=== PATIENT | male | born 1930 | race Caucasian/White ===

== ENCOUNTER 2016-08-05 10:51 | Inpatient (IN) | payer MEDICARE ==
[2016-08-05] MEDS ORDERED: NITROGLYCERIN SL TABS 0.4 MG TAB SUBLINGUAL STA (16:01)
[2016-08-05] MEDS ORDERED: MORPHINE SULFATE 2 MG/ML SYRINGE IVP PRN (16:04)
[2016-08-05] MEDS ORDERED: SODIUM CHLORIDE 0.9% 1,000 ML in EMPTY BAG 1 BAG IV ONE (16:11)
[2016-08-05] MEDS ORDERED: ATORVASTATIN 80 MG TAB PO STA (16:11)
[2016-08-05] MEDS ORDERED: ALPRAZolam 0.25 MG TAB PO PRN (16:11)
[2016-08-05] MEDS ORDERED: ALPRAZolam 0.5 MG TAB PO PRN (16:11)
[2016-08-05] MEDS ORDERED: NITROGLYCERIN SL TABS 0.4 MG TAB SUBLINGUAL PRN (16:11)
[2016-08-05] MEDS ORDERED: ASPIRIN 325 MG TAB PO STA (16:11)
[2016-08-05] MEDS ORDERED: ASPIRIN 81 MG CHEW PO STA (16:14)
[2016-08-05] MEDS ORDERED: HEPARIN SODIUM,PORCINE/D5W PMX 25,000 UNIT in DEXTROSE/WATER 1 500ML.BAG IV STA (16:16)
[2016-08-05] MEDS: CALCITONIN 200 USP/1 NASAL SPRAY 3.7ML BTL NASAL SCH (16:44)
[2016-08-05 18:17] LABS: Basophils % (A) 0 %; CH 35.2; Eosinophils # (A) 0.3 k/uL (0-0.7); Eosinophils % (A) 3 %; HCT 50.3 % (39.0-53.0); HDW 3.61; Luc % (Auto) 1; Lymphocytes % (A) 11 %; MCH 34.3 pg (25.0-35.0); MCHC 33.8 g/dL (31.0-37.0); MCV 101.5 fL (80.0-100.0); Macrocytosis Slight; Mean Platelet Volume 7.6; Monocytes # (A) 0.4 k/uL (0-1.0); Monocytes % (A) 4 %; Neutrophils # (A) 7.8 k/uL (1.3-7.7); Neutrophils % (A) 81 %; Poikilocytosis Slight; RBC 4.96 m/uL (4.30-5.90); WBC 9.7 k/uL (3.8-10.6); WBC (Perox) 10.04
[2016-08-05 18:33] LABS: INR 3.5 (<1.1); Partial Thromboplastin Time 32.8 sec (22.0-30.0); Prothrombin Time 34.1 sec (9.0-12.0)
[2016-08-05 18:35] LABS: ALT 40 U/L (21-72); AST 82 U/L (17-59); Alkaline Phosphatase 61 U/L (38-126); Anion Gap 10 mmol/L; Blood Urea Nitrogen 21 mg/dL (9-20); Calcium 8.8 mg/dL (8.4-10.2); Carbon Dioxide 25 mmol/L (22-30); Chloride 103 mmol/L (98-107); Glucose 130 mg/dL (74-99); Magnesium 1.8 mg/dL (1.6-2.3); Non-African American GFR(MDRD) >60 (>60 ml/min/1.73 sqM); Potassium 4.6 mmol/L (3.5-5.1); Sodium 138 mmol/L (137-145); Total Bilirubin 1.7 mg/dL (0.2-1.3); Total Protein 6.8 g/dL (6.3-8.2)
[2016-08-05 18:56] LABS: Creatine Kinase MB 14.2 ng/mL (0.0-2.4); Troponin I 5.66 ng/mL (0.000-0.034)
[2016-08-05 19:13] LABS: Manual Review Performed
--- NOTE | 2016-08-05 19:38 | XR ---
EXAMINATION TYPE: XR Hip RT and AP Pelvis DATE OF EXAM: 08/05/2016 7:34 PM COMPARISON: NONE HISTORY: Hip fracture TECHNIQUE: A single AP view of the pelvis is obtained. Two views of the right hip are obtained. FINDINGS: There is a fracture of the right femoral neck with slight impaction and coxa vera deformit y. There is no dislocation. Pelvic ring is intact. CONCLUSION: Impacted right femoral neck fracture.
--- NOTE | 2016-08-05 19:39 | XR ---
EXAMINATION TYPE: XR femur RT DATE OF EXAM: 08/05/2016 7:34 PM COMPARISON: NONE HISTORY: Hip pain TECHNIQUE: 4 views FINDINGS: There is an impacted fracture of the femoral neck with coxa vera deformity. Knee joint appe ars intact. There is vascular calcification. IMPRESSION: Femoral neck fracture.
[2016-08-05] MEDS ORDERED: PHYTONADIONE 5 MG in SODIUM CHLORIDE 0.9% 50 ML IVPB STA (19:58)
[2016-08-05] MEDS: MORPHINE SULFATE 2 MG/ML SYRINGE IVP PRN (20:48)
[2016-08-05] MEDS: SOTALOL 80 MG TAB PO SCH (21:02)
[2016-08-06 01:01] LABS: INR 2.2 (<1.1); Partial Thromboplastin Time 49.3 sec (22.0-30.0); Prothrombin Time 21.4 sec (9.0-12.0)
[2016-08-06] MEDS: MORPHINE SULFATE 2 MG/ML SYRINGE IVP PRN ×2 (05:36→18:56)
[2016-08-06 06:57] LABS: Basophils % (A) 0 %; CH 35.2; CHCM 34.9; Eosinophils # (A) 0.3 k/uL (0-0.7); Eosinophils % (A) 4 %; HCT 45.2 % (39.0-53.0); HDW 3.62; Luc # (Auto) 0.07; Luc % (Auto) 1; Lymphocytes % (A) 12 %; MCH 33.8 pg (25.0-35.0); MCHC 33.2 g/dL (31.0-37.0); MCV 101.7 fL (80.0-100.0); Macrocytosis Slight; Mean Platelet Volume 7.8; Monocytes # (A) 0.4 k/uL (0-1.0); Monocytes % (A) 5 %; Neutrophils # (A) 6.3 k/uL (1.3-7.7); Neutrophils % (A) 78 %; Poikilocytosis Slight; RBC 4.44 m/uL (4.30-5.90); RDW 15.3 % (11.5-15.5); WBC 8.1 k/uL (3.8-10.6); WBC (Perox) 8.13
[2016-08-06 07:06] LABS: INR 1.3 (<1.1); Partial Thromboplastin Time 39.8 sec (22.0-30.0)
[2016-08-06 07:11] LABS: Anion Gap 8 mmol/L; Blood Urea Nitrogen 19 mg/dL (9-20); Calcium 8.5 mg/dL (8.4-10.2); Carbon Dioxide 28 mmol/L (22-30); Chloride 104 mmol/L (98-107); Glucose 123 mg/dL (74-99); Non-African American GFR(MDRD) >60 (>60 ml/min/1.73 sqM); Potassium 4.5 mmol/L (3.5-5.1); Sodium 140 mmol/L (137-145)
[2016-08-06] MEDS ORDERED: ASPIRIN 325 MG TAB PO STA (08:01)
[2016-08-06] MEDS: CALCITONIN 200 USP/1 NASAL SPRAY 3.7ML BTL NASAL SCH (08:23)
[2016-08-06] MEDS: SOTALOL 80 MG TAB PO SCH ×2 (08:23→20:43)
--- NOTE | 2016-08-06 09:17 | P.CNOR ---
History of Present Illness - [facility] Consult date: 08/06/16 Consult reason: fracture (Right hip fracture) History of present illness: The patient is an 85-year-old male who was transferred from [facility] yesterday for interventional cardiac cath. The patient originally presented to [facility] with right hip pain after sustaining a fall at home. Upon evaluation the patient was found to have elevated cardiac enzymes and and a right femoral neck fracture. The patient was seen and evaluated by Dr. Thomas, orthopedic surgeon, at [facility] and a right hip hemiarthroplasty was scheduled until further cardiac workup revealed for a need interventional cardiac catheterization by Dr. Napier. Subsequently the patient was transferred to [facility]. We were consulted for further evaluation and care of his right hip fracture. The patient states that he does not recall how he fell but he denies hitting his head and states that he did hit his right shoulder on the wall before falling on the floor. He denies shoulder pain at this time. It is believed that he had a cardiac event prior to the fall. He denies using any assistive devices at home such as a walker or cane. The patient was seen and evaluated this morning at the bedside. He states he has hip pain at this time. Review of Systems All systems: negative Constitutional: Denies chills, Denies fever Eyes: right discharge Cardiovascular: Denies chest pain, Denies shortness of breath Gastrointestinal: Denies abdominal pain, Denies nausea, Denies vomiting Musculoskeletal: right: hip pain Neurological: Denies head injury, Denies headaches Past Medical History Past Medical History: Atrial Fibrillation, Asthma, Coronary Artery Disease (CAD) , Myocardial Infarction (GA), Osteoarthritis (OA), Prostate Disorder Additional Past Medical History / Comment(s): 08-05-16pt came from [facility]-fall/rt fenoral head fx, c/p. other past medical hx include: diverticulosis, colon cancer 1977(had sx-no chemo or radiation), gallstones(had sx),occ constipation, rt eye cataract, asthma as a child, hayfever, oa- rt hip Last Myocardial Infarction Date:: 1988 History of Any Multi-Drug Resistant Organisms: None Reported Past Surgical History: Bowel Resection, Cholecystectomy, Coronary Bypass/CABG, Heart Catheterization, Hernia Repair, Tonsillectomy Additional Past Surgical History / Comment(s): colonoscopies,polypectomy, aaa repair 2000, triple vessel cabg 1988, lt carotid endarterectomy,rt inguinal hernia, "has teresa in colon since sx" Past Anesthesia/Blood Transfusion Reactions: No Reported Reaction Additional Past Anesthesia/Blood Transfusion Reaction / Comm: 2000-received blood -no reaction Past Psychological History: No Psychological Hx Reported Additional Psychological History / Comment(s): pt lives alone in own home, no pets,(a modular 1 level w/ 4 steps up to door).uses a walker when up.no other medical equipment at home. no outside services. still drives-goes out to breakfast every am.pt served in the [employer] and worked at [employer] till retired. Smoking Status: Former smoker Past Alcohol Use History: None Reported Additional Past Alcohol Use History / Comment(s): quit smoking 1985 stated smoked between 5-10 years 1ppd. Past Drug Use History: None Reported - Past Family History Mother Family Medical History: No Reported History Additional Family Medical History / Comment(s): from "natural causes" Father Additional Family Medical History / Comment(s): kidney failure Medications and Allergies Home Medications Medication Instructions Recorded Confirmed Type Sotalol [Betapace] 80 mg PO DAILY 08/05/16 08/05/16 History Warfarin [Coumadin] 2.5 mg PO SUTH 08/05/16 08/05/16 History Warfarin [Coumadin] 5 mg PO MOTUWEFRSA 08/05/16 08/05/16 History Allergies Allergy/AdvReac Type Severity Reaction Status Date / Time No Known Allergies Allergy Verified 08/05/16 16:19 Physical Examination The patient is in no acute distress. He is alert and oriented 2. The patient' s head is normocephalic atraumatic. Cervical spine exam reveals no pain upon palpation and no step-offs noted. Exam of the bilateral upper extremities reveal no pain upon palpation or passive range of motion. No right shoulder pain on palpation. No open wounds are present. Exam of the bilateral lower extremities reveal chronic skin changes to the lower legs due to peripheral vascular insufficiency. No open wounds are present. The right lower extremity reveals a externally rotated and shortened leg. There is pain to any motion to the right leg. There is pain upon palpation of the lateral hip. There is no pain to the distal femur or knee. Bilateral calves are soft and nontender. Neurological and circulatory status is intact. He appears to have blood in his urine that is visible in the wilson catheter. Results - Labs Labs: Abnormal Lab Results - Last 24 Hours (Table) 08/05/16 08/05/16 08/05/16 Range/Units 17:44 17:44 17:44 MCV 101.5 H (80.0-100.0) fL Plt Count 83 L (150-450) k/uL Neutrophils # 7.8 H (1.3-7.7) k/uL PT 34.1 H (9.0-12.0) sec APTT 32.8 H (22.0-30.0) sec BUN (9-20) mg/dL Glucose (74-99) mg/dL Total Bilirubin (0.2-1.3) mg/dL AST (17-59) U/L Total Creatine Kinase 277 H (55-170) U/L CK-MB (CK-2) 14.2 H* (0.0-2.4) ng/mL Troponin I 5.660 H* (0.000-0.034) ng/mL 08/05/16 08/06/16 08/06/16 Range/Units 17:44 00:32 06:26 MCV (80.0-100.0) fL Plt Count (150-450) k/uL Neutrophils # (1.3-7.7) k/uL PT 21.4 H 13.0 H (9.0-12.0) sec APTT 49.3 H 39.8 H (22.0-30.0) sec BUN 21 H (9-20) mg/dL Glucose 130 H (74-99) mg/dL Total Bilirubin 1.7 H (0.2-1.3) mg/dL AST 82 H (17-59) U/L Total Creatine Kinase (55-170) U/L CK-MB (CK-2) (0.0-2.4) ng/mL Troponin I (0.000-0.034) ng/mL 08/06/16 08/06/16 Range/Units 06:26 06:26 MCV 101.7 H (80.0-100.0) fL Plt Count 72 L (150-450) k/uL Neutrophils # (1.3-7.7) k/uL PT (9.0-12.0) sec APTT (22.0-30.0) sec BUN (9-20) mg/dL Glucose 123 H (74-99) mg/dL Total Bilirubin (0.2-1.3) mg/dL AST (17-59) U/L Total Creatine Kinase (55-170) U/L CK-MB (CK-2) (0.0-2.4) ng/mL Troponin I (0.000-0.034) ng/mL H & H 08/05/16 08/06/16 Range/Units 17:44 06:26 Hgb 17.0 15.0 (13.0-17.5) gm/dL Hct 50.3 45.2 (39.0-53.0) % Coagulation 08/05/16 08/06/16 08/06/16 Range/Units 17:44 00:32 06:26 INR 3.5 2.2 1.3 (<1.1) Result Diagrams: 08/06/16 06:26 08/06/16 06:26 - Diagnostic results Hip x-ray: image reviewed (Impacted right femoral neck fracture) Assessment and Plan (1) Fall Status: Acute (2) Hip pain, right Status: Acute (3) Closed right hip fracture Status: Acute Plan: The clinical and x-ray findings were discussed with the patient. No family is at the bedside today. The case was also discussed at length with Dr. Orellana. The patient is scheduled to undergo a cardiac cath with possible stents today. We will await medical and cardiology clearance for surgery. The patient is most likely a high risk for surgery due to current cardiac condition. The patient will be scheduled for a right hip hemiarthroplasty as soon as he is cleared for surgery, ideally in the next 24-48 hours to improve patient outcome. Continue pain control. Continue bedrest and non-weightbearing to the right lower extremity. We will continue to follow the patient closely and make further recommendations depending on patient's course.
[2016-08-06] MEDS ORDERED: LIDOCAINE 2% INJ 20 MG/ML (20 ML MDV) ONE (12:48)
[2016-08-06] MEDS ORDERED: MIDAZOLAM 2 MG/2 ML VIAL ONE (13:10)
[2016-08-06] MEDS ORDERED: fentaNYL (PF) 50 MCG/ML 2 ML AMP IV ONE (13:13)
[2016-08-06] MEDS ORDERED: fentaNYL (PF) 50 MCG/ML 2 ML AMP ONE (13:13)
[2016-08-06] MEDS ORDERED: LIDOCAINE 2% INJ 20 MG/ML SQ ONE (13:14)
[2016-08-06] MEDS ORDERED: HYDROcodone/APAP 5-325MG 1 EACH TAB PO PRN (13:18)
[2016-08-06] MEDS ORDERED: FUROSEMIDE 10 MG/ML 4 ML VIAL ONE (13:21)
[2016-08-06] MEDS ORDERED: IOHEXOL 350 MG/ML 100 ML BOTTLE INJ ONE (13:22)
[2016-08-06] MEDS ORDERED: FUROSEMIDE 10 MG/ML 4 ML VIAL IV ONE (13:23)
[2016-08-06] MEDS ORDERED: SODIUM CHLORIDE 0.9% 1,000 ML IV ONE (13:25)
[2016-08-06] MEDS ORDERED: RX INFO: IV CONTRAST WAS GIVEN 1 EACH MISC MISCELLANE PRN (13:27)
--- NOTE | 2016-08-06 14:09 | P.HPIM ---
History of Present Illness H&P Date: 08/06/16 85-year-old gentleman those initially seen at [facility] after sustaining a fall and having a right femoral neck fracture. Patient stated he is had multiple falls in the recent times. Patient has been on anticoagulant for her atrial fibrillation and maintained on sotalol. Patient does have a history of CAD status post CABG. In the initial evaluation patient was noted to have an elevated troponin with EKG consistent with the Q waves in the lateral inferior leads. Patient was hence transferred to [facility] for Jorge catheterization. Today on evaluation patient appears to be slightly confused states to have pain in his hip. Patient has had any chest pain, difficult in breathing, nausea, vomiting. Patient apparently had an episode of agitation where he pulled his [place] catheter and thereafter noting blood in his urine. Patient's heparin was held. Currently with his mental status there is some concern or if patient should undergo cardiac catheterization or not Review of Systems ROS unobtainable: due to mental status Past Medical History Past Medical History: Atrial Fibrillation, Asthma, Coronary Artery Disease (CAD) , Myocardial Infarction (GA), Osteoarthritis (OA), Prostate Disorder Additional Past Medical History / Comment(s): 08-05-16pt came [facility]-fall/rt fenoral head fx, c/p. other past medical hx include: diverticulosis, colon cancer 1977(had sx-no chemo or radiation), gallstones(had sx),occ constipation, rt eye cataract, asthma as a child, hayfever, oa- rt hip Last Myocardial Infarction Date:: 1988 History of Any Multi-Drug Resistant Organisms: None Reported Past Surgical History: Bowel Resection, Cholecystectomy, Coronary Bypass/CABG, Heart Catheterization, Hernia Repair, Tonsillectomy Additional Past Surgical History / Comment(s): colonoscopies,polypectomy, aaa repair 2000, triple vessel cabg 1988, lt carotid endarterectomy,rt inguinal hernia, "has teresa in colon since sx" Past Anesthesia/Blood Transfusion Reactions: No Reported Reaction Additional Past Anesthesia/Blood Transfusion Reaction / Comment(s): 2000- received blood -no reaction Past Psychological History: No Psychological Hx Reported Additional Psychological History / Comment(s): pt lives alone in own home, no pets,(a modular 1 level w/ 4 steps up to door).uses a walker when up.no other medical equipment at home. no outside services. still drives-goes out to breakfast every am.pt served in the [employer] and worked at [employer] till retired. Smoking Status: Former smoker Past Alcohol Use History: None Reported Additional Past Alcohol Use History / Comment(s): quit smoking 1985 stated smoked between 5-10 years 1ppd. Past Drug Use History: None Reported - Past Family History Mother Family Medical History: No Reported History Additional Family Medical History / Comment(s): from "natural causes" Father Additional Family Medical History / Comment(s): kidney failure Medications and Allergies Home Medications Medication Instructions Recorded Confirmed Type Sotalol [Betapace] 80 mg PO DAILY 08/05/16 08/05/16 History Warfarin [Coumadin] 2.5 mg PO SUTH 08/05/16 08/05/16 History Warfarin [Coumadin] 5 mg PO MOTUWEFRSA 08/05/16 08/05/16 History Allergies Allergy/AdvReac Type Severity Reaction Status Date / Time No Known Allergies Allergy Verified 08/05/16 16:19 Physical Exam Vitals: Vital Signs Temp Pulse Pulse Resp BP Pulse Ox 08/06/16 12:08 98.4 F 78 16 138/73 89 L 08/06/16 08:00 97.4 F L 85 117/75 90 L 08/06/16 07:54 97.4 F L 83 16 117/75 90 L 08/06/16 04:00 98.0 F 81 18 121/67 91 L 08/06/16 00:00 98.1 F 74 18 124/62 91 L 08/05/16 21:02 96.2 F L 92 18 140/75 90 L 08/05/16 20:30 98.3 F 102 H 18 160/95 93 L 08/05/16 15:30 96.3 F L 75 18 143/82 93 L Intake and Output 08/05/16 08/06/16 08/06/16 22:59 06:59 14:59 Intake Total 1285.2 150 Output Total 600 550 Balance -600 735.2 150 Intake: IV 1285.2 150 Heparin Sodium,Porcine/ 235.2 D5w Pmx 25,000 unit In Dextrose/Water 1 500ml. bag @ 11.1 UNITS/KG/HR 19 .86 mls/hr IV .Q24H STA Rx#:[id number] Phytonadione 5 mg In 50 Sodium Chloride 0.9% 50 ml @ 100 mls/hr IVPB ONCE STA Rx#:[id number] Sodium Chloride 0.9% 1, 1000 000 ml In Empty Bag 1 bag @ 1 ML/KG/HR 89.5 mls/hr IV .[id number] ONE Rx#: [id number] Output: Urine 600 550 Other: Voiding Method Indwelling Catheter Indwelling Catheter Indwelling Catheter Weight 89.5 kg 88.5 kg - Exam Physical exam Gen. appearance oriented 3 in no distress Neck is supple no JVD Lungs good air movement no rhonchi wheezing or crackles appreciate it. Heart S1-S2 heard regular rate and rhythm no murmurs appreciated Abdomen is soft nontender no organomegaly bowel sounds are intact Neurologically cranial nerves II-12 grossly intact no focal motor or sensory deficits noted Skin lower extremities and wound is noted on the left lower extremity minimal erythema. Significantly improved. Results CBC & Chem 7: 08/06/16 06:26 08/06/16 06:26 Labs: Abnormal Lab Results - Last 24 Hours (Table) 08/05/16 08/05/16 08/05/16 Range/Units 17:44 17:44 17:44 MCV 101.5 H (80.0-100.0) fL Plt Count 83 L (150-450) k/uL Neutrophils # 7.8 H (1.3-7.7) k/uL PT 34.1 H (9.0-12.0) sec APTT 32.8 H (22.0-30.0) sec BUN (9-20) mg/dL Glucose (74-99) mg/dL Total Bilirubin (0.2-1.3) mg/dL AST (17-59) U/L Total Creatine Kinase 277 H (55-170) U/L CK-MB (CK-2) 14.2 H* (0.0-2.4) ng/mL Troponin I 5.660 H* (0.000-0.034) ng/mL 08/05/16 08/06/16 08/06/16 Range/Units 17:44 00:32 06:26 MCV (80.0-100.0) fL Plt Count (150-450) k/uL Neutrophils # (1.3-7.7) k/uL PT 21.4 H 13.0 H (9.0-12.0) sec APTT 49.3 H 39.8 H (22.0-30.0) sec BUN 21 H (9-20) mg/dL Glucose 130 H (74-99) mg/dL Total Bilirubin 1.7 H (0.2-1.3) mg/dL AST 82 H (17-59) U/L Total Creatine Kinase (55-170) U/L CK-MB (CK-2) (0.0-2.4) ng/mL Troponin I (0.000-0.034) ng/mL 08/06/16 08/06/16 Range/Units 06:26 06:26 MCV 101.7 H (80.0-100.0) fL Plt Count 72 L (150-450) k/uL Neutrophils # (1.3-7.7) k/uL PT (9.0-12.0) sec APTT (22.0-30.0) sec BUN (9-20) mg/dL Glucose 123 H (74-99) mg/dL Total Bilirubin (0.2-1.3) mg/dL AST (17-59) U/L Total Creatine Kinase (55-170) U/L CK-MB (CK-2) (0.0-2.4) ng/mL Troponin I (0.000-0.034) ng/mL Thrombosis Risk Factor Assmnt - Choose All That Apply Each Factor Represents 1 point: Medical pt on bed rest, Obesity (BMI >25) Other Risk Factors: Yes Each Risk Factor Represents 2 Points: Malignancy Each Risk Factor Represents 3 Points: Age 75 years or older Other congenital or acquired thrombophilia - If yes, enter type in comment: No Thrombosis Risk Factor Assessment Total Risk Factor Score: 7 Thrombosis Risk Factor Assessment Level: High Risk Assessment and Plan Plan: #1 NSTEMI #2 right femoral neck fracture #3 osteoporosis and the diagnosis from the recent fracture #4 history of CAD status post CABG #5 aortic aneurysm repair #6 history of atrial fibrillation on anticoagulation #7 acute toxic encephalopathy #8 hematuria due to trauma Plan Judicious use of narcotics. Patient will likely undergo cardiac catheterization after family is updated. Once patient undergoes cardiac cath, and discuss timing of the hip surgery. On weightbearing of the right hip.
[2016-08-06] MEDS: SODIUM CHLORIDE 0.9% 1,000 ML IV SCH ×2 (15:34→23:10)
--- NOTE | 2016-08-06 16:19 | ECHOF ---
Referral Reason:chest pain MEASUREMENTS -------- HEIGHT: 180.3 cm WEIGHT: 88.5 kg BP: IVSd: 1.0 cm (0.6 - 1.1) LVIDd: 4.8 cm (3.9 - 5.3) LVPWd: 1.0 cm (0.6 - 1.1) IVSs: 1.3 cm LVIDs: 3.8 cm LVPWs: 0.9 cm Ao Diam: 2.7 cm (2.0 - 3.7) AV Cusp: 1.6 cm (1.5 - 2.6) LA Diam: 4.1 cm (2.7 - 3.8) MV EXCURSION: 12.495 mm (> 18.000) MV EF SLOPE: 45 mm/s (70 - 150) EPSS: 1.8 cm MV E Primo: 0.70 m/s MV DecT: 274 ms MV A Primo: 0.68 m/s MV E/A Ratio: 1.02 AR PHT: 372 ms RAP: 5.00 mmHg RVSP: 9.20 mmHg FINDINGS -------- Sinus rhythm. This was a technically good study. Overall left ventricular systolic function is moderately impaired with, an EF between 35 - 40 %. Mid to basal inferiorlateral is hypokinetic The right ventricle is normal in size and function. The left atrium is mildly dilated. The right atrium is normal in size. Aortic valve is trileaflet and is mildly thickened. There is mild aortic regurgitation. The mitral valve leaflets are mildly thickened. Mild mitral regurgitation is present. Mild tricuspid regurgitation present. The right ventricular systolic pressure, as measured by Doppler, is 9.20mmHg. Pulmonic valve appears structurally normal. The aortic root size is normal. The pericardium is normal. CONCLUSIONS -------- 1. Sinus rhythm. 2. The mitral valve leaflets are mildly thickened. 3. Mild mitral regurgitation is present. 4. Mild tricuspid regurgitation present. 5. The right ventricular systolic pressure, as measured by Doppler, is 9.20mmHg. 6. Pulmonic valve appears structurally normal. 7. The aortic root size is normal. 8. The pericardium is normal. 9. This was a technically good study. 10. Overall left ventricular systolic function is moderately impaired with, an EF between 35 - 40 %. 11. Mid to basal inferiorlateral is hypokinetic 12. The right ventricle is normal in size and function. 13. The left atrium is mildly dilated. 14. The right atrium is normal in size. 15. Aortic valve is trileaflet and is mildly thickened. 16. There is mild aortic regurgitation. DAY CARE PROVIDER: Faina Ibarra RDCS
[2016-08-06] MEDS: METOPROLOL TARTRATE 25 MG TAB PO SCH (18:50)
--- NOTE | 2016-08-06 19:03 | PN ---
This patient was transferred from [facility]. Patient sustained fractures hip and also had inferolateral myocardial infarction. Attempt was made to do a cardiac catheterization, but wire could not be advanced because of severe right iliac stenosis. The patient also has evidence of gross hematuria. In view of that, patient cardiac catheterization was cancelled at present. We will continue medical treatment. Once the patient's hematuria clears up, we will discuss with Dr. Napier repeat attempt for the cardiac catheterization.
--- NOTE | 2016-08-06 21:45 | CC ---
DATE OF SERVICE: Performing physician: Charlie Napier, distiller. PROCEDURE PERFORMED: Attempted heart catheterization. INDICATION: This is a pleasant 85-year-old gentleman who presented to [facility] with syncope. He was ruled in for acute non-ST elevation myocardial infarction. He has significant EKG changes consistent with ischemia. I discussed with the patient the option between medical treatment versus conservative invasive treatment and he would like to proceed with heart catheterization. Approach: Right common femoral artery. COMPLICATIONS: None. Level of sedation: Moderate with sedation, length of 15 minutes. PROCEDURE DESCRIPTION: After obtaining informed consent, the patient was brought to the cardiac lab director. The right common femoral artery was cannulated using micropuncture technique. The micropuncture wire passed easily. Then I placed 6 Mauritian sheath in the right common femoral artery. Subsequently, I tried to advance a JL4 catheter but the catheter will not cross distal aorta, common iliac junction. At that point, I decided to stop and to abort the procedure. Postprocedure management will be: 1. Medical treatment. 2. Follow up with the patient.
[2016-08-07 03:38] LABS: Appearance,Urine Turbid (Clear); Bacteria,Urine Rare /hpf; Bilirubin,Urine Negative (Negative); Glucose,Urine (UA) Negative (Negative); Ketones,Urine Negative (Negative); Leukocyte Esterase,Urine Small (Negative); Mucus,Urine Moderate /hpf; Nitrite,Urine Negative (Negative); PH, Urine 5.5 (5.0-8.0); Particle Count 24080; Protein,Urine 1+ (Negative); RBC,Urine >182 /hpf (0-5); Specific Gravity,Urine 1.019 (1.001-1.035); Squamous Epithelial Cell,Urine 3 /hpf (0-4); UA Billing (MACRO vs. MICRO) MICRO; Urobilinogen,Urine <2.0 mg/dL (<2.0); WBC,Urine 70 /hpf (0-5)
[2016-08-07 07:09] LABS: Basophils % (A) 0 %; CHCM 35.4; Eosinophils # (A) 0.4 k/uL (0-0.7); Eosinophils % (A) 5 %; HCT 46.8 % (39.0-53.0); HDW 3.71; HGB 15.8 gm/dL (13.0-17.5); Luc # (Auto) 0.14; Luc % (Auto) 2; Lymphocytes # (A) 1.1 k/uL (1.0-4.8); Lymphocytes % (A) 12 %; MCH 33.8 pg (25.0-35.0); MCHC 33.8 g/dL (31.0-37.0); MCV 99.9 fL (80.0-100.0); Macrocytosis Slight; Mean Platelet Volume 8.4; Monocytes # (A) 0.4 k/uL (0-1.0); Monocytes % (A) 5 %; Neutrophils # (A) 7.1 k/uL (1.3-7.7); Neutrophils % (A) 77 %; Poikilocytosis Slight; RBC 4.69 m/uL (4.30-5.90); RDW 15.1 % (11.5-15.5); WBC 9.2 k/uL (3.8-10.6); WBC (Perox) 9.05
[2016-08-07 07:29] LABS: ALT 35 U/L (21-72); AST 51 U/L (17-59); Alkaline Phosphatase 56 U/L (38-126); Anion Gap 6 mmol/L; Blood Urea Nitrogen 23 mg/dL (9-20); Calcium 8.7 mg/dL (8.4-10.2); Carbon Dioxide 30 mmol/L (22-30); Chloride 106 mmol/L (98-107); Glucose 104 mg/dL (74-99); Magnesium 1.8 mg/dL (1.6-2.3); Non-African American GFR(MDRD) >60 (>60 ml/min/1.73 sqM); Potassium 4.3 mmol/L (3.5-5.1); Sodium 142 mmol/L (137-145); Total Bilirubin 1.6 mg/dL (0.2-1.3)
[2016-08-07] MEDS: METOPROLOL TARTRATE 25 MG TAB PO SCH ×2 (08:47→19:45)
[2016-08-07] MEDS: ASPIRIN 81 MG CHEW PO SCH (08:47)
[2016-08-07] MEDS: ATORVASTATIN 40 MG TAB PO SCH (08:47)
[2016-08-07] MEDS: CALCITONIN 200 USP/1 NASAL SPRAY 3.7ML BTL NASAL SCH (08:47)
[2016-08-07] MEDS: SOTALOL 80 MG TAB PO SCH ×2 (08:48→19:45)
--- NOTE | 2016-08-07 09:18 | XR ---
EXAMINATION TYPE: XR chest 1V portable DATE OF EXAM: 08/07/2016 9:06 AM COMPARISON: 08/04/2016 HISTORY: Shortness of breath TECHNIQUE: Single frontal view of the chest is obtained. FINDINGS: There is an asymmetric area of interstitial prominence and basilar consolidation on the le ft. Heart is enlarged and there is postoperative change. Surgical clips in the soft tissues left neck noted. IMPRESSION: 1. Stable x-ray with left basilar consolidation. There is an asymmetric interstitial process which co uld been the basis of interstitial pneumonitis, pneumonia or venous congestion.
--- NOTE | 2016-08-07 10:44 | P.PN ---
Subjective Principal diagnosis: Right femoral neck fracture Patient is an 85-year-old male seen at bedside today. He is pending clearance to undergo right hip hemiarthroplasty for his right femoral neck fracture. He has not been cleared yet by cardiology which it appears he is pending a cardiac cath. He continues to have right hip pain at the fracture site as expected. He denies numbness or tingling. He denies calf pain. He denies any new complaints. Review of systems is negative for fever, chills, chest pain, shortness breath, nausea, vomiting, dizziness, slurred speech or other. Objective - Vital Signs Vital signs: Vital Signs Temp 98.7 F 08/07/16 08:00 Pulse 115 H 08/07/16 08:00 Resp 18 08/07/16 04:00 BP 129/78 08/07/16 08:00 Pulse Ox 95 08/07/16 08:00 Intake & Output 08/06/16 08/07/16 08/07/16 18:59 06:59 18:59 Intake Total 150 825 Output Total 1000 1100 Balance -850 -275 Weight 89 kg Intake: IV 150 825 Sodium Chloride 0.9% 1, 825 000 ml @ 75 mls/hr IV . [id number] Rx#:[id number] Output: Urine 1000 1100 Other: Voiding Method Indwelling Catheter Indwelling Catheter Indwelling Catheter # Bowel Movements 0 - Exam Inspection of the right lower extremity shows a shortened externally rotated leg. There are no open wounds or lacerations. Sensation to light touch is intact throughout the right lower extremity. He has active motor with dorsiflexion and plantarflexion of the ankle, foot and toes. 1+ dorsalis pedis pulses present and less than 2 second cap refill is present. Calf is soft and nontender. - Constitutional General appearance: Present: no acute distress - Psychiatric Psychiatric: Present: A&O x's 3, appropriate affect, intact judgment & insight - Labs CBC & Chem 7: 08/07/16 06:53 08/07/16 06:53 Labs: Abnormal Lab Results - Last 24 Hours (Table) 08/07/16 08/07/16 08/07/16 Range/Units 03:00 06:53 06:53 Plt Count 74 L (150-450) k/uL BUN 23 H (9-20) mg/dL Glucose 104 H (74-99) mg/dL Total Bilirubin 1.6 H (0.2-1.3) mg/dL Total Protein 6.0 L (6.3-8.2) g/dL Albumin 3.0 L (3.5-5.0) g/dL Urine Protein 1+ H (Negative) Urine Blood Large H (Negative) Ur Leukocyte Esterase Small H (Negative) Urine RBC >182 H (0-5) /hpf Urine WBC 70 H (0-5) /hpf Urine Bacteria Rare H (None) /hpf Hyaline Casts 9 H (0-2) /lpf Urine Mucus Moderate H (None) /hpf Assessment and Plan (1) Closed right hip fracture Narrative/Plan: He'll continue with routine orthopedic protocol including pain management, nonweightbearing, neurovascular checks, DVT prophylaxis per cardiology and internal medicine, and medical management. Once he is cleared by cardiology and internal medicine plan will be to proceed with surgical intervention including a right hip hemiarthroplasty per Dr. Orellana. Status: Acute Time with Patient: Less than 30
[2016-08-07] MEDS: MORPHINE SULFATE 2 MG/ML SYRINGE IVP PRN (12:27)
--- NOTE | 2016-08-07 13:28 | P.PN ---
Subjective No interval changes. Complain of mild discomfort in the hip and groin. Objective - Vital Signs Vital signs: Vital Signs Temp 98.7 F 08/07/16 08:00 Pulse 58 L 08/07/16 12:00 Resp 18 08/07/16 04:00 BP 100/54 08/07/16 12:00 Pulse Ox 96 08/07/16 12:00 Intake & Output 08/06/16 08/07/16 08/07/16 18:59 06:59 18:59 Intake Total 150 825 Output Total 1000 1100 Balance -850 -275 Weight 89 kg Intake: IV 150 825 Sodium Chloride 0.9% 1, 825 000 ml @ 75 mls/hr IV . [id number] [facility] Rx#:[id number] Output: Urine 1000 1100 Other: Voiding Method Indwelling Catheter Indwelling Catheter Indwelling Catheter # Bowel Movements 0 - Exam Focused exam shows the right leg is shortened and externally rotated. Motor and sensory function is intact in the right leg. - Labs CBC & Chem 7: 08/07/16 06:53 08/07/16 06:53 Labs: Abnormal Lab Results - Last 24 Hours (Table) 08/07/16 08/07/16 08/07/16 Range/Units 03:00 06:53 06:53 Plt Count 74 L (150-450) k/uL BUN 23 H (9-20) mg/dL Glucose 104 H (74-99) mg/dL Total Bilirubin 1.6 H (0.2-1.3) mg/dL Total Protein 6.0 L (6.3-8.2) g/dL Albumin 3.0 L (3.5-5.0) g/dL Urine Protein 1+ H (Negative) Urine Blood Large H (Negative) Ur Leukocyte Esterase Small H (Negative) Urine RBC >182 H (0-5) /hpf Urine WBC 70 H (0-5) /hpf Urine Bacteria Rare H (None) /hpf Hyaline Casts 9 H (0-2) /lpf Urine Mucus Moderate H (None) /hpf Assessment and Plan (1) Closed right hip fracture Status: Acute Plan: The patient is not yet cleared for surgery by cardiology and internal medicine. Once the patient is cleared for surgery he will need a hemiarthroplasty. It doesn't sound like he is going to be cleared for surgery tomorrow. We'll plan on performing surgery once he is cleared this coming Tuesday or Tuesday. If things change and he is cleared by tomorrow we can take him to surgery tomorrow. In the interim he is to remain on bedrest with strict non- weightbearing of his right leg.
[2016-08-07] MEDS ORDERED: FUROSEMIDE 10 MG/ML 2 ML VIAL IV ONE (16:02)
--- NOTE | 2016-08-07 16:14 | P.PN ---
Subjective This is an 85-year-old gentleman who was transferred from [facility]. Patient sustained a hip fracture as well as an inferolateral myocardial infarction. Attempt was made to do a cardiac catheterization yesterday but the wire could not be advanced because of severe right iliac stenosis. The patient also had evidence of gross hematuria, likely secondary to trauma. In view of that patient's cardiac catheterization was canceled. Chest x-ray done this morning showed possible venous congestion. Upon examination, patient is resting in bed denying any complaints of shortness of breath or chest discomfort. Objective - Vital Signs Vital signs: Vital Signs Temp 98.7 F 08/07/16 08:00 Pulse 58 L 08/07/16 12:00 Resp 18 08/07/16 04:00 BP 100/54 08/07/16 12:00 Pulse Ox 96 08/07/16 12:00 Intake & Output 08/06/16 08/07/16 08/07/16 18:59 06:59 18:59 Intake Total 150 825 100 Output Total 1000 1100 300 Balance -850 -275 -200 Weight 89 kg Intake: IV 150 825 Sodium Chloride 0.9% 1, 825 000 ml @ 75 mls/hr IV . [id number] [facility] Rx#:[id number] Oral 100 Output: Urine 1000 1100 300 Other: Voiding Method Indwelling Catheter Indwelling Catheter Indwelling Catheter # Bowel Movements 0 - Exam PHYSICAL EXAMINATION: HEENT: Head is atraumatic, normocephalic. Pupils equal, round. Neck is supple. There is no elevated jugular venous pressure. HEART EXAMINATION: Heart sounds regular, S1 and S2 normal. No murmur or gallop heard. CHEST EXAMINATION: Lungs reveal crackles to bilateral bases. No chest wall tenderness is noted on palpation or with deep breathing. ABDOMEN: Soft, nontender. Bowel sounds are heard. No organomegaly noted. EXTREMITIES: 1+ peripheral pulses with no evidence of peripheral edema and no calf tenderness noted. NEUROLOGIC patient is awake, drowsy and oriented to person and place. . - Labs CBC & Chem 7: 08/07/16 06:53 08/07/16 06:53 Labs: Abnormal Lab Results - Last 24 Hours (Table) 08/07/16 08/07/16 08/07/16 Range/Units 03:00 06:53 06:53 Plt Count 74 L (150-450) k/uL BUN 23 H (9-20) mg/dL Glucose 104 H (74-99) mg/dL Total Bilirubin 1.6 H (0.2-1.3) mg/dL Total Protein 6.0 L (6.3-8.2) g/dL Albumin 3.0 L (3.5-5.0) g/dL Urine Protein 1+ H (Negative) Urine Blood Large H (Negative) Ur Leukocyte Esterase Small H (Negative) Urine RBC >182 H (0-5) /hpf Urine WBC 70 H (0-5) /hpf Urine Bacteria Rare H (None) /hpf Hyaline Casts 9 H (0-2) /lpf Urine Mucus Moderate H (None) /hpf Assessment and Plan Plan: Assessment and plan #1 inferior lateral myocardial infarction, unsuccessful attempt at cardiac catheterization #2 hip fracture #3 venous congestion on chest x-ray with crackles to bilateral From cardiac standpoint, we will decrease IV fluids to KVO. Give one dose of Lasix 20 mg IV push 1 now. We'll continue medical management at this time. Likely reattempt cardiac catheterization soon. Further recommendations to follow. MOVIE PROJECTIONIST note has been reviewed, I agree with a documented findings and plan of care. Patient was seen and examined.
--- NOTE | 2016-08-07 17:10 | P.PN ---
Subjective 85-year-old gentleman those initially seen at [facility] after sustaining a fall and having a right femoral neck fracture. Patient stated he is had multiple falls in the recent times. Patient has been on anticoagulant for her atrial fibrillation and maintained on sotalol. Patient does have a history of CAD status post CABG. In the initial evaluation patient was noted to have an elevated troponin with EKG consistent with the Q waves in the lateral inferior leads. Patient was hence transferred to [facility] for Jorge catheterization. Today on evaluation patient appears to be slightly confused states to have pain in his hip. Patient has had any chest pain, difficult in breathing, nausea, vomiting. Patient apparently had an episode of agitation where he pulled his Wilson catheter and thereafter noting blood in his urine. Patient's heparin was held. 08/07/16 Pt is awake answering questions appropriately. Continues to have pain in his right hip Cath via femoral route was unsuccessful Denies CONCHA, NATALIE. Objective - Vital Signs Vital signs: Vital Signs Temp 98.7 F 08/07/16 08:00 Pulse 58 L 08/07/16 12:00 Resp 18 08/07/16 04:00 BP 100/54 08/07/16 12:00 Pulse Ox 96 08/07/16 12:00 Intake & Output 08/06/16 08/07/16 08/07/16 18:59 06:59 18:59 Intake Total 150 825 100 Output Total 1000 1100 300 Balance -850 -275 -200 Weight 89 kg Intake: IV 150 825 Sodium Chloride 0.9% 1, 825 000 ml @ 75 mls/hr IV . [id number] [facility] Rx#:[id number] Oral 100 Output: Urine 1000 1100 300 Other: Voiding Method Indwelling Catheter Indwelling Catheter Indwelling Catheter # Bowel Movements 0 - Constitutional General appearance: Present: average body habitus, mild distress - EENT Eyes: Present: PERRLA - Neck Neck: Present: normal ROM - Respiratory Respiratory: bilateral: rales (bases) - Cardiovascular Rhythm: irregularly irregular - Gastrointestinal General gastrointestinal: Present: normal bowel sounds, soft. Absent: organomegaly, tenderness - Genitourinary Genitourinary Comment(s): wilson in place.No blood noted. - Neurologic Neurologic: Present: CNII-XII intact. Absent: focal deficits - Psychiatric Psychiatric: Present: A&O x's 3, appropriate affect - Labs CBC & Chem 7: 08/07/16 06:53 08/07/16 06:53 Labs: Abnormal Lab Results - Last 24 Hours (Table) 08/07/16 08/07/16 08/07/16 Range/Units 03:00 06:53 06:53 Plt Count 74 L (150-450) k/uL BUN 23 H (9-20) mg/dL Glucose 104 H (74-99) mg/dL Total Bilirubin 1.6 H (0.2-1.3) mg/dL Total Protein 6.0 L (6.3-8.2) g/dL Albumin 3.0 L (3.5-5.0) g/dL Urine Protein 1+ H (Negative) Urine Blood Large H (Negative) Ur Leukocyte Esterase Small H (Negative) Urine RBC >182 H (0-5) /hpf Urine WBC 70 H (0-5) /hpf Urine Bacteria Rare H (None) /hpf Hyaline Casts 9 H (0-2) /lpf Urine Mucus Moderate H (None) /hpf Assessment and Plan Plan: #1 NSTEMI #2 right femoral neck fracture #3 osteoporosis and the diagnosis from the recent fracture #4 history of CAD status post CABG #5 aortic aneurysm repair #6 history of atrial fibrillation on anticoagulation #7 acute toxic encephalopathy, improving #8 hematuria due to trauma Plan repeat cardiac cath on tuesday?potentially via radial approach, Iliac stenosis. start fentanyl patch. Hold off on hip surgery till cardiology clearance.
[2016-08-07] MEDS: SODIUM CHLORIDE 0.9% 1,000 ML IV SCH ×2 (17:53→19:49)
[2016-08-08 07:21] LABS: ALT 32 U/L (21-72); AST 56 U/L (17-59); Alkaline Phosphatase 59 U/L (38-126); Anion Gap 7 mmol/L; Blood Urea Nitrogen 28 mg/dL (9-20); Calcium 8.7 mg/dL (8.4-10.2); Carbon Dioxide 30 mmol/L (22-30); Chloride 104 mmol/L (98-107); Glucose 111 mg/dL (74-99); Magnesium 1.7 mg/dL (1.6-2.3); Non-African American GFR(MDRD) >60 (>60 ml/min/1.73 sqM); Potassium 4.1 mmol/L (3.5-5.1); Sodium 141 mmol/L (137-145); Total Bilirubin 1.7 mg/dL (0.2-1.3); Total Protein 5.7 g/dL (6.3-8.2)
--- NOTE | 2016-08-08 07:47 | XR ---
EXAMINATION TYPE: XR chest 1V portable DATE OF EXAM: 08/08/2016 7:14 AM COMPARISON: 08/07/2016 HISTORY: Difficulty breathing TECHNIQUE: Single frontal view of the chest is obtained. FINDINGS: Persistent predominantly interstitial process greater on the left with tiny effusion or pl eural thickening. Postsurgical change and cardiomegaly noted. Biapical pleural thickening. Could not exclude a tiny apical granuloma. IMPRESSION: 1. Persistent interstitial pattern correlate for interstitial pneumonitis or venous congestion. Under lying pulmonary fibrosis in the differential.
[2016-08-08] MEDS: ASPIRIN 81 MG CHEW PO SCH (08:33)
[2016-08-08] MEDS: SOTALOL 80 MG TAB PO SCH ×2 (08:34→20:53)
[2016-08-08] MEDS: METOPROLOL TARTRATE 25 MG TAB PO SCH ×2 (08:34→20:54)
[2016-08-08] MEDS: CALCITONIN 200 USP/1 NASAL SPRAY 3.7ML BTL NASAL SCH (08:34)
[2016-08-08] MEDS: ATORVASTATIN 40 MG TAB PO SCH (08:34)
[2016-08-08] MEDS: HYDROcodone/APAP 5-325MG 1 EACH TAB PO PRN (08:34)
[2016-08-08 08:37] LABS: CH 35.2; CHCM 35.3; HCT 43.4 % (39.0-53.0); HGB 15.1 gm/dL (13.0-17.5); MCH 35.1 pg (25.0-35.0); MCHC 34.8 g/dL (31.0-37.0); MCV 100.9 fL (80.0-100.0); RBC 4.31 m/uL (4.30-5.90); WBC 8.6 k/uL (3.8-10.6); WBC (Perox) 8.43
[2016-08-08 08:38] LABS: HDW 3.71; Macrocytosis Slight; Mean Platelet Volume 9.3; RDW 15.3 % (11.5-15.5)
[2016-08-08 08:39] LABS: Basophils % (A) 0 %; Eosinophils # (A) 0.6 k/uL (0-0.7); Eosinophils % (A) 8 %; Luc % (Auto) 2; Lymphocytes # (A) 1.1 k/uL (1.0-4.8); Lymphocytes % (A) 13 %; Monocytes # (A) 0.4 k/uL (0-1.0); Monocytes % (A) 5 %; Neutrophils # (A) 6.2 k/uL (1.3-7.7); Neutrophils % (A) 73 %; Poikilocytosis Slight
[2016-08-08 08:40] LABS: Luc # (Auto) 0.13
[2016-08-08] MEDS ORDERED: FUROSEMIDE 10 MG/ML 4 ML VIAL IV STA (09:16)
--- NOTE | 2016-08-08 10:02 | P.PN ---
Subjective Principal diagnosis: Right femoral neck fracture Patient is an 85-year-old male seen at bedside today. He is pending clearance to undergo right hip hemiarthroplasty for his right femoral neck fracture. He continues to have right hip pain at the fracture site as expected. He denies numbness or tingling. He denies calf pain. He denies any new complaints. Review of systems is negative for fever, chills, chest pain, shortness breath, nausea, vomiting, dizziness, slurred speech or other. Objective - Vital Signs Vital signs: Vital Signs Temp 96.9 F L 08/08/16 08:00 Pulse 82 08/08/16 08:00 Resp 18 08/08/16 04:00 BP 104/61 08/08/16 08:00 Pulse Ox 91 L 08/08/16 08:00 Intake & Output 08/07/16 08/08/16 08/08/16 17:59 06:59 18:59 Intake Total 120 Output Total Balance 120 Weight Intake: IV Sodium Chloride 0.9% 1, 000 ml @ 20 mls/hr IV . Q24H [facility] Rx#:[id number] Oral 120 Output: Urine Other: Voiding Method Indwelling Catheter # Bowel Movements - Exam Inspection of the right lower extremity shows a shortened externally rotated leg. There are no open wounds or lacerations. Sensation to light touch is intact throughout the right lower extremity. He has active motor with dorsiflexion and plantarflexion of the ankle, foot and toes. 1+ dorsalis pedis pulses present and less than 2 second cap refill is present. Calf is soft and nontender. - Constitutional General appearance: Present: no acute distress - Psychiatric Psychiatric: Present: A&O x's 3, appropriate affect, intact judgment & insight - Labs CBC & Chem 7: 08/08/16 06:15 08/08/16 06:15 Labs: Abnormal Lab Results - Last 24 Hours (Table) 08/08/16 08/08/16 Range/Units 06:15 06:15 MCV 100.9 H (80.0-100.0) fL MCH 35.1 H (25.0-35.0) pg Plt Count 73 L (150-450) k/uL BUN 28 H (9-20) mg/dL Glucose 111 H (74-99) mg/dL Total Bilirubin 1.7 H (0.2-1.3) mg/dL Total Protein 5.7 L (6.3-8.2) g/dL Albumin 2.8 L (3.5-5.0) g/dL Assessment and Plan (1) Closed right hip fracture Narrative/Plan: He'll continue with routine orthopedic protocol including pain management, nonweightbearing, neurovascular checks, DVT prophylaxis per cardiology and internal medicine, and medical management. Once he is cleared by cardiology and internal medicine plan will be to proceed with surgical intervention including a right hip hemiarthroplasty per Dr. Orellana. Status: Acute Time with Patient: Less than 30
[2016-08-08] MEDS: SODIUM CHLORIDE 0.9% 1,000 ML IV SCH (12:19)
--- NOTE | 2016-08-08 17:51 | P.PN ---
Subjective 85-year-old gentleman those initially seen at [facility] after sustaining a fall and having a right femoral neck fracture. Patient stated he is had multiple falls in the recent times. Patient has been on anticoagulant for her atrial fibrillation and maintained on sotalol. Patient does have a history of CAD status post CABG. In the initial evaluation patient was noted to have an elevated troponin with EKG consistent with the Q waves in the lateral inferior leads. Patient was hence transferred to [facility] for Jorge catheterization. Today on evaluation patient appears to be slightly confused states to have pain in his hip. Patient has had any chest pain, difficult in breathing, nausea, vomiting. Patient apparently had an episode of agitation where he pulled his [place] catheter and thereafter noting blood in his urine. Patient's heparin was held. 08/07/16 Pt is awake answering questions appropriately. Continues to have pain in his right hip Cath via femoral route was unsuccessful Denies CP, NATALIE. 08/08/16 Is more awake today Continues to have pain in his left hip No fevers, chills nausea, vomiting reported. Objective - Vital Signs Vital signs: Vital Signs Temp 97.0 F L 08/08/16 16:00 Pulse 64 08/08/16 16:00 Resp 18 08/08/16 04:00 BP 129/62 08/08/16 16:00 Pulse Ox 98 08/08/16 16:00 Intake & Output 08/07/16 08/08/16 08/08/16 17:59 06:59 18:59 Intake Total 380 Output Total 850 Balance -470 Weight Intake: IV 160 Sodium Chloride 0.9% 1, 160 000 ml @ 20 mls/hr IV . Q24H [facility] Rx#:[id number] Oral 220 Output: Urine 850 Other: Voiding Method Indwelling Catheter # Voids 0 # Bowel Movements 0 - Constitutional General appearance: Present: average body habitus, no acute distress - EENT Eyes: Present: PERRLA - Respiratory Respiratory: bilateral: rhonchi (transmitted from hypopharynx.) - Cardiovascular Rhythm: irregularly irregular Heart sounds: normal: S1, S2 - Gastrointestinal General gastrointestinal: Present: normal bowel sounds, soft. Absent: organomegaly, tenderness - Integumentary Integumentary: Present: normal - Neurologic Neurologic: Present: CNII-XII intact. Absent: focal deficits - Musculoskeletal Musculoskeletal Comment(s): right hip tenderness anteriorly. ROM worsens pain. - Psychiatric Psychiatric: Present: A&O x's 3, appropriate affect - Labs CBC & Chem 7: 08/08/16 06:15 08/08/16 06:15 Labs: Abnormal Lab Results - Last 24 Hours (Table) 08/08/16 08/08/16 Range/Units 06:15 06:15 MCV 100.9 H (80.0-100.0) fL MCH 35.1 H (25.0-35.0) pg Plt Count 73 L (150-450) k/uL BUN 28 H (9-20) mg/dL Glucose 111 H (74-99) mg/dL Total Bilirubin 1.7 H (0.2-1.3) mg/dL Total Protein 5.7 L (6.3-8.2) g/dL Albumin 2.8 L (3.5-5.0) g/dL Assessment and Plan Plan: #1 NSTEMI #2 right femoral neck fracture #3 osteoporosis and the diagnosis from the recent fracture #4 history of CAD status post CABG #5 aortic aneurysm repair #6 history of atrial fibrillation on anticoagulation #7 acute toxic encephalopathy, improving #8 hematuria due to trauma Plan repeat cardiac cath on tuesday?potentially via radial approach, Iliac stenosis. start fentanyl patch. Hold off on hip surgery till cardiology clearance. Judicious use of narcotics Restart lovenox for VTE, a fib.
--- NOTE | 2016-08-08 19:20 | P.PN ---
Subjective This patient is admitted with hip fracture and non-Q-wave myocardial infarction. And is feeling better but he is slightly short of breath. Since the chest x-ray done today is suggestive of mild congestive heart failure Objective - Vital Signs Vital signs: Vital Signs Temp 97.0 F L 08/08/16 16:00 Pulse 64 08/08/16 16:00 Resp 18 08/08/16 04:00 BP 129/62 08/08/16 16:00 Pulse Ox 98 08/08/16 16:00 Intake & Output 08/08/16 08/08/16 08/09/16 06:59 18:59 06:59 Intake Total 480 Output Total 850 Balance -370 Weight Intake: IV 160 Sodium Chloride 0.9% 1, 160 000 ml @ 20 mls/hr IV . Q24H [facility] Rx#:[id number] Oral 320 Output: Urine 850 Other: Voiding Method Indwelling Catheter # Voids 0 # Bowel Movements 0 - Exam Patient's vital signs are reviewed. Patient is in mild respiratory distress. First and second heart sounds are normal. Lungs reveal bilateral scattered wheezes. - Labs CBC & Chem 7: 08/08/16 06:15 08/08/16 06:15 Labs: Abnormal Lab Results - Last 24 Hours (Table) 08/08/16 08/08/16 Range/Units 06:15 06:15 MCV 100.9 H (80.0-100.0) fL MCH 35.1 H (25.0-35.0) pg Plt Count 73 L (150-450) k/uL BUN 28 H (9-20) mg/dL Glucose 111 H (74-99) mg/dL Total Bilirubin 1.7 H (0.2-1.3) mg/dL Total Protein 5.7 L (6.3-8.2) g/dL Albumin 2.8 L (3.5-5.0) g/dL Assessment and Plan Plan: I will give patient one dose of IV Lasix 40 mg daily. The patient is doing better we will consider cardiac catheterization tomorrow.
[2016-08-08] MEDS: HEPARIN SODIUM,PORCINE/D5W PMX 25,000 UNIT in DEXTROSE/WATER 1 500ML.BAG IV SCH (20:39)
[2016-08-09 03:05] LABS: Basophils % (A) 0 %; CH 35.3; CHCM 35.2; Eosinophils # (A) 0.6 k/uL (0-0.7); Eosinophils % (A) 7 %; HCT 45.4 % (39.0-53.0); HGB 15.1 gm/dL (13.0-17.5); Luc # (Auto) 0.12; Luc % (Auto) 1; Lymphocytes # (A) 1.2 k/uL (1.0-4.8); Lymphocytes % (A) 14 %; MCH 33.7 pg (25.0-35.0); MCHC 33.3 g/dL (31.0-37.0); MCV 101.3 fL (80.0-100.0); Macrocytosis Slight; Mean Platelet Volume 7.4; Monocytes # (A) 0.4 k/uL (0-1.0); Monocytes % (A) 5 %; Neutrophils # (A) 6.4 k/uL (1.3-7.7); Neutrophils % (A) 73 %; Poikilocytosis Slight; RBC 4.48 m/uL (4.30-5.90); RDW 15.1 % (11.5-15.5); WBC 8.7 k/uL (3.8-10.6); WBC (Perox) 9.34
[2016-08-09 03:11] LABS: ALT 42 U/L (21-72); AST 69 U/L (17-59); Alkaline Phosphatase 63 U/L (38-126); Anion Gap 11 mmol/L; Blood Urea Nitrogen 32 mg/dL (9-20); Carbon Dioxide 32 mmol/L (22-30); Chloride 101 mmol/L (98-107); Glucose 126 mg/dL (74-99); Non-African American GFR(MDRD) >60 (>60 ml/min/1.73 sqM); Sodium 144 mmol/L (137-145); Total Bilirubin 1.5 mg/dL (0.2-1.3); Total Protein 6.1 g/dL (6.3-8.2)
--- NOTE | 2016-08-09 07:47 | XR ---
EXAMINATION TYPE: XR chest 2V DATE OF EXAM: 08/09/2016 7:22 AM COMPARISON: Prior chest x-ray 08 August 2016 HISTORY: Pneumonia, congestive heart failure TECHNIQUE: Frontal and lateral views of the chest are obtained. FINDINGS: Patient is post median sternotomy. There is rotation. No evident pneumothorax or sizable e ffusion. Interstitium is mildly increased. Cardiomediastinal silhouette, pulmonary vascularity and hi la show no significant interval change. There may be some pleural calcification. Lung volumes are low . There are overlying cardiac leads. Surgical clips present in the left neck. IMPRESSION: No significant interval change is evident. Postop changes. Expiratory rotated exam. Inte rstitial changes are stable. There may be some pleural calcification, high-resolution chest CT may be of benefit.
[2016-08-09] MEDS ORDERED: ASPIRIN 325 MG TAB PO STA (08:13)
[2016-08-09] MEDS ORDERED: NITROGLYCERIN SL TABS 0.4 MG TAB SUBLINGUAL PRN (08:13)
[2016-08-09] MEDS ORDERED: ATORVASTATIN 80 MG TAB PO STA (08:13)
[2016-08-09] MEDS ORDERED: ALPRAZolam 0.25 MG TAB PO PRN (08:13)
[2016-08-09] MEDS ORDERED: ALPRAZolam 0.5 MG TAB PO PRN (08:13)
[2016-08-09] MEDS: SODIUM CHLORIDE 0.9% 1,000 ML in EMPTY BAG 1 BAG IV ONE ×2 (08:29→08:31)
[2016-08-09] MEDS: CALCITONIN 200 USP/1 NASAL SPRAY 3.7ML BTL NASAL SCH (08:30)
[2016-08-09] MEDS: SOTALOL 80 MG TAB PO SCH ×2 (08:30→22:07)
[2016-08-09] MEDS: METOPROLOL TARTRATE 25 MG TAB PO SCH ×2 (08:30→22:07)
[2016-08-09] MEDS: MAGNESIUM SULFATE-D5W PMX 1 GM in DEXTROSE/WATER 1 100ML.BAG IVPB SCH ×2 (09:35→11:49)
--- NOTE | 2016-08-09 09:57 | P.PN ---
Subjective Principal diagnosis: Right femoral neck fracture Patient is an 85-year-old male seen at bedside today. He is planned to have a heart catheterization today. He continues to have right hip pain at the fracture site as expected. He denies numbness or tingling. He denies calf pain. He denies any new complaints. Review of systems is negative for fever, chills, chest pain, shortness breath, nausea, vomiting, dizziness, slurred speech or other. Objective - Vital Signs Vital signs: Vital Signs Temp 97 F L 08/09/16 08:15 Pulse 79 08/09/16 08:15 Resp 17 08/09/16 08:15 BP 141/65 08/09/16 08:15 Pulse Ox 95 08/09/16 08:15 Intake & Output 08/08/16 08/09/16 08/09/16 18:59 06:59 18:59 Intake Total 480 720 Output Total 850 500 Balance -370 220 Weight 84.5 kg Intake: IV 160 160 Sodium Chloride 0.9% 1, 160 160 000 ml @ 20 mls/hr IV . Q24H [facility] Rx#:[id number] Intake, IV Titration 60 Amount Heparin Sodium,Porcine/ 60 D5w Pmx 25,000 unit In Dextrose/Water 1 500ml. bag @ 11.236 UNITS/KG/HR 20 mls/hr IV .Q24H [facility] Rx #:[id number] Oral 320 500 Output: Urine 850 500 Other: Voiding Method Indwelling Catheter Indwelling Catheter Indwelling Catheter # Voids 0 # Bowel Movements 0 - Exam Inspection of the right lower extremity shows a shortened externally rotated leg. There are no open wounds or lacerations. Sensation to light touch is intact throughout the right lower extremity. He has active motor with dorsiflexion and plantarflexion of the ankle, foot and toes. 1+ dorsalis pedis pulses present and less than 2 second cap refill is present. Calf is soft and nontender. - Constitutional General appearance: Present: no acute distress - Psychiatric Psychiatric: Present: A&O x's 3, appropriate affect, intact judgment & insight - Labs CBC & Chem 7: 08/09/16 02:43 08/09/16 02:43 Labs: Abnormal Lab Results - Last 24 Hours (Table) 08/09/16 08/09/16 08/09/16 Range/Units 02:43 02:43 02:43 MCV 101.3 H (80.0-100.0) fL Plt Count 87 L (150-450) k/uL APTT 30.9 H (22.0-30.0) sec Carbon Dioxide 32 H (22-30) mmol/L BUN 32 H (9-20) mg/dL Glucose 126 H (74-99) mg/dL Total Bilirubin 1.5 H (0.2-1.3) mg/dL AST 69 H (17-59) U/L Total Protein 6.1 L (6.3-8.2) g/dL Albumin 3.1 L (3.5-5.0) g/dL Assessment and Plan (1) Closed right hip fracture Narrative/Plan: He is schedule to ave heart catheter today. He'll continue with routine orthopedic protocol including pain management, nonweightbearing, neurovascular checks, DVT prophylaxis per cardiology and internal medicine, and medical management. Once he is cleared by cardiology and internal medicine plan will be to proceed with surgical intervention including a right hip hemiarthroplasty per Dr. Orellana. Status: Acute Time with Patient: Less than 30
[2016-08-09] MEDS ORDERED: HEPARIN SODIUM,PORCINE 5,000 UNIT/ML 1 ML VIAL IV STA (11:52)
--- NOTE | 2016-08-09 12:19 | CDI ---
In responding to this query, please exercise your independent professional judgment. The [facility] Coding Staff and Clinical Documentation Specialists appreciate your assistance in clarifying documentation, maintaining compliance with coding guidelines, accurately documenting patients condition and capturing severity of illness. The fact that a question is asked does not imply that any particular answer is desired or expected. Communication forms are a method of clarifying documentation and are not made part of the Legal Health Record. Thank you in advance for your clarification. Last Revision, July 2015 Nish Dhaliwal [address] [place] [address] Documentation Clarification Form Date: 08/09/2016 11:33:00 AM From: Almaz Oconnor Admit Date: 08/05/2016 3:16:00 PM Patient Name: Rambo Avalos Visit Number: [id number] Discharge Date: Dr. Desmond Srivastava/Tami Sprague DNP CHF is documented in your progress notes on 08/08/16. History/Risk Factors: Atrial fibrillation, Asthma, Coronary artery disease, HI, Prostate disorder Clinical Indicators: Admitted with hip fracture and non non-Q-wave myocardial infarction. He is slightly short of breath VS/Pulse OX: 129/62 64 18 97.0 98 % BNP: 1470 Echocardiogram Results: Left ventricular systolic function is moderately impaired with, an EF between 35-40 % Chest X- ray: 08/08/16: Persistent interstitial pattern correlate for interstitial pneumonitis or venous congestion Treatment: ASA PO Lasix IV (change to po) Monitor O2 Sat's Consults: Cardiology: chest x-ray done today is suggestive of mild congestive heart failure In your professional opinion, can you please clarify the acuity and type of CHF if known? 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 Include clinical findings that support your diagnosis. FYI: Press F11 to launch patient chart. Place X here if this finding has no clinical significance, is not applicable or if you are not able to provide any additional documentation. JONATHAN
[2016-08-09] MEDS: HYDROcodone/APAP 5-325MG 1 EACH TAB PO PRN ×2 (14:26→18:16)
--- NOTE | 2016-08-09 15:26 | P.PN ---
Subjective This is an 85-year-old gentleman admitted to the hospital with a fracture and non-Q-wave myocardial infarction. Patient underwent an attempted cardiac catheterization, guidewire was unable to be advanced. Patient was originally scheduled to yesterday to be taken back to the cardiac catheterization lab because of shortness of breath this was deferred. Patient was given IV Lasix and today overall is feeling much better. Blood pressure today 144/70 with a heart rate in the 70s. Potassium 4.0, BUN 32, creatinine 0.8. Patient will be scheduled to undergo cardiac catheterization tomorrow with Dr. Bahena. Objective - Vital Signs Vital signs: Vital Signs Temp 97 F L 08/09/16 08:15 Pulse 74 08/09/16 11:53 Resp 17 08/09/16 11:53 BP 144/70 08/09/16 11:53 Pulse Ox 92 L 08/09/16 11:53 Intake & Output 08/08/16 08/09/16 08/09/16 18:59 06:59 18:59 Intake Total 480 720 402.667 Output Total 850 500 Balance -370 220 402.667 Weight 84.5 kg Intake: IV 160 160 Sodium Chloride 0.9% 1, 160 160 000 ml @ 20 mls/hr IV . Q24H [facility] Rx#:[id number] Intake, IV Titration 60 302.667 Amount Heparin Sodium,Porcine/ 60 302.667 D5w Pmx 25,000 unit In Dextrose/Water 1 500ml. bag @ 11.236 UNITS/KG/HR 20 mls/hr IV .Q24H [facility] Rx #:[id number] Oral 320 500 100 Output: Urine 850 500 Other: Voiding Method Indwelling Catheter Indwelling Catheter Indwelling Catheter # Voids 0 # Bowel Movements 0 - Exam PHYSICAL EXAMINATION: HEENT: Head is atraumatic, normocephalic. Pupils equal, round. Neck is supple. There is no elevated jugular venous pressure. HEART EXAMINATION: S1 and S2 systolic murmur heard. CHEST EXAMINATION: Lungs are clear with fine crackles to bilateral bases. ABDOMEN: Soft, nontender. Bowel sounds are heard. No organomegaly noted. EXTREMITIES: 2+ peripheral pulses with no evidence of peripheral edema and no calf tenderness noted. NEUROLOGIC patient is awake, alert and oriented -2. . - Labs CBC & Chem 7: 08/09/16 02:43 08/09/16 02:43 Labs: Abnormal Lab Results - Last 24 Hours (Table) 08/09/16 08/09/16 08/09/16 Range/Units 02:43 02:43 02:43 MCV 101.3 H (80.0-100.0) fL Plt Count 87 L (150-450) k/uL APTT 30.9 H (22.0-30.0) sec Carbon Dioxide 32 H (22-30) mmol/L BUN 32 H (9-20) mg/dL Glucose 126 H (74-99) mg/dL Total Bilirubin 1.5 H (0.2-1.3) mg/dL AST 69 H (17-59) U/L Total Protein 6.1 L (6.3-8.2) g/dL Albumin 3.1 L (3.5-5.0) g/dL Assessment and Plan (1) NSTEMI (non-ST elevated myocardial infarction) Status: Acute (2) Hip fracture Status: Acute (3) Hx of CABG Status: Acute (4) AAA (abdominal aortic aneurysm) Status: Acute (5) Hematuria Status: Acute (6) Hematuria Status: Acute Plan: From cardiology's perspective, patient will proceed with cardiac catheterization tomorrow by Dr. Bahena. Risks and benefits of the procedure were explained to the patient as well as his family. DNP note has been reviewed, I agree with a documented findings and plan of care. Patient was seen and examined.
[2016-08-09] MEDS: SODIUM CHLORIDE 0.9% 1,000 ML IV SCH (15:42)
[2016-08-09] MEDS: HEPARIN SODIUM,PORCINE/D5W PMX 25,000 UNIT in DEXTROSE/WATER 1 500ML.BAG IV SCH (15:54)
--- NOTE | 2016-08-09 17:09 | P.PN ---
Subjective 85-year-old gentleman those initially seen at [facility] after sustaining a fall and having a right femoral neck fracture. Patient stated he is had multiple falls in the recent times. Patient has been on anticoagulant for her atrial fibrillation and maintained on sotalol. Patient does have a history of CAD status post CABG. In the initial evaluation patient was noted to have an elevated troponin with EKG consistent with the Q waves in the lateral inferior leads. Patient was hence transferred to [facility] for Jorge catheterization. Today on evaluation patient appears to be slightly confused states to have pain in his hip. Patient has had any chest pain, difficult in breathing, nausea, vomiting. Patient apparently had an episode of agitation where he pulled his [place] catheter and thereafter noting blood in his urine. Patient's heparin was held. 08/07/16 Pt is awake answering questions appropriately. Continues to have pain in his right hip Cath via femoral route was unsuccessful Denies CP, NATALIE. 08/08/16 Is more awake today Continues to have pain in his left hip No fevers, chills nausea, vomiting reported. 08/09/16 Continues to have pain in his right hip Objective - Vital Signs Vital signs: Vital Signs Temp 97.3 F L 08/09/16 15:46 Pulse 81 08/09/16 15:46 Resp 17 08/09/16 15:46 BP 120/64 08/09/16 15:46 Pulse Ox 92 L 08/09/16 15:46 Intake & Output 08/08/16 08/09/16 08/09/16 18:59 06:59 18:59 Intake Total 480 720 706.983 Output Total 850 500 Balance -370 220 706.983 Weight 84.5 kg Intake: IV 160 160 Sodium Chloride 0.9% 1, 160 160 000 ml @ 20 mls/hr IV . Q24H [facility] Rx#:[id number] Intake, IV Titration 60 606.983 Amount Heparin Sodium,Porcine/ 60 406.983 D5w Pmx 25,000 unit In Dextrose/Water 1 500ml. bag @ 11.236 UNITS/KG/HR 20 mls/hr IV .Q24H [facility] Rx #:[id number] Magnesium Sulfate-D5w Pmx 200 1 gm In Dextrose/Water 1 100ml.bag @ 100 mls/hr IVPB Q1H [facility] Rx#: [id number] Oral 320 500 100 Output: Urine 850 500 Other: Voiding Method Indwelling Catheter Indwelling Catheter Indwelling Catheter # Voids 0 # Bowel Movements 0 - Constitutional General appearance: Present: mild distress - EENT Eyes: Present: PERRLA - Respiratory Respiratory: bilateral: CTA, negative: rales, rhonchi, wheezing - Cardiovascular Rhythm: irregularly irregular Heart sounds: normal: S1 - Gastrointestinal General gastrointestinal: Present: normal bowel sounds, soft. Absent: organomegaly, tenderness - Integumentary Integumentary: Present: normal - Neurologic Neurologic: Present: CNII-XII intact. Absent: focal deficits - Musculoskeletal Musculoskeletal: Present: generalized weakness - Psychiatric Psychiatric: Present: A&O x's 3 - Additional findings Additional findings: Right hip is tender to palpation - Labs CBC & Chem 7: 08/09/16 02:43 08/09/16 02:43 Labs: Abnormal Lab Results - Last 24 Hours (Table) 08/09/16 08/09/16 08/09/16 Range/Units 02:43 02:43 02:43 MCV 101.3 H (80.0-100.0) fL Plt Count 87 L (150-450) k/uL APTT 30.9 H (22.0-30.0) sec Carbon Dioxide 32 H (22-30) mmol/L BUN 32 H (9-20) mg/dL Glucose 126 H (74-99) mg/dL Total Bilirubin 1.5 H (0.2-1.3) mg/dL AST 69 H (17-59) U/L Total Protein 6.1 L (6.3-8.2) g/dL Albumin 3.1 L (3.5-5.0) g/dL Assessment and Plan Plan: #1 NSTEMI #2 right femoral neck fracture #3 osteoporosis and the diagnosis from the recent fracture #4 history of CAD status post CABG #5 aortic aneurysm repair #6 history of atrial fibrillation on anticoagulation #7 acute toxic encephalopathy, improving #8 hematuria due to trauma, moniter urine. Plan repeat cxr jessy repeat cath jessy. start fentanyl patch. Hold off on hip surgery till cardiology clearance. Judicious use of narcotics Restart iv heaprin for VTE, a fib.
[2016-08-09] MEDS: FUROSEMIDE 20 MG TAB PO SCH (18:16)
[2016-08-10 03:42] LABS: Basophils % (A) 0 %; CH 35.4; CHCM 35.5; Eosinophils # (A) 0.2 k/uL (0-0.7); Eosinophils % (A) 2 %; HCT 42.2 % (39.0-53.0); HDW 3.71; HGB 14.7 gm/dL (13.0-17.5); Luc # (Auto) 0.16; Luc % (Auto) 2; Lymphocytes # (A) 1.3 k/uL (1.0-4.8); Lymphocytes % (A) 17 %; MCHC 34.8 g/dL (31.0-37.0); MCV 100.7 fL (80.0-100.0); Macrocytosis Slight; Mean Platelet Volume 8.6; Monocytes # (A) 0.4 k/uL (0-1.0); Monocytes % (A) 5 %; Neutrophils # (A) 5.8 k/uL (1.3-7.7); Neutrophils % (A) 74 %; Poikilocytosis Slight; RBC 4.19 m/uL (4.30-5.90); RDW 15.3 % (11.5-15.5); WBC 7.9 k/uL (3.8-10.6); WBC (Perox) 8.17
[2016-08-10 04:16] LABS: ALT 48 U/L (21-72); AST 58 U/L (17-59); Alkaline Phosphatase 61 U/L (38-126); Anion Gap 9 mmol/L; Blood Urea Nitrogen 29 mg/dL (9-20); Calcium 8.9 mg/dL (8.4-10.2); Carbon Dioxide 30 mmol/L (22-30); Chloride 101 mmol/L (98-107); Glucose 127 mg/dL (74-99); Non-African American GFR(MDRD) >60 (>60 ml/min/1.73 sqM); Sodium 140 mmol/L (137-145); Total Bilirubin 1.7 mg/dL (0.2-1.3); Total Protein 5.8 g/dL (6.3-8.2)
[2016-08-10] MEDS: HEPARIN SODIUM,PORCINE/D5W PMX 25,000 UNIT in DEXTROSE/WATER 1 500ML.BAG IV SCH (05:01)
[2016-08-10] MEDS: ASPIRIN 81 MG CHEW PO SCH (06:05)
[2016-08-10] MEDS: METOPROLOL TARTRATE 25 MG TAB PO SCH ×2 (06:05→21:14)
[2016-08-10] MEDS: SOTALOL 80 MG TAB PO SCH ×2 (06:05→21:14)
[2016-08-10] MEDS: ATORVASTATIN 40 MG TAB PO SCH (06:05)
[2016-08-10] MEDS: CALCITONIN 200 USP/1 NASAL SPRAY 3.7ML BTL NASAL SCH (06:05)
[2016-08-10] MEDS: FUROSEMIDE 20 MG TAB PO SCH (06:05)
[2016-08-10] MEDS ORDERED: LIDOCAINE 2% INJ 20 MG/ML SQ ONE (07:56)
[2016-08-10] MEDS ORDERED: fentaNYL (PF) 50 MCG/ML 2 ML AMP IV ONE (07:57)
[2016-08-10] MEDS ORDERED: IV FLUID CONTINUATION 1,000 ML IV ONE (07:57)
[2016-08-10] MEDS ORDERED: BIVALIRUDIN BOLUS 250 MG/50 ML IV ONE (08:29)
[2016-08-10] MEDS ORDERED: BIVALIRUDIN 250 MG in SODIUM CHLORIDE 0.9% 50 ML IV ONE (08:29)
[2016-08-10] MEDS: niCARdipine Syringe (1,000 mcg/10 mL) INTRACORON ONE ×2 (08:33→08:52)
[2016-08-10] MEDS ORDERED: CLOPIDOGREL 75 MG TAB PO ONE (08:49)
[2016-08-10] MEDS ORDERED: IOHEXOL 350 MG/ML 100 ML BOTTLE INTRATHECA ONE (08:53)
[2016-08-10] MEDS ORDERED: RX INFO: IV CONTRAST WAS GIVEN 1 EACH MISC MISCELLANE PRN (09:06)
[2016-08-10] MEDS ORDERED: MAG HYDROX/AL HYDROX/SIMETH 30 ML CUP PO PRN (09:06)
[2016-08-10] MEDS ORDERED: NITROGLYCERIN SL TABS 0.4 MG TAB SUBLINGUAL PRN (09:06)
[2016-08-10] MEDS ORDERED: ATROPINE SULFATE 0.1 MG/ML 10ML SYRINGE IV PRN (09:06)
[2016-08-10] MEDS ORDERED: ZOLPIDEM 5 MG TAB PO PRN (09:06)
[2016-08-10] MEDS ORDERED: SODIUM CHLORIDE 0.9% 1,000 ML IV SCH (09:15)
--- NOTE | 2016-08-10 11:40 | CC ---
DATE OF SERVICE: 08/10/2016 PERFORMING PHYSICIAN: Daisy Campos, Return To Factory Clerk. PROCEDURE PERFORMED: 1. Selective left and right coronary angiogram. 2. SVG angiogram x3. 3. Left internal mammary artery angiogram. 4. Successful stenting of the distal anastomosis of SVG to diagonal using 275 x 15 mm Vision bare-metal stent with a good angiographic results. 5. Successful stenting of the proximal anastomosis of SVG graft to diagonal using 35 x 15 mm Vision BMS with good angiographic results. 6. Intra-arterial injections of nicardipine. INDICATION: This is a pleasant 85-year-old gentleman with a past medical history significant for coronary artery disease and prior coronary artery bypass grafting who fell at home and fractured his right hip. He was ruled in for acute non-ST elevation myocardial infarction. Also, he had significant ST changes consistent with ischemia. I discussed with him the conservative versus invasive approach and the patient like to proceed with a heart catheterization. APPROACH: Right common femoral artery. COMPLICATIONS: None. LEVEL OF SEDATION: Moderate with sedation length of about an hour. PROCEDURE DESCRIPTION: After obtaining an informed consent, the patient was brought to the Cardiac Laundry Clerk. Right common femoral artery was cannulated using micropuncture technique. The micropuncture wire passed easily, then I placed a 6 Spanish sheath in the right common femoral artery. Subsequently, I did selective left and right coronary angiogram using JL4 and JR4 catheters. I did SVG angiogram x2 using JR4 catheter. Then I did left internal artery angiogram using JR4 catheter. After that, I did intervene on the SVG to diagonal, please see separate paragraph for that. SELECTIVE CORONARY ANGIOGRAM: 1. The left main is heavily calcified and seems to be diseased in the range of 50%. It bifurcates into the left circumflex and left anterior descending artery. 2. The left circumflex is heavily calcified and diffusely diseased up to about 80% to 90% in the proximal portion. 3. The left anterior descending artery is completely occluded by the ostium. 4. The right coronary artery is also completely occluded by the ostium and seems to be heavily calcified. 5. SVG to diagonal has 2 lesions. One by the proximal anastomosis and one by the distal anastomosis. The proximal anastomosis lesion is about 70% to 80% and the distal one is about 98%. 6. The SVG to left circumflex is occluded. 7. The SVG to right is occluded as well. 8. To BAEZ to LAD is patent. PCI OF THE SVG TO DIAGONAL: Anticoagulation was initiated using Angiomax. Subsequently, I took JR4 guide and that graft was engaged. A whisper wire was used to wire the graft. Subsequently, I did PTCA ballooning of the graft using 2.0 x 12 mm balloon, where the balloon was inflated under 12 atmospheres in the distal and proximal anastomosis. Subsequently for the distal anastomosis, I deployed 2.75 x 15 mm Vision bare-metal stent, where the stent was positioned under fluoroscopy guidance and it was deployed under 12 atmospheres for 30 seconds. For the proximal anastomosis lesion, I deployed 35 x 15 mm another Vision bare-metal stent, where the stent was positioned under fluoroscopy guidance and deployed under 12 atmospheres. Subsequently, I post dilated the proximal anastomosis lesion using 35 noncompliant balloon. The following angiogram after I gave the patient 200 mcg of nicardipine showed a good angiographic results. CONCLUSION: 1. Heavily calcified left and right coronary system. 2. Severe triple-vessel coronary artery disease. 3. Patent BAEZ to LAD. 4. Patent SVG to diagonal. 5. No other vein grafts were visualized. 6. Successful stenting of the SVG to diagonal as described above. POSTPROCEDURE MANAGEMENT: 1. Maximize medical treatment. 2. Follow up with the patient.
--- NOTE | 2016-08-10 14:14 | P.PN ---
Subjective 85-year-old gentleman those initially seen at [facility] after sustaining a fall and having a right femoral neck fracture. Patient stated he is had multiple falls in the recent times. Patient has been on anticoagulant for her atrial fibrillation and maintained on sotalol. Patient does have a history of CAD status post CABG. In the initial evaluation patient was noted to have an elevated troponin with EKG consistent with the Q waves in the lateral inferior leads. Patient was hence transferred to [facility] for Jorge catheterization. Today on evaluation patient appears to be slightly confused states to have pain in his hip. Patient has had any chest pain, difficult in breathing, nausea, vomiting. Patient apparently had an episode of agitation where he pulled his [place] catheter and thereafter noting blood in his urine. Patient's heparin was held. 08/07/16 Pt is awake answering questions appropriately. Continues to have pain in his right hip Cath via femoral route was unsuccessful Denies CP, NATALIE. 08/08/16 Is more awake today Continues to have pain in his left hip No fevers, chills nausea, vomiting reported. 08/09/16 Continues to have pain in his right hip 08/10/2016 Patient underwent bare metal stent placement in the proximal and distal SVG graft. Patient was noted to have some ecchymosis in the right groin. States the pain only with any movement of the hip. Denies having chest pain, difficulty breathing, nausea, vomiting. Objective - Vital Signs Vital signs: Vital Signs Temp 97.4 F L 08/10/16 05:09 Pulse 70 08/10/16 13:05 Resp 18 08/10/16 12:00 BP 152/70 08/10/16 13:05 Pulse Ox 96 08/10/16 13:05 Intake & Output 08/09/16 08/10/16 08/10/16 18:59 06:59 18:59 Intake Total 706.983 746.755 281.2 Output Total 800 Balance -93.017 746.755 281.2 Weight 86 kg Intake: IV 384 81.2 Heparin Sodium,Porcine/ 224 D5w Pmx 25,000 unit In Dextrose/Water 1 500ml. bag @ 11.1 UNITS/KG/HR 19 .86 mls/hr IV .Q24H [facility] Rx#:[id number] Sodium Chloride 0.9% 1, 160 000 ml @ 20 mls/hr IV . Q24H [facility] Rx#:[id number] Intake, IV Titration 606.983 362.755 200 Amount Heparin Sodium,Porcine/ 406.983 362.755 D5w Pmx 25,000 unit In Dextrose/Water 1 500ml. bag @ 11.236 UNITS/KG/HR 20 mls/hr IV .Q24H [facility] Rx #:[id number] Magnesium Sulfate-D5w Pmx 200 1 gm In Dextrose/Water 1 100ml.bag @ 100 mls/hr IVPB Q1H [facility] Rx#: [id number] Sodium Chloride 0.9% 1, 200 000 ml @ 100 mls/hr IV . Q10H [facility] Rx#:[id number] Oral 100 Output: Urine 800 Other: Voiding Method Indwelling Catheter Indwelling Catheter Indwelling Catheter - Exam Physical exam Gen. appearance oriented 3 in no distress Neck is supple no JVD Lungs good air entry clear to auscultation no rhonchi or wheezing Heart S1-S2 heard regular rate and rhythm no murmurs appreciated Abdomen is soft nontender no organomegaly bowel sounds are intact Lower extremities. Right hip there is ecchymosis noted around the anterior groin and stop is noted Hip is everted outwards. Neurologically cranial nerves II-12 grossly intact no focal motor or sensory deficits noted Skin no abnormalities appreciated - Labs CBC & Chem 7: 08/10/16 02:54 08/10/16 02:54 Labs: Abnormal Lab Results - Last 24 Hours (Table) 08/09/16 08/10/16 08/10/16 Range/Units 19:20 02:54 02:54 RBC 4.19 L (4.30-5.90) m/uL MCV 100.7 H (80.0-100.0) fL Plt Count 84 L (150-450) k/uL APTT 44.8 H (22.0-30.0) sec BUN 29 H (9-20) mg/dL Glucose 127 H (74-99) mg/dL Total Bilirubin 1.7 H (0.2-1.3) mg/dL Total Protein 5.8 L (6.3-8.2) g/dL Albumin 2.9 L (3.5-5.0) g/dL 08/10/16 Range/Units 02:54 RBC (4.30-5.90) m/uL MCV (80.0-100.0) fL Plt Count (150-450) k/uL APTT 48.8 H (22.0-30.0) sec BUN (9-20) mg/dL Glucose (74-99) mg/dL Total Bilirubin (0.2-1.3) mg/dL Total Protein (6.3-8.2) g/dL Albumin (3.5-5.0) g/dL Assessment and Plan Plan: #1 NSTEMI #2 right femoral neck fracture #3 osteoporosis and the diagnosis from the recent fracture #4 history of CAD status post CABG #5 aortic aneurysm repair #6 history of atrial fibrillation on anticoagulation #7 acute toxic encephalopathy, improving #8 hematuria due to trauma, moniter urine. Plan Continue fentanyl patch. Patient was started on Lovenox for DVT prophylaxis. Timing of right hip surgery per orthopedics. Patient is to at least continue dual antiplatelet therapy for 4 weeks. o2 for comfort. Aspirin and Plavix. Other medications to continue
--- NOTE | 2016-08-10 18:31 | XR ---
EXAMINATION TYPE: XR chest 1V portable DATE OF EXAM: 08/10/2016 6:22 PM HISTORY: Shortness of breath. COMPARISON: TECHNIQUE: Single view of the chest is submitted. FINDINGS: Demonstrated are scattered senescent parenchymal change. There is patchy density left lower lobe with small effusion. Pulmonary venous congestion with borderl ine interstitial edema. Mild cardiomegaly. Hilar and mediastinal structures are within normal limits. Degenerative changes are seen of the dorsal spine. IMPRESSION: 1. There is patchy density left lower lobe with small effusion. Pulmonary venous congestion with bor derline interstitial edema. Mild cardiomegaly.
--- NOTE | 2016-08-10 20:31 | PN ---
This patient was transferred here from [facility] with a hip fracture. Patient had a non-Q-wave myocardial infarction. Patient underwent cardiac catheterization today and patient had a stent to the saphenous vein graft to the diagonal branch. Patient is doing fairly well. He is hemodynamically stable. First and second heart sounds are normal. Lungs are clear to auscultation and percussion. I discussed the patient's condition with the orthopedic surgeon. Patient does carry a high risk for surgery, but we do not have any choice. This was also discussed with his son, and patient is scheduled to undergo surgery day after tomorrow. We will give him a dose of Plavix tomorrow and patient will undergo surgery and then he will get the dose of Plavix on afternoon. We will also type and cross-match platelets. If there is any evidence of significant bleeding, then patient can be given platelet infusion. The son fully understands the risk of surgery and they would like to proceed with it.
[2016-08-11 06:50] LABS: Basophils % (A) 0 %; CH 35.3; CHCM 34.5; Eosinophils # (A) 0.1 k/uL (0-0.7); Eosinophils % (A) 2 %; HDW 3.71; HGB 12.9 gm/dL (13.0-17.5); Luc # (Auto) 0.15; Luc % (Auto) 3; Lymphocytes # (A) 1.1 k/uL (1.0-4.8); Lymphocytes % (A) 19 %; MCH 33.2 pg (25.0-35.0); MCHC 32.2 g/dL (31.0-37.0); MCV 103.1 fL (80.0-100.0); Macrocytosis Slight; Mean Platelet Volume 8.3; Monocytes # (A) 0.4 k/uL (0-1.0); Monocytes % (A) 6 %; Neutrophils # (A) 4.1 k/uL (1.3-7.7); Neutrophils % (A) 69 %; Poikilocytosis Slight; RBC 3.88 m/uL (4.30-5.90); RDW 15.2 % (11.5-15.5); WBC 5.9 k/uL (3.8-10.6); WBC (Perox) 6.09
[2016-08-11 07:03] LABS: Anion Gap 9 mmol/L; Blood Urea Nitrogen 28 mg/dL (9-20); Calcium 8.8 mg/dL (8.4-10.2); Carbon Dioxide 27 mmol/L (22-30); Chloride 105 mmol/L (98-107); Glucose 100 mg/dL (74-99); Non-African American GFR(MDRD) >60 (>60 ml/min/1.73 sqM); Potassium 4.1 mmol/L (3.5-5.1); Sodium 141 mmol/L (137-145)
[2016-08-11] MEDS ORDERED: CLOPIDOGREL 75 MG TAB PO SCH (09:07)
[2016-08-11] MEDS: SOTALOL 80 MG TAB PO SCH ×2 (09:11→20:42)
[2016-08-11] MEDS: METOPROLOL TARTRATE 25 MG TAB PO SCH ×2 (09:11→20:42)
[2016-08-11] MEDS: FUROSEMIDE 20 MG TAB PO SCH (09:11)
[2016-08-11] MEDS: ATORVASTATIN 40 MG TAB PO SCH (09:12)
[2016-08-11] MEDS: ENOXAPARIN 40 MG/0.4 ML SYRINGE SQ SCH (09:12)
[2016-08-11] MEDS: CALCITONIN 200 USP/1 NASAL SPRAY 3.7ML BTL NASAL SCH (09:12)
[2016-08-11] MEDS: ASPIRIN 81 MG CHEW PO SCH (09:12)
[2016-08-11] MEDS: HYDROcodone/APAP 5-325MG 1 EACH TAB PO PRN (09:14)
--- NOTE | 2016-08-11 15:09 | P.PN ---
Subjective This is an 85-year-old gentleman admitted to the hospital with a fracture and non-Q-wave myocardial infarction. Patient underwent an attempted cardiac catheterization, guidewire was unable to be advanced. Patient was originally scheduled to yesterday to be taken back to the cardiac catheterization lab because of shortness of breath this was deferred. Patient was taken back to the cardiac catheterization lab yesterday where he underwent successful stenting of the distal SVG to the diuretic and proximal SVG to the diuretic with a bare-metal stent. Patient will be scheduled to undergo hip surgery tomorrow. He will receive his last dose of Plavix today, platelets will be on standby for the surgery tomorrow, then Plavix will be resumed immediately after surgery. Patient was seen and examined today, denies any chest pain or difficulty in breathing. Blood pressure 105/60 heart rate in the 60s. BUN 28, creatinine 0.7. Objective - Vital Signs Vital signs: Vital Signs Temp 96.2 F L 08/11/16 08:00 Pulse 66 08/11/16 12:00 Resp 18 08/11/16 04:00 BP 105/59 08/11/16 12:00 Pulse Ox 94 L 08/11/16 12:00 Intake & Output 08/10/16 08/11/16 08/11/16 18:59 06:59 18:59 Intake Total 281.2 1300 980 Output Total 1650 600 Balance -1368.8 700 980 Weight 86 kg 88.5 kg Intake: IV 81.2 Intake, IV Titration 200 800 800 Amount Sodium Chloride 0.9% 1, 200 800 800 000 ml @ 100 mls/hr IV . Q10H [facility] Rx#:[id number] Oral 500 180 Output: Urine 1650 600 Other: Voiding Method Indwelling Catheter Indwelling Catheter Indwelling Catheter - Exam PHYSICAL EXAMINATION: HEENT: Head is atraumatic, normocephalic. Pupils equal, round. Neck is supple. There is no elevated jugular venous pressure. HEART EXAMINATION: S1 and S2 systolic murmur heard. CHEST EXAMINATION: Lungs are clear with fine crackles to bilateral bases. ABDOMEN: Soft, nontender. Bowel sounds are heard. No organomegaly noted. Right groin ecchymotic, no hematoma, good distal pulse. EXTREMITIES: 2+ peripheral pulses with no evidence of peripheral edema and no calf tenderness noted. NEUROLOGIC patient is awake, alert and oriented -2. . - Labs CBC & Chem 7: 08/11/16 06:02 08/11/16 06:02 Labs: Abnormal Lab Results - Last 24 Hours (Table) 08/11/16 08/11/16 Range/Units 06:02 06:02 RBC 3.88 L (4.30-5.90) m/uL Hgb 12.9 L (13.0-17.5) gm/dL MCV 103.1 H (80.0-100.0) fL Plt Count 72 L (150-450) k/uL BUN 28 H (9-20) mg/dL Glucose 100 H (74-99) mg/dL Assessment and Plan (1) NSTEMI (non-ST elevated myocardial infarction) Status: Acute (2) Hip fracture Status: Acute (3) Hx of CABG Status: Acute (4) AAA (abdominal aortic aneurysm) Status: Acute (5) Hematuria Status: Acute (6) Hematuria Status: Acute Plan: From cardiology's perspective, patient has received a dose of Plavix today, we will hold the Plavix tomorrow, he will have hip surgery tomorrow and following that patient will be resumed on Plavix. Platelets are on standby for the surgery as well. We will continue aspirin. And we will continue to follow. DNP note has been reviewed, I agree with a documented findings and plan of care. Patient was seen and examined.
[2016-08-11 16:55] LABS: Glucose,Whole Blood 131 mg/dL (75-99)
[2016-08-11] MEDS: FAMOTIDINE 20 MG TAB PO SCH (20:42)
--- NOTE | 2016-08-11 22:34 | PN ---
Patient is an 85-year-old gentleman who had a fall and a right femoral neck fracture. Patient also had a yto-UJ-xihnyob-elevation myocardial infarction. Patient underwent cardiac catheterization and stenting. Patient is definitely intermediate to high operative risk. Please refer to Cardiology for further clearance issues. REVIEW OF SYSTEMS: CARDIOVASCULAR: No chest pain, no orthopnea, no PND, no palpitations. PULMONARY: Denied any shortness of breath. No cough or hemoptysis. GASTROINTESTINAL: No diarrhea, nausea or vomiting. No abdominal pain. Normoactive bowel sounds. NEUROLOGIC: No headaches, no weakness, no numbness. Medications were reviewed. PHYSICAL EXAMINATION: VITAL SIGNS: Temperature 97.0, pulse of 60, respiratory rate of 18. Blood pressure is 114/56. Saturating at 99% on 3 L of oxygen by nasal cannula, which we are tapering down. GENERAL: Patient appears to be tired, with malaise. HEENT: Pupils are round and equally reacting to light. EOMI. No scleral icterus. No conjunctival pallor. Normocephalic, atraumatic. No pharyngeal erythema. No thyromegaly. CARDIOVASCULAR: S1 and S2 present. No murmurs, rubs, or gallops. PULMONARY: Chest is clear to auscultation, no wheezing or crackles. ABDOMEN: Soft, nontender, nondistended, normoactive bowel sounds. No palpable organomegaly. MUSCULOSKELETAL: Deferred to Orthopedic Surgery. EXTREMITIES: No cyanosis, clubbing, or pedal edema. NEUROLOGICAL: Gross neurological examination did not reveal any focal deficits. SKIN: No rashes. ASSESSMENT AND PLAN: 1. Yzj-WA-evzktvjgi myocardial infarction ( ) stenting. 2. Osteoporosis with recent fracture and right hip fracture and fall. 3. Coronary artery disease, history of coronary artery bypass graft in the past. 4. Aortic aneurysm with repair. 5. Atrial fibrillation, on anticoagulation. 6. Acute toxic encephalopathy. Patient is still having episodes of confusion. I will go ahead and discontinue Xanax and also fentanyl patch, and patient will be started on Ketorolac for pain. 7. Hematuria due to trauma, which improved. PLAN: Continue the present medications. Discontinue narcotic medications. Patient is not requiring [place]. That will be discontinued as well. Patient is on dual antiplatelet therapy. Patient had a bare-metal stent because of his surgery requirements.
[2016-08-12] MEDS: SOTALOL 80 MG TAB PO SCH ×2 (06:31→22:01)
[2016-08-12] MEDS: METOPROLOL TARTRATE 25 MG TAB PO SCH ×2 (06:31→22:01)
[2016-08-12] MEDS: ASPIRIN 81 MG CHEW PO SCH (06:31)
[2016-08-12] MEDS: CALCITONIN 200 USP/1 NASAL SPRAY 3.7ML BTL NASAL SCH (06:31)
[2016-08-12] MEDS: FAMOTIDINE 20 MG TAB PO SCH ×2 (06:31→22:01)
[2016-08-12] MEDS: ATORVASTATIN 40 MG TAB PO SCH (06:31)
[2016-08-12] MEDS: FUROSEMIDE 20 MG TAB PO SCH (06:32)
[2016-08-12 07:02] LABS: Anion Gap 7 mmol/L; Blood Urea Nitrogen 27 mg/dL (9-20); Calcium 8.6 mg/dL (8.4-10.2); Carbon Dioxide 27 mmol/L (22-30); Chloride 104 mmol/L (98-107); Glucose 104 mg/dL (74-99); Non-African American GFR(MDRD) >60 (>60 ml/min/1.73 sqM); Sodium 138 mmol/L (137-145)
[2016-08-12] MEDS ORDERED: ACETAMINOPHEN TAB 325 MG TAB PO PRN (08:58)
[2016-08-12] MEDS ORDERED: NALOXONE 0.4 MG/ML 1 ML VIAL IV PRN (08:58)
[2016-08-12] MEDS ORDERED: ceFAZolin 2 GM in SODIUM CHLORIDE 0.9% 100 ML IVPB STA (09:12)
[2016-08-12] MEDS ORDERED: LACTATED RINGERS 1,000 ML IV ONE ×2 (09:18)
[2016-08-12] MEDS ORDERED: NEOSTIGMINE 1 MG/ML 10 ML VIAL ONE (10:15)
[2016-08-12] MEDS ORDERED: SUCCINYLCHOLINE CHLORIDE 100 MG/5 ML SYR IV ONE (10:15)
[2016-08-12] MEDS ORDERED: ROCURONIUM BROMIDE 10 MG/ML 10 ML VIAL IV ONE (10:15)
[2016-08-12] MEDS ORDERED: ONDANSETRON 4 MG/2 ML VIAL ONE (10:15)
[2016-08-12] MEDS ORDERED: ETOMIDATE 2 MG/ML 10 ML VIAL ONE (10:15)
[2016-08-12] MEDS ORDERED: fentaNYL (PF) 50 MCG/ML 2 ML AMP ONE (10:15)
[2016-08-12] MEDS ORDERED: PHENYLEPHRINE-0.9% NACL SYG 1 MG/10 ML SYRINGE ONE (10:15)
[2016-08-12] MEDS ORDERED: MIDAZOLAM 2 MG/2 ML VIAL ONE (10:15)
[2016-08-12] MEDS ORDERED: GLYCOPYRROLATE 0.2 MG/ML 2 ML VIAL ONE (10:15)
[2016-08-12] MEDS ORDERED: ceFAZolin 3,000 MG in SODIUM CHLORIDE 0.9% IRRIGATIO 3,000 ML IRRIGATION ONE (10:58)
--- NOTE | 2016-08-12 12:41 | P.OP ---
Date of Procedure: 08/12/16 Preoperative Diagnosis: 1. Right displaced intracapsular femoral neck fracture 2. Coronary artery disease with recent acute coronary event Postoperative Diagnosis: Same Procedure(s) Performed: Right hip hemiarthroplasty Implants: Yas LDFX 14 mm stem, 52 mm diameter head Anesthesia: LEXI Surgeon: Jensen Orellana Dietary Service Aide #1: Mitch Saenz Estimated Blood Loss (ml): 250 IV fluids (ml): 700 Urine output (ml): 50 Pathology: other (Femoral head sent to pathology) Condition: stable Disposition: PACU Indications for Procedure: The patient is an 85-year-old male with a medical history significant for coronary artery disease who sustained a fall last resulting in a hip fracture. He was initially seen at [facility] and was found to have also had an acute coronary event and was transferred to [facility] for cardiac intervention. The patient had an attempt at a stent last Tuesday each was unsuccessful. The patient was not cleared for surgery from a cardiology standpoint until this Tuesday. I met with the patient and his family preoperatively to discuss the potential risks and complications of surgery once he was cleared by cardiology and internal medicine. Risks discussed include but certainly not limited to risks from anesthetic, risk of superficial infection, risk of deep infection, risk of delayed wound healing, risk of wound necrosis, risk of intraoperative fracture, risk of postoperative fracture, risk of dislocation, risk of chronic pain, risk of damage the sciatic nerve, risk of damage to local blood vessels, risk of need for further surgery, risk of inability to ambulate, risk of medical problems including acute coronary event, stroke, DVT, PE, urinary tract infection, pressure sores, and possibly F. The patient and his family understand that he is at a greater risk of having a perioperative medical complication including acute coronary event and due to his age, underlying heart condition, and that is been almost a week since he sustained his fracture. They provided verbal and written consent to go forward with surgery. Description of Procedure: The patient was identified in preoperative holding and the correct right leg was marked with a marker. I reviewed the consent form with the patient and his family. The patient was then brought back to the operating room. He was transferred from the [facility] onto the operating room table and a general anesthetic was administered. The patient was then placed in the lateral decubitus position with the left side down and right side up. All bony prominences well-padded and an axillary roll was placed. He was secured to the operating room table with a Montral frame. The right leg was then prepped and draped in the standard sterile fashion. A timeout was then performed identifying the correct patient, operative procedure, and extremity. Preoperative antibiotics were confirmed. A marking pen was used to edvin over the skin incision site for posterior approach to the hip. A 10 cm longitudinal incision was centered over the posterior half of the proximal femur and angled posteriorly 45 for another 10 m at the tip of the greater trochanter. Skin incision was made a 10 blade scalpel. Dissection was carried down through the subcutaneous tissue with electrocautery to the IT band. A medium Pinto elevator was used to develop the IT band. The leg was then abducted and the IT band was incised longitudinally in line with the skin incision starting distally and working proximally. The fibers of the gluteus trey were bluntly dissected with my finger. A Charnley retractor was placed. The leg was internally rotated and the trochanteric bursa was elevated off the posterior aspect of the femur. A medium Pinto elevator was used to develop the interval between the piriformis and hip capsule. The piriformis and short external rotators were released off of the posterior femur with electrocautery. The hip capsule was identified and then teed. Immediately upon entering the hip capsule the subcapital femoral neck fracture was identified and there was a del cid of blood. Richardson retractors were placed exposing the neck. A sagittal saw was used to cut the femoral neck 1 fingerbreadth above the lesser trochanter. A corkscrew was used to remove the femoral head. It was sent to the back table and sized at 52 mm and then sent to pathology. The proximal femur was then opened with a box osteotome and canal finder. I then sequentially broached in 1 mm increments up to a 14 mm broach handle which felt stable. A calcar planar was used to bring the neck cut flush with the broach. I then trialed with a 52 mm standard offset neck head. The hip was gently reduced and was felt to be stable. The hip was then gently dislocated with the use of a bone hook. The trial head and broach were removed. The hip was copiously irrigated and the canal was prepared for cement. A moist sponge was placed in the acetabulum. A 13 mm cement restrictor was placed in the femur. Cement was then mixed and pressurized into the proximal femur. A size 14 mm stem was dispensed and gently tapped in place until the collar reached the calcar area and I took care to place the stem in anteversion. Once the cement had hardened all the remaining pieces of cement were removed and the sponge was removed from the acetabulum. A 52 mm standard offset neck trial was placed and the hip was gently reduced. The hip again felt stable. The hip was reduced with the aid of a shoulder hook and the trial head and neck adapter removed. A final 52 mm head was dispensed. The Huizar taper on the stem was cleansed and the final head component was placed and gently tapped in place. The hip was then carefully reduced and irrigated. The capsule was closed with interrupted 0 Vicryl sutures. Using a #2 Ethibond a suture was placed through the greater trochanter and the piriformis tendon was grasped with a Farhad-Adams suture and passed back through the greater trochanter. The Charnley retractor was then removed and the wound was again irrigated using pulsatile lavage. The IT band was approximated using 0 Vicryl and then closed with a running Quill stitch. The deep subcu was reapproximated using 0 Vicryl. The superficial subcu was closed with interrupted 2-0 Vicryl stitches. The skin was closed with a running subcuticular Quill stitch and Dermabond. After the incision was closer verified that all instrument sponge and sharp counts were correct. A sterile dressing was then applied and the drapes were taken down. A hip abduction pillow was placed. The patient was then transferred from the operating room table to the [facility] and was brought to PACU having tolerated the procedure well. Mitch Yates PA-C was required as a skilled licensed physical therapist assistant throughout the procedure for positioning, exposure, placement of implants, closure of the wound, and transfer. Next Plan: The patient is to be weightbearing as tolerated on his right leg. He is to follow strict posterior hip precautions for 6 weeks. Hip abduction pillow while in bed. 2 doses of postoperative antibiotics. I will defer to internal medicine and cardiology for DVT prophylaxis, I generally place people on Lovenox 40 mg daily 4 weeks following hip fracture, but again will defer to internal medicine and cardiology due to the patient being on multiple anticoagulants for his cardiac issues.
--- NOTE | 2016-08-12 13:01 | XR ---
EXAMINATION TYPE: XR Hip Limited RT DATE OF EXAM: 08/12/2016 12:57 PM CLINICAL HISTORY: Right hip fracture. TECHNIQUE: Single AP portable view of right hip is obtained immediately postoperatively. COMPARISON: Right hip and femur x-ray August 05, 2016 FINDINGS: Metallic hardware from total right hip arthroplasty is seen and appears satisfactory in ali gnment and position. There is evidence of recent surgery with subcutaneous gas noted laterally. IMPRESSION: Metallic hardware from right hip arthroplasty is satisfactory in position.
[2016-08-12] MEDS ORDERED: CLOPIDOGREL 75 MG TAB PO STA (14:34)
[2016-08-12] MEDS: ENOXAPARIN 40 MG/0.4 ML SYRINGE SQ SCH (15:00)
[2016-08-12 15:38] LABS: INR 1.1 (<1.1)
[2016-08-12] MEDS: ceFAZolin 2 GM in SODIUM CHLORIDE 0.9% 100 ML IVPB SCH ×2 (15:48→23:44)
--- NOTE | 2016-08-12 18:28 | PN ---
Patient is an 85-year-old admitted to the hospital after a fall and right femoral neck fracture. Patient subsequently underwent surgery. The patient has a [id number]-TY-[id number] myocardial infarction for which patient underwent cardiac catheterization and stenting. Patient is clinically doing well just awaking from anesthesia because of which I am unable to get much of the review of systems. Review of systems unable to obtain due to above mentioned reasons. Medications were reviewed. PHYSICAL EXAMINATION: VITAL SIGNS: Temperature 97.0, pulse of 58, respiratory rate of 16, blood pressure is 120/56, saturating at 96% on 2 liters of oxygen by nasal cannula. GENERAL: The patient is a bit drowsy in the postoperative period from anesthesia, unable to assess orientation. HEENT: Pupils are round and equally reacting to light. EOMI. No scleral icterus. No conjunctival pallor. Normocephalic, atraumatic. No pharyngeal erythema. No thyromegaly. CARDIOVASCULAR: S1 and S2 present. No murmurs, rubs, or gallops. PULMONARY: Chest is clear to auscultation, no wheezing or crackles. ABDOMEN: Soft, nontender, nondistended, normoactive bowel sounds. No palpable organomegaly. EXTREMITIES: No cyanosis, clubbing, or pedal edema. NEUROLOGICAL: Gross neurological examination did not reveal any focal deficits. SKIN: No rashes. Musculoskeletal defer to orthopedic surgery. Laboratory data was reviewed. There are no significant abnormality was appreciated compared to yesterday. ASSESSMENT AND PLAN: 1. Kxs-SG-viqdfmnlm myocardial infarction status post cardiac catheterization and stenting. 2. ( ) due to recent hip fracture and fall. 3. Coronary artery disease with coronary artery bypass grafting in the past. 4. Aortic aneurysm repair. 5. Atrial fibrillation. 6. Acute toxic encephalopathy secondary to medications narcotics, which were discontinued. 7. Hematuria, due to trauma which improved. Plan is to continue the present medications. Avoid narcotics and continue to follow closely and possibility of discharge tomorrow to subacute rehabilitation if he is doing okay.
[2016-08-12] MEDS: KETOROLAC 30 MG/ML 1 ML VIAL IVP PRN (19:13)
[2016-08-12] MEDS: HYDROcodone/APAP 5-325MG 1 EACH TAB PO PRN (20:12)
[2016-08-12] MEDS: WARFARIN 5 MG TAB PO SCH (22:01)
[2016-08-13] MEDS: KETOROLAC 30 MG/ML 1 ML VIAL IVP PRN (04:20)
[2016-08-13] MEDS: traMADol 50 MG TAB PO PRN ×2 (04:20→17:38)
[2016-08-13 07:13] LABS: INR 1.3 (<1.1)
[2016-08-13 07:21] LABS: Basophils % (A) 0 %; CH 35.3; CHCM 35.4; Eosinophils # (A) 0.1 k/uL (0-0.7); Eosinophils % (A) 1 %; HDW 3.86; HGB 11.3 gm/dL (13.0-17.5); Luc # (Auto) 0.13; Luc % (Auto) 2; Lymphocytes # (A) 1.2 k/uL (1.0-4.8); Lymphocytes % (A) 16 %; MCH 34.5 pg (25.0-35.0); MCHC 34.2 g/dL (31.0-37.0); MCV 100.8 fL (80.0-100.0); Macrocytosis Slight; Mean Platelet Volume 8.6; Monocytes # (A) 0.4 k/uL (0-1.0); Monocytes % (A) 5 %; Neutrophils # (A) 5.6 k/uL (1.3-7.7); Neutrophils % (A) 76 %; Poikilocytosis Slight; RBC 3.28 m/uL (4.30-5.90); RDW 15.5 % (11.5-15.5); WBC 7.3 k/uL (3.8-10.6); WBC (Perox) 7.72
[2016-08-13 07:27] LABS: Anion Gap 8 mmol/L; Blood Urea Nitrogen 34 mg/dL (9-20); Calcium 8.4 mg/dL (8.4-10.2); Carbon Dioxide 29 mmol/L (22-30); Chloride 102 mmol/L (98-107); Glucose 116 mg/dL (74-99); Non-African American GFR(MDRD) >60 (>60 ml/min/1.73 sqM); Potassium 4.3 mmol/L (3.5-5.1); Sodium 139 mmol/L (137-145)
[2016-08-13] MEDS: ATORVASTATIN 40 MG TAB PO SCH (08:07)
[2016-08-13] MEDS: FUROSEMIDE 20 MG TAB PO SCH (08:08)
[2016-08-13] MEDS: FAMOTIDINE 20 MG TAB PO SCH ×2 (08:08→20:17)
[2016-08-13] MEDS: ASPIRIN 81 MG CHEW PO SCH (08:08)
[2016-08-13] MEDS: CLOPIDOGREL 75 MG TAB PO SCH (08:08)
[2016-08-13] MEDS: METOPROLOL TARTRATE 25 MG TAB PO SCH ×2 (08:08→20:17)
--- NOTE | 2016-08-13 09:20 | P.PN ---
Subjective Principal diagnosis: S/P hemiarthroplasty right hip This is a pleasant 85-year-old gentleman who is status post right hip hemiarthroplasty. The patient is seen and evaluated at bedside today. He does apparently have some baseline confusion. She states that he is not having right hip pain at this time. He is not appear to be in acute distress. He appears comfortable. He has no other complaints at this time. Objective - Vital Signs Vital signs: Vital Signs Temp 98.4 F 08/13/16 07:00 Pulse 65 08/13/16 07:00 Resp 17 08/13/16 07:00 BP 103/50 08/13/16 07:00 Pulse Ox 98 08/13/16 07:00 Intake & Output 08/12/16 08/13/16 08/13/16 18:59 06:59 18:59 Intake Total 974 330 Output Total 800 Balance 174 330 Intake: IV 901 80 Sodium Chloride 0.9% 1, 80 000 ml @ 20 mls/hr IV . Q24H [facility] Rx#:[id number] Oral 73 250 Output: Urine 550 Estimated Blood Loss 250 Other: Voiding Method Indwelling Catheter Indwelling Catheter - Exam The patient does not appear in acute distress. He is alert and answers questions appropriately. Per nursing staff he does have some baseline confusion. Dressing is clean dry and intact. Incision appears fine with no erythema or active drainage. Calf is soft and nontender. Good foot and ankle motion without difficulty. Sensation and circulatory status is intact. - Labs CBC & Chem 7: 08/13/16 06:43 08/13/16 06:43 Labs: Abnormal Lab Results - Last 24 Hours (Table) 08/13/16 08/13/16 08/13/16 Range/Units 06:43 06:43 06:43 RBC 3.28 L (4.30-5.90) m/uL Hgb 11.3 L (13.0-17.5) gm/dL Hct 33.0 L (39.0-53.0) % MCV 100.8 H (80.0-100.0) fL Plt Count 107 L (150-450) k/uL PT 13.0 H (9.0-12.0) sec BUN 34 H (9-20) mg/dL Glucose 116 H (74-99) mg/dL Assessment and Plan (1) Closed right hip fracture Status: Acute (2) Status post hip hemiarthroplasty Status: Acute Plan: Continue with routine postoperative care. Weightbearing as tolerated right lower extremity. Anticoagulation to be managed by medicine. Further recommendations forthcoming depending on patient's course.
[2016-08-13 10:03] VITALS: BMI 27.8
[2016-08-13] MEDS: CALCITONIN 200 USP/1 NASAL SPRAY 3.7ML BTL NASAL SCH (10:57)
[2016-08-13] MEDS: SOTALOL 80 MG TAB PO SCH ×2 (10:57→20:17)
[2016-08-13] MEDS: MULTIVITAMINS, THERA 1 EACH TAB PO SCH (11:55)
--- NOTE | 2016-08-13 15:43 | CDI ---
In responding to this query, please exercise your independent professional judgment. The [facility] Coding Staff and Clinical Documentation Specialists appreciate your assistance in clarifying documentation, maintaining compliance with coding guidelines, accurately documenting patients condition and capturing severity of illness. The fact that a question is asked does not imply that any particular answer is desired or expected. Communication forms are a method of clarifying documentation and are not made part of the Legal Health Record. Thank you in advance for your clarification. Last Revision, July 2015 Nish Dhaliwal [address] [facility] [place] [address] Documentation Clarification Form Date: 08/13/2016 3:22:00 PM From: Almaz Oconnor Admit Date: 08/05/2016 3:16:00 PM Patient Name: Rambo Avalos Visit Number: [id number] Discharge Date: Dr. Jensen Orellana Documentation in the Operative Report include: Yas LDFX 14 mm stem, 52 diameter head History/Risk factors: Right displaced intracapsular femoral neck fracture Pre-Operative Diagnosis: Same Postoperative Diagnosis: Same Clinical Indicators: Patient sustained a fall with resulting hip fracture. Treatment: Right Hip Hemiarthroplasty In order to capture the severity of condition, please specify the following: Further clarify device(s) used Synthetic Substitute Synthetic Substitute, Ceramic (includes ceramic on ceramic) Synthetic Substitute, Metal (includes metal on metal) Please document as an addendum to your operative report in order to capture severity of illness and risk of mortality. FYI: Press F11 to launch patient chart Place X here if this finding has no clinical significance, is not applicable or if you are not able to provide any additional documentation. JONATHAN
[2016-08-13] MEDS: WARFARIN 5 MG TAB PO SCH (17:38)
--- NOTE | 2016-08-13 19:18 | PN ---
Patient is an 85-year-old admitted after a fall and had a right femoral neck fracture. Patient underwent arthroplasty of the right femoral neck. Patient underwent surgery ( ) tgn-HU-thuoecmpd myocardial infarction, underwent cardiac catheterization and stenting. Patient is clinically doing well at this point of time but still feels really tired. Patient's kidney function has worsened a bit. Patient is on oral Lasix. Patient does have decreased ejection fraction; maybe acute systolic dysfunction with 35% to 40% ejection fraction. Patient is on 20 mg of Lasix. Will continue with that. Will repeat a chest x-ray. Will recheck the kidney function. REVIEW OF SYSTEMS: CARDIOVASCULAR: No chest pain, no orthopnea, no PND, no palpitations. PULMONARY: Denied any shortness of breath. No cough or hemoptysis. GASTROINTESTINAL: No diarrhea, nausea or vomiting. No abdominal pain. Normoactive bowel sounds. NEUROLOGIC: No headaches, no weakness, no numbness. Medications are reviewed. PHYSICAL EXAMINATION: VITAL SIGNS: Temperature 98.3, pulse 71, respiratory rate of 16. Blood pressure is 115/72. Saturating at 94% on room air. GENERAL: Patient is sitting on the chair, appears to be tired, alert, oriented around 2 to 3. HEENT: Pupils are round and equally reacting to light. EOMI. No scleral icterus. No conjunctival pallor. Normocephalic, atraumatic. No pharyngeal erythema. No thyromegaly. CARDIOVASCULAR: S1 and S2 present. No murmurs, rubs, or gallops. PULMONARY: Chest is clear to auscultation, no wheezing or crackles. ABDOMEN: Soft, nontender, nondistended, normoactive bowel sounds. No palpable organomegaly. MUSCULOSKELETAL: No joint swelling or deformity. EXTREMITIES: No cyanosis, clubbing, or pedal edema. NEUROLOGICAL: Gross neurological examination did not reveal any focal deficits. SKIN: No rashes. LABORATORY DATA: BUN and creatinine are minimally elevated compared to yesterday. BUN is 34, creatinine of 1.07. ASSESSMENT AND PLAN: 1. Wti-CD-nmbsrslwt myocardial infarction, status post cardiac catheterization and stenting. 2. Hip fracture, status post surgical correction. 3. On Coumadin anticoagulation for deep venous thrombosis prophylaxis after the hip fracture surgery. 4. Coronary artery disease and history of coronary artery bypass graft in the past. Patient has a recent stent. 5. Aortic aneurysm repair. 6. Atrial fibrillation, rate controlled. 7. Congestive heart failure, chronic systolic dysfunction. Patient is fairly euvolemic at this point of time. I will obtain a chest x-ray tomorrow. 8. Constipation. Symptomatic treatment. 9. Acute toxic encephalopathy secondary to narcotic medications, which were discontinued. Patient is looking better after that. 10. Hematuria due to trauma, improved. Patient is not requiring too many medications at this point of time. Flint will be discontinued. Ketorolac will be discontinued because of the borderline kidney function. Tramadol will be continued for pain and Tylenol for pain.
[2016-08-14 07:03] LABS: CH 35.5; CHCM 35.2; HCT 32.9 % (39.0-53.0); HDW 3.94; MCHC 33.4 g/dL (31.0-37.0); MCV 101.8 fL (80.0-100.0); Macrocytosis Slight; Mean Platelet Volume 9.3; Poikilocytosis Slight; RBC 3.24 m/uL (4.30-5.90); RDW 15.6 % (11.5-15.5); WBC 9.7 k/uL (3.8-10.6)
[2016-08-14 07:11] LABS: INR 2.4 (<1.1)
[2016-08-14 07:23] LABS: Anion Gap 11 mmol/L; Blood Urea Nitrogen 38 mg/dL (9-20); Calcium 8.8 mg/dL (8.4-10.2); Carbon Dioxide 26 mmol/L (22-30); Chloride 101 mmol/L (98-107); Glucose 118 mg/dL (74-99); Non-African American GFR(MDRD) >60 (>60 ml/min/1.73 sqM); Potassium 4.8 mmol/L (3.5-5.1); Sodium 138 mmol/L (137-145)
[2016-08-14] MEDS: ATORVASTATIN 40 MG TAB PO SCH (07:37)
[2016-08-14] MEDS: ASPIRIN 81 MG CHEW PO SCH (07:37)
[2016-08-14] MEDS: METOPROLOL TARTRATE 25 MG TAB PO SCH (07:37)
[2016-08-14] MEDS: FUROSEMIDE 20 MG TAB PO SCH (07:37)
[2016-08-14] MEDS: MULTIVITAMINS, THERA 1 EACH TAB PO SCH (07:37)
[2016-08-14] MEDS: traMADol 50 MG TAB PO PRN ×2 (07:40→14:01)
--- NOTE | 2016-08-14 08:21 | P.PN ---
Subjective Principal diagnosis: S/P hemiarthroplasty right hip This is a pleasant 85-year-old gentleman who is status post right hip hemiarthroplasty. The patient is seen and evaluated at bedside today. He does apparently have some baseline confusion. He appears comfortable. He has no other complaints at this time. His pain is under fair control. Objective - Vital Signs Vital signs: Vital Signs Temp 97.1 F L 08/14/16 02:09 Pulse 80 08/14/16 02:09 Resp 16 08/14/16 02:09 BP 98/57 08/14/16 02:09 Pulse Ox 93 L 08/14/16 07:38 Intake & Output 08/13/16 08/14/16 08/14/16 18:59 06:59 18:59 Intake Total 160 Output Total 400 Balance -240 Weight 88 kg Intake: IV 160 Sodium Chloride 0.9% 1, 160 000 ml @ 20 mls/hr IV . Q24H [facility] Rx#:[id number] Output: Urine 400 Uretheral (Overton) 400 Other: Voiding Method Indwelling Catheter - Exam The patient does not appear in acute distress. He is alert and answers questions appropriately. Per nursing staff he does have some baseline confusion. Dressing is clean dry and intact. Calf is soft and nontender. Good foot and ankle motion without difficulty. Sensation and circulatory status is intact. - Labs CBC & Chem 7: 08/14/16 06:10 08/14/16 06:10 Labs: Abnormal Lab Results - Last 24 Hours (Table) 08/14/16 08/14/16 08/14/16 Range/Units 06:10 06:10 06:10 RBC 3.24 L (4.30-5.90) m/uL Hgb 11.0 L (13.0-17.5) gm/dL Hct 32.9 L (39.0-53.0) % MCV 101.8 H (80.0-100.0) fL RDW 15.6 H (11.5-15.5) % Plt Count 133 L (150-450) k/uL PT 23.0 H (9.0-12.0) sec BUN 38 H (9-20) mg/dL Glucose 118 H (74-99) mg/dL Assessment and Plan (1) Closed right hip fracture Status: Acute (2) Status post hip hemiarthroplasty Status: Acute Plan: Continue with routine postoperative care. Weightbearing as tolerated right lower extremity. Anticoagulation to be managed by medicine. Further recommendations forthcoming depending on patient's course.
--- NOTE | 2016-08-14 08:39 | XR ---
EXAMINATION TYPE: XR chest 1V DATE OF EXAM: 08/14/2016 8:32 AM CLINICAL HISTORY: Difficulty breathing and pulmonary edema progress study. TECHNIQUE: Single AP portable upright view of the chest is obtained. COMPARISON: Chest x-ray from 4 days earlier FINDINGS: Sternal wires and mediastinal clips are redemonstrated. Cardiac silhouette size is stable and upper limits of normal. There is improved aeration left basilar region with improvement in centra l vascular congestion. Right lung remains clear. No pleural effusion or pneumothorax is seen bilatera lly. Osseous structures are intact. Surgical clips upper abdomen are noted. IMPRESSION: Improving central vascular congestion and left basilar infiltrate, no new infiltrate is s een.
--- NOTE | 2016-08-14 13:53 | P.PN ---
Subjective Principal diagnosis: Acute coronary syndrome This is a pleasant 85-year-old gentleman with known history of coronary artery disease and prior coronary artery bypass grafting as well as hypertension and dyslipidemia presented initially to [facility] after he had a syncope at home. He was ruled in for acute coronary syndrome. He underwent a heart catheterization from the right groin which showed severe disease involving the proximal and distal anastomosis of SVG to diagonal branch. He underwent successful stenting of the proximal and distal anastomosis with a good angiographic results. The patient underwent hip surgery 2 days ago. From the cardiovascular standpoint overview, he denies having any chest pain or discomfort. The blood pressure has been on the low side. I'm going to decrease the dose of metoprolol to 12.5 mg by mouth twice a day. Continue the current medical treatment was dual antiplatelet therapy. Objective - Vital Signs Vital signs: Vital Signs Temp 97.0 F L 08/14/16 07:00 Pulse 72 08/14/16 08:00 Resp 14 08/14/16 07:00 BP 120/57 08/14/16 07:00 Pulse Ox 93 L 08/14/16 07:38 Intake & Output 08/13/16 08/14/16 08/14/16 18:59 06:59 18:59 Intake Total 160 240 Output Total 400 500 Balance -240 -500 240 Weight 88 kg Intake: IV 160 Sodium Chloride 0.9% 1, 160 000 ml @ 20 mls/hr IV . Q24H [facility] Rx#:[id number] Oral 240 Output: Urine 400 500 Uretheral ([place]) 400 Other: Voiding Method Indwelling Catheter - Constitutional General appearance: Present: no acute distress - Respiratory Respiratory: bilateral: diminished - Cardiovascular Rhythm: regular - Labs CBC & Chem 7: 08/14/16 06:10 08/14/16 06:10 Labs: Abnormal Lab Results - Last 24 Hours (Table) 08/14/16 08/14/16 08/14/16 Range/Units 06:10 06:10 06:10 RBC 3.24 L (4.30-5.90) m/uL Hgb 11.0 L (13.0-17.5) gm/dL Hct 32.9 L (39.0-53.0) % MCV 101.8 H (80.0-100.0) fL RDW 15.6 H (11.5-15.5) % Plt Count 133 L (150-450) k/uL PT 23.0 H (9.0-12.0) sec BUN 38 H (9-20) mg/dL Glucose 118 H (74-99) mg/dL Assessment and Plan Plan: Assessment #1 acute coronary event #2 status post fall and hip fracture #3 known CAD #4 status post PCI of the SVG to diagonal #5 cardiomyopathy Plan #1 decrease the dose of metoprolol to 12.5 mg by mouth twice a day #2 continue dual antiplatelet therapy #3 follow-up with the patient
[2016-08-14] MEDS: CLOPIDOGREL 75 MG TAB PO SCH (15:56)
[2016-08-14] MEDS: CALCITONIN 200 USP/1 NASAL SPRAY 3.7ML BTL NASAL SCH (15:56)
[2016-08-14] MEDS: FAMOTIDINE 20 MG TAB PO SCH ×2 (15:56→22:06)
[2016-08-14] MEDS: SOTALOL 80 MG TAB PO SCH ×2 (15:57→22:07)
--- NOTE | 2016-08-14 18:14 | PN ---
Patient is an 85-year-old admitted after a fall and patient underwent a right hip arthroplasty. Patient also had taq-OJ-mooqclmnn myocardial infarction and congestive heart failure with acute exacerbation. Patient's kidney function is improving. Overton cath was removed yesterday. Patient is retaining urine. Will add Flomax and do straight catheterization. Patient is looking much better than yesterday. REVIEW OF SYSTEMS: CARDIOVASCULAR: No chest pain, no orthopnea, no PND, no palpitations. PULMONARY: Denied any shortness of breath. No cough or hemoptysis. GASTROINTESTINAL: No diarrhea, nausea or vomiting. No abdominal pain. Normoactive bowel sounds. NEUROLOGIC: No headaches, no weakness, no numbness. Medications were reviewed. PHYSICAL EXAMINATION: Temperature 97.8, pulse of 66, respiratory rate 16, blood pressure 115/76, saturating at 92% on room. GENERAL: The patient is looking much better today. Alert and oriented almost 2 to 3. HEENT: Pupils are round and equally reacting to light. EOMI. No scleral icterus. No conjunctival pallor. Normocephalic, atraumatic. No pharyngeal erythema. No thyromegaly. CARDIOVASCULAR: S1 and S2 present. No murmurs, rubs, or gallops. PULMONARY: Chest is clear to auscultation, no wheezing or crackles. ABDOMEN: Soft, nontender, nondistended, normoactive bowel sounds. No palpable organomegaly. MUSCULOSKELETAL: No joint swelling or deformity. EXTREMITIES: No cyanosis, clubbing, or pedal edema. NEUROLOGICAL: Gross neurological examination did not reveal any focal deficits. SKIN: No rashes. Chest x-ray was reviewed, which is showing improved congestion and creatinine did improve. INR is 2.4 and will hold off on Coumadin. ASSESSMENT AND PLAN: 1. Mwe-MJ-enxqoevfj myocardial infarction status post cardiac catheterization stenting. 2. Hip fracture, status post surgical correction. 3. Patient is on Coumadin for DVT prophylaxis, INR of 2.4. Hold off Coumadin. 4. Ischemic cardiomyopathy, chronic systolic dysfunction with mild acute exacerbation. 5. Constipation. Patient is still constipated and moved his bowel. 6. Toxic encephalopathy, resolved, secondary to medications. 7. Hematuria, resolved.
[2016-08-14] MEDS: TAMSULOSIN 0.4 MG CAP.ER.24H PO SCH (18:26)
[2016-08-14] MEDS: METOPROLOL TARTRATE 12.5 MG TAB PO SCH (22:05)
[2016-08-14] MEDS: LACTULOSE 20 GM/30 ML CUP PO SCH (22:07)
[2016-08-15] MEDS: traMADol 50 MG TAB PO PRN ×3 (05:41→22:00)
--- NOTE | 2016-08-15 07:16 | P.PN ---
Subjective Principal diagnosis: S/P hemiarthroplasty right hip This is a pleasant 85-year-old gentleman who is status post right hip hemiarthroplasty. The patient is seen and evaluated at bedside today. He appears comfortable. He has no other complaints at this time. His pain is under fair control. Objective - Vital Signs Vital signs: Vital Signs Temp 97.6 F 08/15/16 02:08 Pulse 81 08/15/16 02:08 Resp 16 08/15/16 02:08 BP 109/57 08/15/16 02:08 Pulse Ox 95 08/15/16 02:08 Intake & Output 08/14/16 08/15/16 08/15/16 18:59 06:59 18:59 Intake Total 360 200 Output Total 500 Balance 360 -300 Intake: Oral 360 200 Output: Urine 500 Other: Voiding Method Urinal Diaper # Voids 0 - Exam The patient does not appear in acute distress. He is alert and answers questions appropriately. Dressing is clean dry and intact. Calf is soft and nontender. Good foot and ankle motion without difficulty. Sensation and circulatory status is intact. - Labs CBC & Chem 7: 08/14/16 06:10 08/14/16 06:10 Labs: Abnormal Lab Results - Last 24 Hours (Table) 08/14/16 08/14/16 Range/Units 06:10 06:10 PT 23.0 H (9.0-12.0) sec BUN 38 H (9-20) mg/dL Glucose 118 H (74-99) mg/dL Assessment and Plan (1) Closed right hip fracture Status: Acute (2) Status post hip hemiarthroplasty Status: Acute Plan: Continue with routine postoperative care. Weightbearing as tolerated right lower extremity. Anticoagulation to be managed by medicine. Anticipate transfer to rehab on Tuesday if cleared medically.
[2016-08-15 07:32] LABS: Anisocytosis Slight; Basophils % (A) 0 %; CH 35.5; CHCM 35.1; Eosinophils # (A) 0.1 k/uL (0-0.7); Eosinophils % (A) 2 %; HCT 32.1 % (39.0-53.0); HGB 10.7 gm/dL (13.0-17.5); Luc # (Auto) 0.14; Luc % (Auto) 2; Lymphocytes # (A) 1.1 k/uL (1.0-4.8); Lymphocytes % (A) 14 %; MCH 34.2 pg (25.0-35.0); MCHC 33.4 g/dL (31.0-37.0); MCV 102.4 fL (80.0-100.0); Macrocytosis Slight; Mean Platelet Volume 9.1; Monocytes # (A) 0.4 k/uL (0-1.0); Monocytes % (A) 5 %; Neutrophils # (A) 6.1 k/uL (1.3-7.7); Neutrophils % (A) 77 %; Poikilocytosis Moderate; RBC 3.13 m/uL (4.30-5.90); RDW 16.2 % (11.5-15.5); WBC 7.9 k/uL (3.8-10.6); WBC (Perox) 8.14
[2016-08-15 07:36] LABS: INR 2.3 (<1.1)
[2016-08-15] MEDS: FUROSEMIDE 20 MG TAB PO SCH (07:37)
[2016-08-15] MEDS: CLOPIDOGREL 75 MG TAB PO SCH (07:37)
[2016-08-15] MEDS: ATORVASTATIN 40 MG TAB PO SCH (07:37)
[2016-08-15] MEDS: MULTIVITAMINS, THERA 1 EACH TAB PO SCH (07:37)
[2016-08-15] MEDS: LACTULOSE 20 GM/30 ML CUP PO SCH ×2 (07:37→21:58)
[2016-08-15] MEDS: FAMOTIDINE 20 MG TAB PO SCH ×2 (07:37→21:58)
[2016-08-15] MEDS: ASPIRIN 81 MG CHEW PO SCH (07:37)
[2016-08-15] MEDS: METOPROLOL TARTRATE 12.5 MG TAB PO SCH ×2 (07:38→21:59)
[2016-08-15] MEDS: SOTALOL 80 MG TAB PO SCH ×2 (07:38→22:00)
[2016-08-15 07:50] LABS: Anion Gap 10 mmol/L; Blood Urea Nitrogen 35 mg/dL (9-20); Calcium 8.7 mg/dL (8.4-10.2); Carbon Dioxide 29 mmol/L (22-30); Chloride 103 mmol/L (98-107); Glucose 134 mg/dL (74-99); Non-African American GFR(MDRD) >60 (>60 ml/min/1.73 sqM); Sodium 142 mmol/L (137-145)
--- NOTE | 2016-08-15 09:33 | P.PN ---
Subjective Principal diagnosis: Acute coronary syndrome This is a pleasant 85-year-old gentleman with known history of coronary artery disease and prior coronary artery bypass grafting as well as hypertension and dyslipidemia presented initially to [facility] after he had a syncope at home. He was ruled in for acute coronary syndrome. He underwent a heart catheterization from the right groin which showed severe disease involving the proximal and distal anastomosis of SVG to diagonal branch. He underwent successful stenting of the proximal and distal anastomosis with a good angiographic results. The patient underwent hip surgery 2 days ago. From the cardiovascular standpoint overview, he denies having any chest pain or discomfort. The blood pressure has been on the low side. We'll continue the current medical treatment and continue monitoring the blood pressure and heart rates. Objective - Vital Signs Vital signs: Vital Signs Temp 97.6 F 08/15/16 07:00 Pulse 84 08/15/16 07:00 Resp 14 08/15/16 07:00 BP 90/54 08/15/16 07:00 Pulse Ox 97 08/15/16 07:00 Intake & Output 08/14/16 08/15/16 08/15/16 18:59 06:59 18:59 Intake Total 360 200 Output Total 500 Balance 360 -300 Intake: Oral 360 200 Output: Urine 500 Other: Voiding Method Urinal Diaper # Voids 0 - Constitutional General appearance: Present: no acute distress - Respiratory Respiratory: bilateral: diminished - Cardiovascular Heart sounds: normal: S1, S2 - Labs CBC & Chem 7: 08/15/16 06:50 08/15/16 06:50 Labs: Abnormal Lab Results - Last 24 Hours (Table) 08/15/16 08/15/16 08/15/16 Range/Units 06:50 06:50 06:50 RBC 3.13 L (4.30-5.90) m/uL Hgb 10.7 L (13.0-17.5) gm/dL Hct 32.1 L (39.0-53.0) % MCV 102.4 H (80.0-100.0) fL RDW 16.2 H (11.5-15.5) % Plt Count 137 L (150-450) k/uL PT 22.0 H (9.0-12.0) sec BUN 35 H (9-20) mg/dL Glucose 134 H (74-99) mg/dL Assessment and Plan Plan: Assessment #1 acute coronary event #2 status post fall and hip fracture #3 known CAD #4 status post PCI of the SVG to diagonal #5 cardiomyopathy Plan #1 continue the current dose of metoprolol #2 continue dual antiplatelet therapy #3 follow-up with the patient
[2016-08-15] MEDS: CALCITONIN 200 USP/1 NASAL SPRAY 3.7ML BTL NASAL SCH (15:42)
[2016-08-15] MEDS: TAMSULOSIN 0.4 MG CAP.ER.24H PO SCH (17:24)
[2016-08-15] MEDS ORDERED: WARFARIN 2 MG TAB PO SCH (18:00)
[2016-08-16] MEDS: traMADol 50 MG TAB PO PRN ×2 (05:19→11:07)
[2016-08-16 07:19] LABS: Anisocytosis Slight; CHCM 35.5; HDW 4.13; Hyperchromasia Slight; MCH 35.5 pg (25.0-35.0); MCHC 35.4 g/dL (31.0-37.0); Macrocytosis Slight; Mean Platelet Volume 8.8; Poikilocytosis Moderate; RDW 16.4 % (11.5-15.5); WBC 14.3 k/uL (3.8-10.6)
[2016-08-16 07:24] LABS: INR 2.9 (<1.1); Prothrombin Time 28.4 sec (9.0-12.0)
[2016-08-16] MEDS: FAMOTIDINE 20 MG TAB PO SCH ×2 (07:34→21:56)
[2016-08-16] MEDS: METOPROLOL TARTRATE 12.5 MG TAB PO SCH ×2 (07:34→21:56)
[2016-08-16] MEDS: ATORVASTATIN 40 MG TAB PO SCH (07:35)
[2016-08-16] MEDS: ASPIRIN 81 MG CHEW PO SCH (07:35)
[2016-08-16] MEDS: SOTALOL 80 MG TAB PO SCH ×2 (07:35→21:57)
[2016-08-16] MEDS: MULTIVITAMINS, THERA 1 EACH TAB PO SCH (07:35)
[2016-08-16] MEDS: CLOPIDOGREL 75 MG TAB PO SCH (07:36)
[2016-08-16] MEDS: LACTULOSE 20 GM/30 ML CUP PO SCH ×2 (07:36→21:56)
[2016-08-16] MEDS: FUROSEMIDE 20 MG TAB PO SCH (07:36)
[2016-08-16 07:37] LABS: Anion Gap 10 mmol/L; Blood Urea Nitrogen 27 mg/dL (9-20); Calcium 8.5 mg/dL (8.4-10.2); Carbon Dioxide 28 mmol/L (22-30); Chloride 103 mmol/L (98-107); Glucose 142 mg/dL (74-99); Non-African American GFR(MDRD) >60 (>60 ml/min/1.73 sqM); Potassium 3.8 mmol/L (3.5-5.1); Sodium 141 mmol/L (137-145)
--- NOTE | 2016-08-16 09:19 | P.PN ---
Subjective Principal diagnosis: Right femoral neck fracture s/p right hip hemiarthroplasty Patient is an 85-year-old male seen at bedside today. He is s/p right hip hemiarthroplasty performed by Dr. Orellana on 08/12/2016. He has no new or increased pain and appears to be controlled. He denies any new numbness or tingling. He denies calf pain. He denies any new complaints. Review of systems is negative for fever, chills, chest pain, shortness breath, nausea, vomiting, dizziness, slurred speech or other. Objective - Vital Signs Vital signs: Vital Signs Temp 97.8 F 08/16/16 07:18 Pulse 84 08/16/16 07:18 Resp 14 08/16/16 07:18 BP 105/51 08/16/16 07:18 Pulse Ox 95 08/16/16 08:11 Intake & Output 08/15/16 08/16/16 08/16/16 18:59 06:59 18:59 Intake Total 590 Output Total 500 300 Balance -500 290 Intake: Oral 590 Output: Urine 500 300 Straight 500 Other: Voiding Method Indwelling Catheter Indwelling Catheter # Bowel Movements 1 - Exam Inspection of the right lower extremity shows a benign surgical wound. There is no active bleeding or drainage. Sensation to light touch is intact throughout the right lower extremity. He has active motor with dorsiflexion and plantarflexion of the ankle, foot and toes. 1+ dorsalis pedis pulses present and less than 2 second cap refill is present. Calf is soft and nontender. - Constitutional General appearance: Present: no acute distress - Psychiatric Psychiatric: Present: A&O x's 3, appropriate affect, intact judgment & insight - Labs CBC & Chem 7: 08/16/16 06:55 08/16/16 06:55 Labs: Abnormal Lab Results - Last 24 Hours (Table) 08/16/16 08/16/16 08/16/16 Range/Units 06:55 06:55 06:55 WBC 14.3 H (3.8-10.6) k/uL RBC 3.10 L (4.30-5.90) m/uL Hgb 11.0 L (13.0-17.5) gm/dL Hct 31.0 L (39.0-53.0) % MCH 35.5 H (25.0-35.0) pg RDW 16.4 H (11.5-15.5) % PT 28.4 H (9.0-12.0) sec BUN 27 H (9-20) mg/dL Glucose 142 H (74-99) mg/dL Assessment and Plan (1) Closed right hip fracture Narrative/Plan: He'll continue with routine post op orthopedic protocol including pain management, weightbearing as tolerated, wound care, neurovascular checks, DVT prophylaxis per cardiology and internal medicine, and medical management. Orthopedically he is stable and may be transferred to an ECF when cleared by internal medicine/cardiology. Status: Acute Time with Patient: Less than 30
[2016-08-16] MEDS: CALCITONIN 200 USP/1 NASAL SPRAY 3.7ML BTL NASAL SCH (11:29)
--- NOTE | 2016-08-16 11:32 | PN ---
DATE OF SERVICE: 08/15/2016 An 85-year-old admitted for right hip arthroplasty. The patient was also treated for non-ST elevated myocardial infarction. Received cardiac consideration. There is no significant clinical change compared to yesterday. Medications are reviewed. PHYSICAL EXAMINATION: Temperature 97.2, pulse 65, respirations 16, blood pressure is 100/56. GENERAL: Patient is alert and oriented times 2 to 3. Looks pretty much the same and looks the same as yesterday. HEENT: Pupils are round and equally reacting to light. EOMI. No scleral icterus. No conjunctival pallor. Normocephalic, atraumatic. No pharyngeal erythema. No thyromegaly. CARDIOVASCULAR: S1 and S2 present. No murmurs, rubs, or gallops. PULMONARY: Chest is clear to auscultation, no wheezing or crackles. ABDOMEN: Soft, nontender, nondistended, normoactive bowel sounds. No palpable organomegaly. MUSCULOSKELETAL: No joint swelling or deformity. EXTREMITIES: No cyanosis, clubbing, or pedal edema. NEUROLOGICAL: Gross neurological examination did not reveal any focal deficits. SKIN: No rashes. LABORATORY DATA: INR is 2.3. The patient will be started on 2 mg of Coumadin. ASSESSMENT AND PLAN: 1. Non-ST elevation myocardial infarction, status post cardiac catheterization and stenting. 2. Hip fracture, status post surgical correction. 3. Atrial fibrillation and ischemic cardiomyopathy, chronic systolic dysfunction. Patient is euvolemic at this point of time. 4. Toxic encephalopathy secondary to medications, which improved. ( ) discontinued. 5. Hematuria, which resolved
--- NOTE | 2016-08-16 13:14 | P.PN ---
Subjective Principal diagnosis: Acute coronary syndrome This is a pleasant 85-year-old gentleman with known history of coronary artery disease and prior coronary artery bypass grafting as well as hypertension and dyslipidemia presented initially to [facility] after he had a syncope at home. He was ruled in for acute coronary syndrome. He underwent a heart catheterization from the right groin which showed severe disease involving the proximal and distal anastomosis of SVG to diagonal branch. He underwent successful stenting of the proximal and distal anastomosis with a good angiographic results. The patient underwent hip surgery 2 days ago. From the cardiovascular standpoint overview, he denies having any chest pain or discomfort. The blood pressure has been on the low side. We'll continue the current medical treatment and continue monitoring the blood pressure and heart rates. Objective - Vital Signs Vital signs: Vital Signs Temp 97.8 F 08/16/16 07:18 Pulse 84 08/16/16 07:18 Resp 14 08/16/16 07:18 BP 105/51 08/16/16 07:18 Pulse Ox 95 08/16/16 08:11 Intake & Output 08/15/16 08/16/16 08/16/16 18:59 06:59 18:59 Intake Total 590 Output Total 500 300 Balance -500 290 Intake: Oral 590 Output: Urine 500 300 Straight 500 Other: Voiding Method Indwelling Catheter Indwelling Catheter Indwelling Catheter # Bowel Movements 1 - Labs CBC & Chem 7: 08/16/16 06:55 08/16/16 06:55 Labs: Abnormal Lab Results - Last 24 Hours (Table) 08/16/16 08/16/16 08/16/16 Range/Units 06:55 06:55 06:55 WBC 14.3 H (3.8-10.6) k/uL RBC 3.10 L (4.30-5.90) m/uL Hgb 11.0 L (13.0-17.5) gm/dL Hct 31.0 L (39.0-53.0) % MCH 35.5 H (25.0-35.0) pg RDW 16.4 H (11.5-15.5) % PT 28.4 H (9.0-12.0) sec BUN 27 H (9-20) mg/dL Glucose 142 H (74-99) mg/dL Assessment and Plan Plan: Assessment #1 acute coronary event #2 status post fall and hip fracture #3 known CAD #4 status post PCI of the SVG to diagonal #5 cardiomyopathy Plan #1 continue the current dose of metoprolol #2 continue dual antiplatelet therapy #3 follow-up with the patient
[2016-08-16 14:48] LABS: Appearance,Urine Cloudy (Clear); Bacteria,Urine Rare /hpf; Bilirubin,Urine Negative (Negative); Glucose,Urine (UA) Negative (Negative); Ketones,Urine Negative (Negative); Leukocyte Esterase,Urine Large (Negative); Mucus,Urine Rare /hpf; Nitrite,Urine Negative (Negative); PH, Urine 5.5 (5.0-8.0); Particle Count 9839; Protein,Urine 1+ (Negative); RBC,Urine >182 /hpf (0-5); Specific Gravity,Urine 1.019 (1.001-1.035); UA Billing (MACRO vs. MICRO) MICRO; WBC,Urine 79 /hpf (0-5)
--- NOTE | 2016-08-16 19:11 | XR ---
EXAMINATION TYPE: XR chest 1V DATE OF EXAM: 08/16/2016 7:05 PM COMPARISON: 08/14/2016 HISTORY: Pneumonia. Short of breath. TECHNIQUE: Single frontal view of the chest is obtained. FINDINGS: There is no heart failure nor confluent pneumonic infiltrate. There are no hilar masses. C ostophrenic angles are clear. There are sternal wires. There are chest leads. IMPRESSION: No active cardiopulmonary disease. No change.
[2016-08-16] MEDS: TAMSULOSIN 0.4 MG CAP.ER.24H PO SCH (21:56)
[2016-08-17 06:09] VITALS: RESP 16
[2016-08-17 07:22] LABS: Anisocytosis Slight; Basophils % (A) 0 %; CH 34.9; CHCM 34.3; Eosinophils # (A) 0.2 k/uL (0-0.7); Eosinophils % (A) 2 %; HCT 33.2 % (39.0-53.0); HDW 4.19; Luc # (Auto) 0.13; Luc % (Auto) 1; Lymphocytes # (A) 1.1 k/uL (1.0-4.8); Lymphocytes % (A) 10 %; MCH 34.2 pg (25.0-35.0); MCHC 33.2 g/dL (31.0-37.0); Macrocytosis Moderate; Monocytes # (A) 0.4 k/uL (0-1.0); Monocytes % (A) 4 %; Neutrophils # (A) 8.9 k/uL (1.3-7.7); Neutrophils % (A) 83 %; Poikilocytosis Moderate; RBC 3.22 m/uL (4.30-5.90); RDW 16.9 % (11.5-15.5); WBC 10.8 k/uL (3.8-10.6)
[2016-08-17 07:30] LABS: INR 2.6 (<1.1); Prothrombin Time 24.9 sec (9.0-12.0)
[2016-08-17 08:11] LABS: ALT 61 U/L (21-72); AST 51 U/L (17-59); Alkaline Phosphatase 74 U/L (38-126); Anion Gap 12 mmol/L; Blood Urea Nitrogen 31 mg/dL (9-20); Calcium 8.8 mg/dL (8.4-10.2); Carbon Dioxide 27 mmol/L (22-30); Chloride 103 mmol/L (98-107); Glucose 120 mg/dL (74-99); Non-African American GFR(MDRD) >60 (>60 ml/min/1.73 sqM); Potassium 3.9 mmol/L (3.5-5.1); Sodium 142 mmol/L (137-145); Total Bilirubin 1.7 mg/dL (0.2-1.3); Total Protein 5.6 g/dL (6.3-8.2)
[2016-08-17] MEDS: ATORVASTATIN 40 MG TAB PO SCH (08:32)
[2016-08-17] MEDS: FAMOTIDINE 20 MG TAB PO SCH (08:32)
[2016-08-17] MEDS: METOPROLOL TARTRATE 12.5 MG TAB PO SCH (08:32)
[2016-08-17] MEDS: SOTALOL 80 MG TAB PO SCH (08:32)
[2016-08-17] MEDS: CLOPIDOGREL 75 MG TAB PO SCH (08:32)
[2016-08-17] MEDS: MULTIVITAMINS, THERA 1 EACH TAB PO SCH (08:32)
[2016-08-17] MEDS: FUROSEMIDE 20 MG TAB PO SCH (08:33)
[2016-08-17] MEDS: LACTULOSE 20 GM/30 ML CUP PO SCH (08:33)
[2016-08-17] MEDS: CALCITONIN 200 USP/1 NASAL SPRAY 3.7ML BTL NASAL SCH (08:33)
[2016-08-17] MEDS: ASPIRIN 81 MG CHEW PO SCH (08:33)
--- NOTE | 2016-08-17 08:45 | PN ---
An 85-year-old admitted for right hip arthroplasty. Patient also had [id number] myocardial infarction. Patient underwent cardiac catheterization and stenting for that and patient is clinically doing fairly okay but patient states he is tired and patient has a low grade fever and worsening leukocytosis. Because of which, I have concern of sepsis. Because of which, will obtain septic workup with the urine cultures, chest x-ray and blood cultures and will monitor him for one more night and possibility of discharge tomorrow. Regarding his Coumadin, will hold off Coumadin because of his INR being 2.9. I am expecting it to go up even higher. Patient may need 1 to 1.5 mg of Coumadin upon discharge. REVIEW OF SYSTEMS: CARDIOVASCULAR: No chest pain, no orthopnea, no PND, no palpitations. PULMONARY: Denied any shortness of breath. No cough or hemoptysis. GASTROINTESTINAL: No diarrhea, nausea or vomiting. No abdominal pain. Normoactive bowel sounds. NEUROLOGIC: No headaches, no weakness, no numbness. Medications were reviewed. PHYSICAL EXAMINATION: VITAL SIGNS: Patient had a low grade fever of 99.8, presently 97.8, pulse of 84, respiratory rate of 14, blood pressure 105/51, saturating at 95% on 1.5 L of O2 by nasal cannula. GENERAL EXAMINATION: Patient appears to be lethargic, weak. HEENT: Pupils are round and equally reacting to light. EOMI. No scleral icterus. No conjunctival pallor. Normocephalic, atraumatic. No pharyngeal erythema. No thyromegaly. CARDIOVASCULAR: S1 and S2 present. No murmurs, rubs, or gallops. PULMONARY: Chest is clear to auscultation, no wheezing or crackles. ABDOMEN: Soft, nontender, nondistended, normoactive bowel sounds. No palpable organomegaly. MUSCULOSKELETAL: No joint swelling or deformity. EXTREMITIES: No cyanosis, clubbing, or pedal edema. NEUROLOGICAL: Gross neurological examination did not reveal any focal deficits. SKIN: No rashes. ASSESSMENT AND PLAN: 1. Gei-UY-ozqtrhuio myocardial infarction, status post cardiac catheterization and stenting. 2. Hip fracture, status post surgical correction. 3. Worsening leukocytosis with low-grade fever. Management as mentioned above. 4. Ischemic cardiomyopathy, chronic systolic dysfunction. Patient is fairly euvolemic and patient is on 20 mg oral Lasix which will be continued. 5. Patient is on Coumadin for deep venous thrombosis prophylaxis per Orthopedic Surgery. 6. Toxic encephalopathy. 7. Hematuria which resolved. Patient is on dual antiplatelet therapy as well as Coumadin. Patient has definitely had some bleeding which needs to watched in subacute rehabilitation.
--- NOTE | 2016-08-17 09:35 | P.PN ---
Subjective Principal diagnosis: Right femoral neck fracture s/p right hip hemiarthroplasty Patient is an 85-year-old male seen at bedside today. He is s/p right hip hemiarthroplasty performed by Dr. Orellana on 08/12/2016. He denies any new complaints. He denies any new numbness or tingling. He denies calf pain. Review of systems is negative for fever, chills, chest pain, shortness breath, nausea, vomiting, dizziness, slurred speech or other. Objective - Vital Signs Vital signs: Vital Signs Temp 97.5 F L 08/17/16 07:00 Pulse 79 08/17/16 07:00 Resp 16 08/17/16 07:00 BP 105/61 08/17/16 07:00 Pulse Ox 92 L 08/17/16 07:00 Intake & Output 08/16/16 08/17/16 08/17/16 18:59 06:59 18:59 Intake Total 240 Output Total 500 Balance 240 -500 Intake: Oral 240 Output: Urine 500 Other: Voiding Method Indwelling Catheter - Exam Inspection of the right lower extremity shows a benign surgical wound. There is no active bleeding or drainage. Sensation to light touch is intact throughout the right lower extremity. He has active motor with dorsiflexion and plantarflexion of the ankle, foot and toes. 1+ dorsalis pedis pulses present and less than 2 second cap refill is present. Calf is soft and nontender. - Constitutional General appearance: Present: no acute distress - Psychiatric Psychiatric: Present: A&O x's 3, appropriate affect, intact judgment & insight - Labs CBC & Chem 7: 08/17/16 06:58 08/17/16 06:58 Labs: Abnormal Lab Results - Last 24 Hours (Table) 08/16/16 08/17/16 08/17/16 Range/Units 14:40 06:58 06:58 WBC 10.8 H (3.8-10.6) k/uL RBC 3.22 L (4.30-5.90) m/uL Hgb 11.0 L (13.0-17.5) gm/dL Hct 33.2 L (39.0-53.0) % MCV 103.0 H (80.0-100.0) fL RDW 16.9 H (11.5-15.5) % Neutrophils # 8.9 H (1.3-7.7) k/uL PT 24.9 H (9.0-12.0) sec BUN (9-20) mg/dL Glucose (74-99) mg/dL Total Bilirubin (0.2-1.3) mg/dL Total Protein (6.3-8.2) g/dL Albumin (3.5-5.0) g/dL Urine Protein 1+ H (Negative) Urine Blood Large H (Negative) Ur Leukocyte Esterase Large H (Negative) Urine RBC >182 H (0-5) /hpf Urine WBC 79 H (0-5) /hpf Urine Bacteria Rare H (None) /hpf Hyaline Casts 11 H (0-2) /lpf Urine Mucus Rare H (None) /hpf 08/17/16 Range/Units 06:58 WBC (3.8-10.6) k/uL RBC (4.30-5.90) m/uL Hgb (13.0-17.5) gm/dL Hct (39.0-53.0) % MCV (80.0-100.0) fL RDW (11.5-15.5) % Neutrophils # (1.3-7.7) k/uL PT (9.0-12.0) sec BUN 31 H (9-20) mg/dL Glucose 120 H (74-99) mg/dL Total Bilirubin 1.7 H (0.2-1.3) mg/dL Total Protein 5.6 L (6.3-8.2) g/dL Albumin 2.6 L (3.5-5.0) g/dL Urine Protein (Negative) Urine Blood (Negative) Ur Leukocyte Esterase (Negative) Urine RBC (0-5) /hpf Urine WBC (0-5) /hpf Urine Bacteria (None) /hpf Hyaline Casts (0-2) /lpf Urine Mucus (None) /hpf Microbiology - Last 24 Hours (Table) 08/16/16 14:40 Urine Culture - Preliminary Urine,Catheterized Assessment and Plan (1) Closed right hip fracture Narrative/Plan: Continue with routine post op orthopedic protocol including pain management, weightbearing as tolerated, wound care, neurovascular checks, DVT prophylaxis per cardiology and internal medicine, and medical management. He may be transferred to an F from an orthopedic standpoint. Status: Acute Time with Patient: Less than 30
[2016-08-17 14:58] VITALS: BP 112/73; PULSE 83; TEMP 98.1
--- NOTE | 2016-08-17 15:18 | CDI ---
In responding to this query, please exercise your independent professional judgment. The [facility] Coding Staff and Clinical Documentation Specialists appreciate your assistance in clarifying documentation, maintaining compliance with coding guidelines, accurately documenting patients condition and capturing severity of illness. The fact that a question is asked does not imply that any particular answer is desired or expected. Communication forms are a method of clarifying documentation and are not made part of the Legal Health Record. Thank you in advance for your clarification. Last Revision, July 2015 Nish Dhaliwal [address] [facility] [place] [address] Documentation Clarification Form Date: 08/13/2016 3:22:00 PM From: Almaz Oconnor Admit Date: 08/05/2016 3:16:00 PM Patient Name: Rambo Avalos Visit Number: [id number] Discharge Date: Dr. Jensen Orellana Documentation in the Operative Report included : Yas LDFX 14 mm stem, 52 diameter head History/Risk factors: Right displaced intracapsular femoral neck fracture Pre-Operative Diagnosis: Same Postoperative Diagnosis: Same Clinical Indicators: Patient sustained a fall with resulting hip fracture. Treatment: Right hip Hemiarthroplasty In order to capture the severity of condition, please specify the following: Further clarify device(s) used Synthetic Substitute Synthetic Substitute, Ceramic (includes ceramic on ceramic) Synthetic Substitute, Metal (includes metal on metal) Please document as an addendum to your operative report in order to capture severity of illness and risk of mortality. FYI: Press F11 to launch patient chart Place X here if this finding has no clinical significance, is not applicable or if you are not able to provide any additional documentation. JONATHAN
[2016-08-17] MEDS ORDERED: LEVOFLOXACIN 500 MG TAB PO STA (15:49)
--- NOTE | 2016-08-17 16:55 | DS ---
DATE OF ADMISSION: 08/05/2016 DATE OF DISCHARGE: 08/17/2016 DISCHARGE DIAGNOSES: 1. Acute non-ST elevated myocardial infarction, status post cardiac catheterization and stent placement. 2. Right hip total arthroplasty status post fracture from fall on admission. 3. History of coronary artery disease status post coronary artery bypass grafting in the past. 4. History of paroxysmal atrial fibrillation, was on anticoagulation and rate maintained on sotalol. 5. Ischemic cardiomyopathy with chronic systolic dysfunction. 6. Leukocytosis and fever suspect possible urinary tract infection. The patient will be continued on Levofloxacin for total of 5 days and urine culture to be followed up at [facility]. 7. Acute metabolic and toxic encephalopathy secondary to infection. 8. Hematuria, resolved now. 9. Follow up hemoglobin and hematocrit at [facility]. HOSPITAL COURSE: An 85-year-old male with known history of coronary artery disease underwent coronary artery bypass graft, admitted to the hospital with multiple falls and found to have right hip closed fractured and patient underwent a right hip arthroplasty and the patient also found to have elevated troponin levels. For that reason, patient was initially transferred from [facility] to [facility] for further elevation by cardiology. Patient's underwent cardiac catheterization with stent placement and the patient had a prolonged course in the hospital. Patient is being continued on PT, OT and the patient also had hematuria which is resolved now. Patient was on dual antiplatelet therapy as well as Coumadin. Currently hemoglobin is stable. Otherwise yesterday patient developed leukocytosis and mild fever for which the patient had a chest x-ray and blood cultures which have been negative and urine culture is in the process. UA showed cloudy with large leukocyte esterase and greater than 180 WBC's. Patient is being started on antibiotics. The patient was started on antibiotics in the form of levofloxacin 500 mg daily and will be continued for a total of 5 days and patient urine cultures are not back yet. Needs to be followed at the [facility] to titrate down the antibiotics. Otherwise, patient denied any abdominal pain. No dysuria noted. INR is therapeutic today. Patient will be continued on Coumadin. Patient needs to follow-up with cardiology and orthopedics as an outpatient. Otherwise, patient will be continued on a Overton catheter at this time and will need a trial void once his clinical status improves and able to ambulate better at [facility]. Until that time the patient will be continued on Flomax. Otherwise, patient is stable to be discharged to [facility]. DISCHARGE PHYSICAL EXAMINATION: An 85-year-old male lying in the bed. Awake, alert, oriented, x 2 to 3, appears to be in no apparent distress. VITALS: Blood pressure is 112/73, pulse 83, respirations 16, temperature afebrile. Pulse ox is saturating at 96% on room air. The patient will be continued on both metoprolol and sotalol as per cardiology recommendations. PHYSICAL EXAMINATION: LUNGS: Bilateral air entry. No wheeze or crackles. ABDOMEN: Soft, nontender. Bowel sounds present. BACCARAT DEALER: Awake, alert, oriented x2 to 3. No focal deficit. The patient will be continued on Overton catheter. LABORATORY DATA: Reviewed. WBC 10.8, hemoglobin 11.0, platelet is 185 and INR 2.6 and electrolytes within normal limits. Albumin 2.6. Patient will be continued on pain management. Discharge physical examination done. Discharge medications include: 1. Warfarin 2.5 mg p.o. Tuesday and . Warfarin 5 mg p.o. Tuesday, Tuesday, , Tuesday and Tuesday. 2. Aspirin 81 mg p.o. daily. 3. Atorvastatin 40 mg p.o. daily. 4. Plavix 75 mg p.o. daily. 5. Pepcid 20 mg p.o. b.i.d. 6. Lactulose 30 grams p.o. b.i.d. p.r.n. for constipation. 7. Levofloxacin 500 mg p.o. daily for 4 days. 8. Metoprolol 12.5 mg p.o. b.i.d. 9. Multivitamins 1 capsule p.o. daily. 10. Nitroglycerin sublingual 0.4 mg p.o. q.5 minutes p.r.n. for chest pain. 11. Sotalol 80 mg p.o. b.i.d. 12. Tamsulosin 0.4 mg p.o. a.c. supper. 13. Tramadol 50 mg q6 hourly p.r.n. for pain. Patient discharged to [facility] in stable condition. Activity as tolerated. Follow with Dr. Napier in 3 weeks, follow-up with Dr. Jensen Orellana in 2 weeks and follow up with physician at [facility]. Note: 1. Please follow up final urine culture report and titrate the antibiotics as needed. 2. Patient will need trial void once he is more ambulatory and Overton catheter can be discontinued at that time. 3. Activity as tolerated. 4. Heart healthy diet. 5. Follow up on Coumadin monitoring. Time taken more than 35 minutes including 18 minutes counseling the patient and coordinating care. JONATHAN
[2016-08-17] MEDS: traMADol 50 MG TAB PO PRN (17:37)
[2016-08-17] MEDS: TAMSULOSIN 0.4 MG CAP.ER.24H PO SCH (17:37)
== END 2016-08-17 18:01 | DRG 248 ==
LOC: 6SEL 15:16 → 3SUR 08-12 16:33
PROVIDERS: ADMIT Internal Medicine; ATTEND Internal Medicine
PROC: B3101ZZ Fluoroscopy of Thoracic Aorta using Low Osmolar Contrast (ICD-10-PCS; 2016-08-06)
PROC: B2131ZZ Fluoroscopy of Multiple Coronary Artery Bypass Grafts using Low Osmolar Contrast (ICD-10-PCS; 2016-08-10)
PROC: B2181ZZ Fluoroscopy of Left Internal Mammary Bypass Graft using Low Osmolar Contrast (ICD-10-PCS; 2016-08-10)
PROC: B2111ZZ Fluoroscopy of Multiple Coronary Arteries using Low Osmolar Contrast (ICD-10-PCS; 2016-08-10)
PROC: 02703EZ Dilation of Coronary Artery, One Artery with Two Intraluminal Devices, Percutaneous Approach (ICD-10-PCS; principal; 2016-08-10 07:40)
PROC: 4A023N7 Measurement of Cardiac Sampling and Pressure, Left Heart, Percutaneous Approach (ICD-10-PCS; 2016-08-10 07:40)
PROC: 0SRR019 Replacement of Right Hip Joint, Femoral Surface with Metal Synthetic Substitute, Cemented, Open Approach (ICD-10-PCS; 2016-08-12)
DX: I21.4 Non-ST elevation (NSTEMI) myocardial infarction (principal); G92 Toxic encephalopathy; S72.011A Unspecified intracapsular fracture of right femur, initial encounter for closed fracture; I25.82 Chronic total occlusion of coronary artery; I50.22 Chronic systolic (congestive) heart failure; N39.0 Urinary tract infection, site not specified; I48.0 Paroxysmal atrial fibrillation; I11.0 Hypertensive heart disease with heart failure; R55 Syncope and collapse; E78.5 Hyperlipidemia, unspecified; I25.810 Atherosclerosis of coronary artery bypass graft(s) without angina pectoris; D72.829 Elevated white blood cell count, unspecified; I25.5 Ischemic cardiomyopathy; R31.0 Gross hematuria; Z95.1 Presence of aortocoronary bypass graft; I25.10 Atherosclerotic heart disease of native coronary artery without angina pectoris; R33.9 Retention of urine, unspecified; R06.2 Wheezing; I73.9 Peripheral vascular disease, unspecified; I25.2 Old myocardial infarction; M81.0 Age-related osteoporosis without current pathological fracture; T40.605A Adverse effect of unspecified narcotics, initial encounter; K57.90 Diverticulosis of intestine, part unspecified, without perforation or abscess without bleeding; K59.00 Constipation, unspecified; H26.9 Unspecified cataract; R29.6 Repeated falls; M16.11 Unilateral primary osteoarthritis, right hip; N42.9 Disorder of prostate, unspecified; R50.9 Fever, unspecified; R53.1 Weakness; Z79.01 Long term (current) use of anticoagulants; Z85.038 Personal history of other malignant neoplasm of large intestine; Z87.891 Personal history of nicotine dependence; Z86.79 Personal history of other diseases of the circulatory system; Z91.81 History of falling; Z79.899 Other long term (current) drug therapy; Z71.3 Dietary counseling and surveillance; Z90.49 Acquired absence of other specified parts of digestive tract; Z87.81 Personal history of (healed) traumatic fracture; Z87.09 Personal history of other diseases of the respiratory system; Z86.010 Personal history of colon polyps; Z87.19 Personal history of other diseases of the digestive system; Z84.1 Family history of disorders of kidney and ureter; Z96.0 Presence of urogenital implants; W01.198A Fall on same level from slipping, tripping and stumbling with subsequent striking against other object, initial encounter; Y93.9 Activity, unspecified; Y92.009 Unspecified place in unspecified non-institutional (private) residence as the place of occurrence of the external cause
CPT/HCPCS: 71010; 71020; 73501; 73502; 80048; 80053; 81001; 82550; 82553; 83735; 83880; 84484; 85025; 85027; 85610; 85730; 86850; 86900; 86901; 87040; 87086; 88305; 88311; 92928; 93306; 93454; 93459; 94760

== ENCOUNTER 2016-08-19 06:28 | Emergency (ER) | payer MEDICARE ==
[2016-08-19] MEDS ORDERED: SODIUM CHLORIDE 0.9% 1,000 ML IV ONE (07:14)
--- NOTE | 2016-08-19 07:18 | ED ---
Fall HPI - General Chief Complaint: Fall Stated Complaint: Fall Time Seen by Provider: 08/19/16 07:00 Source: patient, EMS, RN notes reviewed, old records reviewed Mode of arrival: EMS - History of Present Illness Initial Comments: This is a 85-year-old male with a history of a right hip replacement and a recent non-ST elevation MN who is brought in by EMS for evaluation of right hip after he was found lying next to his bed. He states he slipped out of bed he denies any pain goes reportedly has right hip pain and some questionable shortening or rotation of his right lower extremity. He denies any head neck or back pain no chest pain shortness breath or other symptoms. MD Complaint: fall - Related Data Home Medications Medication Instructions Recorded Confirmed Warfarin [Coumadin] 2.5 mg PO SUTH@1700 08/05/16 08/19/16 Warfarin [Coumadin] 5 mg PO MOTUWEFRSA@1700 08/05/16 08/19/16 Atorvastatin [Lipitor] 40 mg PO HS@2100 08/19/16 08/19/16 Bisacodyl [Dulcolax] 10 mg RECTAL DAILY PRN 08/19/16 08/19/16 Clopidogrel [Plavix] 75 mg PO DAILY@0800 08/19/16 08/19/16 Famotidine [Pepcid] 20 mg PO BID@0800,1700 08/19/16 08/19/16 Levofloxacin [Levaquin] 500 mg PO DAILY@0800 08/19/16 08/19/16 Magnesium Hydroxide [Milk of 2,400 mg PO DAILY PRN 08/19/16 08/19/16 Magnesia] Menthol/Zinc Oxide [Calmoseptine 1 applic TOPICAL BID 08/19/16 08/19/16 Ointment] Metoprolol Tartrate [Lopressor] 12.5 mg PO BID@0800,1700 08/19/16 08/19/16 Multivitamins, Thera [Multivitamin 1 tab PO DAILY@1700 08/19/16 08/19/16 (formulary)] Na Phos,M-B/Na Phos,Di-Ba [Fleet 133 ml RECTAL DAILY PRN 08/19/16 08/19/16 Adult] Sotalol [Betapace] 80 mg PO BID@0800,1700 08/19/16 08/19/16 Tamsulosin [Flomax] 0.4 mg PO HS@2130 08/19/16 08/19/16 Previous Rx's Medication Instructions Recorded Aspirin 81 mg PO DAILY #30 chew 08/17/16 Lactulose [Cephulac] 30 gm PO BID PRN #300 ml 08/17/16 Nitroglycerin Sl Tabs [Nitrostat] 0.4 mg SUBLINGUAL Q5M PRN #50 tab 08/17/16 traMADol HCl [Ultram] 50 mg PO Q6H PRN #20 tab 08/17/16 Allergies Allergy/AdvReac Type Severity Reaction Status Date / Time No Known Allergies Allergy Verified 08/19/16 07:42 Review of Systems ROS Statement: Those systems with pertinent positive or pertinent negative responses have been documented in the HPI. ROS Other: All systems not noted in ROS Statement are negative. Past Medical History Past Medical History: Atrial Fibrillation, Asthma, Coronary Artery Disease (CAD) , Myocardial Infarction (MN), Osteoarthritis (OA), Prostate Disorder Additional Past Medical History / Comment(s): 08-05-16pt came from [facility]-fall/rt fenoral head fx, c/p. other past medical hx include: diverticulosis, colon cancer 1977(had sx-no chemo or radiation), gallstones(had sx),occ constipation, rt eye cataract, asthma as a child, hayfever, oa- rt hip Last Myocardial Infarction Date:: 1988 History of Any Multi-Drug Resistant Organisms: None Reported Past Surgical History: Bowel Resection, Cholecystectomy, Coronary Bypass/CABG, Heart Catheterization, Hernia Repair, Tonsillectomy Additional Past Surgical History / Comment(s): colonoscopies,polypectomy, aaa repair 2000, triple vessel cabg 1988, lt carotid endarterectomy,rt inguinal hernia, "has teresa in colon since sx" Past Anesthesia/Blood Transfusion Reactions: No Reported Reaction Additional Past Anesthesia/Blood Transfusion Reaction / Comment(s): 2000- received blood -no reaction Past Psychological History: No Psychological Hx Reported Additional Psychological History / Comment(s): pt lives alone in own home, no pets,(a modular 1 level w/ 4 steps up to door).uses a walker when up.no other medical equipment at home. no outside services. still drives-goes out to breakfast every am.pt served in the [employer] and worked at [employer] till retired. Smoking Status: Former smoker Past Alcohol Use History: None Reported Additional Past Alcohol Use History / Comment(s): quit smoking 1985 stated smoked between 5-10 years 1ppd. Past Drug Use History: None Reported - Past Family History Mother Family Medical History: No Reported History Additional Family Medical History / Comment(s): from "natural causes" Father Additional Family Medical History / Comment(s): kidney failure General Exam - General Exam Comments Initial Comments: This a well-developed well-nourished awake alert oriented male he does demonstrate a [place] Coma Scale of 14 Limitations: no limitations General appearance: alert, in no apparent distress Head exam: Present: atraumatic, normocephalic, normal inspection Eye exam: Present: normal appearance, PERRL, EOMI. Absent: scleral icterus, conjunctival injection, periorbital swelling ENT exam: Present: mucous membranes dry Neck exam: Present: normal inspection. Absent: tenderness, meningismus, lymphadenopathy Respiratory exam: Present: normal lung sounds bilaterally. Absent: respiratory distress, wheezes, rales, rhonchi, stridor Cardiovascular Exam: Present: regular rate, normal rhythm, normal heart sounds. Absent: systolic murmur, diastolic murmur, rubs, gallop, clicks GI/Abdominal exam: Present: soft, normal bowel sounds. Absent: distended, tenderness, guarding, rebound, rigid Extremities exam: Present: full ROM, normal capillary refill, other ( Examination right lower extremity demonstrates well-healed surgical scar over the right hip with Steri-Strips are intact. No definite shortening or rotation. There is some residual ecchymosis noted postsurgical.). Absent: tenderness, pedal edema, joint swelling, calf tenderness Back exam: Present: normal inspection Neurological exam: Present: alert, CN II-XII intact. Absent: motor sensory deficit Psychiatric exam: Present: normal affect, normal mood Skin exam: Present: warm, dry, intact, normal color. Absent: rash Course Vital Signs 08/19/16 08/19/16 08/19/16 06:29 07:18 08:00 Pulse Rate 78 73 65 Respiratory 20 14 16 Rate Blood Pressure 91/52 99/55 100/59 O2 Sat by Pulse 97 89 L 100 Oximetry 08/19/16 08:52 Pulse Rate 69 Respiratory 16 Rate Blood Pressure 110/59 O2 Sat by Pulse 100 Oximetry Medical Decision Making - Medical Decision Making Patient is feeling improved after IV hydration. I did discuss the findings with him he will be discharged back to his snf. He again reiterates that he slid out of bed he did not actually fall. So complains of no pain. - Lab Data Result diagrams: 08/19/16 07:55 08/19/16 07:55 Lab Results 08/19/16 08/19/16 08/19/16 Range/Units 07:55 07:55 07:55 WBC 8.7 (3.8-10.6) k/uL RBC 3.27 L (4.30-5.90) m/uL Hgb 11.4 L (13.0-17.5) gm/dL Hct 33.6 L (39.0-53.0) % MCV 102.6 H (80.0-100.0) fL MCH 34.7 (25.0-35.0) pg MCHC 33.8 (31.0-37.0) g/dL RDW 17.4 H (11.5-15.5) % Plt Count 236 (150-450) k/uL Neutrophils % 81 % Lymphocytes % 13 % Monocytes % 4 % Eosinophils % 2 % Basophils % 0 % Neutrophils # 7.1 (1.3-7.7) k/uL Lymphocytes # 1.1 (1.0-4.8) k/uL Monocytes # 0.3 (0-1.0) k/uL Eosinophils # 0.1 (0-0.7) k/uL Basophils # 0.0 (0-0.2) k/uL Poikilocytosis Moderate Anisocytosis Slight Macrocytosis Moderate PT 19.1 H (9.0-12.0) sec INR 2.0 (<1.1) APTT 24.3 (22.0-30.0) sec Sodium 141 (137-145) mmol/L Potassium 4.5 (3.5-5.1) mmol/L Chloride 103 (98-107) mmol/L Carbon Dioxide 30 (22-30) mmol/L Anion Gap 8 mmol/L BUN 31 H (9-20) mg/dL Creatinine 0.97 (0.66-1.25) mg/dL Est GFR (MDRD) Af Amer >60 (>60 ml/min/1.73 sqM) Est GFR (MDRD) Non-Af >60 (>60 ml/min/1.73 sqM) Glucose 105 H (74-99) mg/dL Calcium 8.9 (8.4-10.2) mg/dL Magnesium 2.1 (1.6-2.3) mg/dL Total Bilirubin 1.9 H (0.2-1.3) mg/dL AST 60 H (17-59) U/L ALT 66 (21-72) U/L Alkaline Phosphatase 73 (38-126) U/L Total Protein 5.5 L (6.3-8.2) g/dL Albumin 2.6 L (3.5-5.0) g/dL - EKG Data -: EKG Interpreted by Me EKG shows normal: sinus rhythm (Sinus rhythm first-degree AV block old inferior changes. ST abnormality noted. Ventricular rate 76 ID interval 224 QRS duration 94 QT/QTC of 14/472. With EKG dated 08/07/2016 no changes seen from that date.) - Radiology Data Radiology results: report reviewed (I did review the imaging and reports no acute findings are seen. The hip appears be unremarkable no evidence of any fractures or dislocations.), image reviewed Disposition Clinical Impression: Fall, Dehydration, History of hip replacement, total Disposition: HOME SELF-CARE Condition: Good Instructions: Fall Prevention for Older Adults (ED), Dehydration (ED)
[2016-08-19 08:13] LABS: Anisocytosis Slight; Basophils % (A) 0 %; CH 35.1; CHCM 34.7; Eosinophils # (A) 0.1 k/uL (0-0.7); Eosinophils % (A) 2 %; HCT 33.6 % (39.0-53.0); HDW 4.41; HGB 11.4 gm/dL (13.0-17.5); Luc # (Auto) 0.12; Luc % (Auto) 1; Lymphocytes # (A) 1.1 k/uL (1.0-4.8); Lymphocytes % (A) 13 %; MCH 34.7 pg (25.0-35.0); MCHC 33.8 g/dL (31.0-37.0); MCV 102.6 fL (80.0-100.0); Macrocytosis Moderate; Mean Platelet Volume 7.4; Monocytes # (A) 0.3 k/uL (0-1.0); Monocytes % (A) 4 %; Neutrophils # (A) 7.1 k/uL (1.3-7.7); Neutrophils % (A) 81 %; Poikilocytosis Moderate; RBC 3.27 m/uL (4.30-5.90); RDW 17.4 % (11.5-15.5); WBC 8.7 k/uL (3.8-10.6); WBC (Perox) 9.15
[2016-08-19 08:22] LABS: Partial Thromboplastin Time 24.3 sec (22.0-30.0); Prothrombin Time 19.1 sec (9.0-12.0)
[2016-08-19 08:33] LABS: ALT 66 U/L (21-72); AST 60 U/L (17-59); Alkaline Phosphatase 73 U/L (38-126); Anion Gap 8 mmol/L; Blood Urea Nitrogen 31 mg/dL (9-20); Calcium 8.9 mg/dL (8.4-10.2); Carbon Dioxide 30 mmol/L (22-30); Chloride 103 mmol/L (98-107); Glucose 105 mg/dL (74-99); Magnesium 2.1 mg/dL (1.6-2.3); Non-African American GFR(MDRD) >60 (>60 ml/min/1.73 sqM); Potassium 4.5 mmol/L (3.5-5.1); Sodium 141 mmol/L (137-145); Total Bilirubin 1.9 mg/dL (0.2-1.3); Total Protein 5.5 g/dL (6.3-8.2)
--- NOTE | 2016-08-19 08:37 | XR ---
EXAMINATION TYPE: XR Hip RT and AP Pelvis DATE OF EXAM: 08/19/2016 8:32 AM COMPARISON: Pelvic and right hip x-ray August 05, 2016. Right hip x-ray August 12, 2016. HISTORY: Pelvic and right hip pain after fall injury. TECHNIQUE: A single AP view of the pelvis is obtained. Two views of the right hip are obtained. FINDINGS: There is no acute fracture/dislocation evident in the pelvis. Surgical clips overlie the p ruma. Sacroiliac joints are maintained. There is moderate axial joint space loss in the left hip red emonstrated. Two views of right hip show no acute fracture or dislocation. Metallic hardware right hip arthroplast y is stable in position. Vascular calcification medially is redemonstrated. IMPRESSION: There is no acute fracture or dislocation in the pelvis or right hip.
--- NOTE | 2016-08-19 08:38 | XR ---
EXAMINATION TYPE: XR chest 2V DATE OF EXAM: 08/19/2016 8:32 AM COMPARISON: Prior chest x-ray August 16, 2016 HISTORY: Chest pain after fall injury. TECHNIQUE: Frontal and lateral views of the chest are obtained. FINDINGS: Post-CABG changes with mediastinal clips and sternal wires is redemonstrated. 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 The cardiac silhouette size is stable and mildly enlarged. The osseous structures are demine ralized. Surgical clips in the left neck are partially imaged. IMPRESSION: Cardiomegaly and chronic parenchymal changes without acute pulmonary process.
[2016-08-19] MEDS ORDERED: SODIUM CHLORIDE 0.9% 1,000 ML IV STA (08:58)
[2016-08-19 10:22] VITALS: BP 108/57; PULSE 76; RESP 18; TEMP 98.6
== END 2016-08-19 11:09 | disposition home or self-care (01) ==
LOC: EC 06:28
DX: E86.0 Dehydration (principal); M25.551 Pain in right hip; I25.2 Old myocardial infarction; I48.91 Unspecified atrial fibrillation; I25.10 Atherosclerotic heart disease of native coronary artery without angina pectoris; M16.11 Unilateral primary osteoarthritis, right hip; Z96.641 Presence of right artificial hip joint; W06.XXXA Fall from bed, initial encounter; Z79.01 Long term (current) use of anticoagulants; Z79.899 Other long term (current) drug therapy; Z79.02 Long term (current) use of antithrombotics/antiplatelets; Z79.82 Long term (current) use of aspirin; Z95.1 Presence of aortocoronary bypass graft; Z87.891 Personal history of nicotine dependence
CPT/HCPCS: 36415; 71020; 73502; 80053; 83735; 85025; 85610; 85730; 93005; 96360; 96361; 99284

== ENCOUNTER → 2016-09-06 | Outpatient (CLI) | payer MEDICARE ==
--- NOTE | 2016-09-06 14:29 | XR ---
EXAMINATION TYPE: XR pelvis AP view, XR Hip Complete 2 views RT DATE OF EXAM: 09/06/2016 12:16 PM COMPARISON: 08/19/2016 HISTORY: 85-year-old male right hip pain, surgical aftercare. FINDINGS: A right hip hemiarthroplasty is demonstrated with mild axial joint space narrowing. Additional mild a xial joint space narrowing of the [place] left hip. Degenerated curvature of the visualized lower lumb ar spine. SI joints appear symmetric and intact as does the pubic symphysis. There is appropriate ali gnment of the right hip. The femoral short stem prosthesis is well seated without periprosthetic frac ture. IMPRESSION: 1. Uncomplicated appearance to the right hip hemiarthroplasty. There is underlying mild degenerative change within the [place] acetabular side of the joint. 2. Additional mild left hip osteoarthrosis. 3. Degenerative curvature of the visualized lower lumbar spine.
== END ==
LOC: RADXRMAIN 11:41
PROVIDERS: ATTEND Orthopaedic Surgery
DX: M16.11 Unilateral primary osteoarthritis, right hip (principal); Z96.641 Presence of right artificial hip joint
CPT/HCPCS: 72170; 73502

== ENCOUNTER 2016-09-09 15:14 | Day surgery (SDC) | payer MEDICARE ==
--- NOTE | 2016-08-27 08:42 | HP ---
DATE OF ADMISSION: 09/09/2016. CHIEF COMPLAINT: Perirectal lesion. HISTORY OF PRESENT ILLNESS: Patient is an 85-year-old male who came to the clinic today from [facility] with the complaints of perirectal lesions. Patient recently broke his hip and apparently this was identified by the nursing staff at the senior living. The patient is nonambulatory. We were unable to complete an examination in the office today because of his ambulatory status and lack of a Isamar lift. The patient has apparently a history of colon cancer many years ago. This was treated with surgical resection per the son. He underwent a recent operative repair of his right hip. He had an NE in the preoperative timing and underwent cardiac catheterization with stent placement and is currently on Plavix. Past medical history is coronary artery disease, dementia, colon cancer. MEDICATIONS: See list. ALLERGIES: None. PHYSICAL EXAM: GENERAL: This is an elderly white male somewhat malnourished appearing. HEENT: Normocephalic. Sclerae anicteric. CHEST: No deformities. ABDOMEN: Soft, nontender, nondistended. IMPRESSION: An 85-year-old male with perirectal lesion. PLAN: Will proceed with a flexible sigmoidoscopy. The risks of bleeding, infection and potential additional procedures required were discussed with the patient and his son. They understand and wish to proceed.
[2016-09-09 12:44] VITALS: RESP 16; TEMP 96.9
--- NOTE | 2016-09-09 15:05 | P.PCN ---
Date of Procedure: 09/09/16 Procedure(s) Performed: PREOPERATIVE DIAGNOSIS: Rectal lesion, bleeding POSTOPERATIVE DIAGNOSIS: Fecal impaction PROCEDURE: Flexible sigmoidoscopy with disimpaction ANESTHESIA: MAC SURGEON: Stephen Coreas M.D. SPECIMENS: None ENDOSCOPIC PROCEDURE: The patient was placed on the endoscopy table in the left decubitus position. The Olympus colonoscope was inserted into the anus and passed under direct visualization to the distal sigmoid colon. The patient had solid stool seen throughout. I was still able despite this to visualize most of the mucosal surfaces fairly well. I was not able to see any neoplastic inflammatory or polypoid lesions. Digital rectal examination was normal. He was impacted to a certain degree and this was evacuated manually. There was a small evidence of a scar in the perianal skin. I suspect he had a wound there that is since healed. This may have been the abnormality that initiated the initial consultation. The patient was taken to the recovery room in stable condition per anesthesia guidelines. RECOMMENDATIONS: Continue stool softeners. Resume diet. Consider colonoscopy if additional evaluation required.
[~2016-09-09 15:14] MED LIST changes: +LACTATED RINGERS 1,000 ML IV ONE; -LACTATED RINGERS 1,000 ML IV SCH
[2016-09-09 16:01] VITALS: BP 103/59; PULSE 63
== END 2016-09-09 16:38 ==
LOC: ORWHC2ENDO 15:14
PROVIDERS: ATTEND Surgery
DX: K56.41 Fecal impaction (principal); K62.9 Disease of anus and rectum, unspecified; Z87.19 Personal history of other diseases of the digestive system; Z85.038 Personal history of other malignant neoplasm of large intestine; I25.10 Atherosclerotic heart disease of native coronary artery without angina pectoris; F03.90 Unspecified dementia, unspecified severity, without behavioral disturbance, psychotic disturbance, mood disturbance, and anxiety; I25.2 Old myocardial infarction; Z95.1 Presence of aortocoronary bypass graft; I48.91 Unspecified atrial fibrillation; Z79.01 Long term (current) use of anticoagulants; Z79.02 Long term (current) use of antithrombotics/antiplatelets; Z79.891 Long term (current) use of opiate analgesic; Z79.899 Other long term (current) drug therapy
CPT/HCPCS: 45330; J2001; J2704

== ENCOUNTER → 2016-09-09 | Day surgery (SDC) | payer MEDICARE ==
[2016-09-08 14:43] VITALS: BMI 24.7
[~2016-09-09] MED LIST: LACTATED RINGERS 1,000 ML IV SCH; LIDOCAINE 1% INJ 10MG/ML (20 ML MDV) ONE; PROPOFOL 10 MG/ML 20 ML VIAL IV ONE
== END ==
LOC: ORWHC2ENDO 11:49
PROVIDERS: ATTEND Surgery
DX: Z53.09 Procedure and treatment not carried out because of other contraindication (principal)

== ENCOUNTER 2016-09-10 11:45 | Emergency (ER) | payer MEDICARE ==
--- NOTE | 2016-09-10 11:56 | ED ---
General Adult HPI - General Chief complaint: Recheck/Abnormal Lab/Rx Stated complaint: Recheck Time Seen by Provider: 09/10/16 11:46 Source: EMS, RN notes reviewed, old records reviewed Mode of arrival: EMS Limitations: altered mental status, physical limitation - History of Present Illness Initial comments: This is an 85-year-old male to the ER today for evaluation. Patient sent from a clinic care facility for evaluation of shortness of breath and altered mental status. Patient has significant history of coronary artery disease. In attempt to give the patient patient is unable to give any history regarding breathing, states he is having left buttocks and left leg pain. Patient is poor strain secondary to clinical condition. Per staff at facility and EMS and transferred patient was having shortness of breath and weakness, they were concerned for CHF. - Related Data Home Medications Medication Instructions Recorded Confirmed Warfarin [Coumadin] 2.5 mg PO 1700 08/05/16 09/10/16 Atorvastatin [Lipitor] 40 mg PO HS@2100 08/19/16 09/10/16 Bisacodyl [Dulcolax] 10 mg RECTAL DAILY PRN 08/19/16 09/10/16 Clopidogrel [Plavix] 75 mg PO DAILY@0800 08/19/16 09/10/16 Famotidine [Pepcid] 20 mg PO BID@0800,1700 08/19/16 09/10/16 Magnesium Hydroxide [Milk of 2,400 mg PO DAILY PRN 08/19/16 09/10/16 Magnesia] Menthol/Zinc Oxide [Calmoseptine 1 applic TOPICAL BID 08/19/16 09/10/16 Ointment] Metoprolol Tartrate [Lopressor] 12.5 mg PO BID@0800,1700 08/19/16 09/10/16 Na Phos,M-B/Na Phos,Di-Ba [Fleet 133 ml RECTAL DAILY PRN 08/19/16 09/10/16 Adult] Sotalol [Betapace] 80 mg PO BID@0800,1700 08/19/16 09/10/16 Tamsulosin [Flomax] 0.8 mg PO HS@2100 08/19/16 09/10/16 HYDROcodone/APAP 5-325MG [[place] 1 tab PO Q4HR PRN 09/08/16 09/10/16 5-325] Amino Acids/Protein Hydrolys 30 ml PO DAILY@0800 09/10/16 09/10/16 [Pro-Stat Supplement] Aspirin 81 mg PO DAILY@1700 09/10/16 09/10/16 Collagenase [Santyl] 1 applic TOPICAL DAILY 09/10/16 09/10/16 Lactose-Reduced Food [Ensure Plus] 120 ml PO AC-TID 09/10/16 09/10/16 Lidocaine 2% Cream 1 applic TOPICAL DAILY PRN 09/10/16 09/10/16 Multivitamins, Thera [Multivitamin 1 tab PO DAILY@1700 09/10/16 09/10/16 (formulary)] Previous Rx's Medication Instructions Recorded Lactulose [Cephulac] 30 gm PO BID PRN #300 ml 08/17/16 Nitroglycerin Sl Tabs [Nitrostat] 0.4 mg SUBLINGUAL Q5M PRN #50 tab 08/17/16 Allergies Allergy/AdvReac Type Severity Reaction Status Date / Time No Known Allergies Allergy Verified 09/10/16 11:53 Review of Systems ROS Statement: Those systems with pertinent positive or pertinent negative responses have been documented in the HPI. ROS Other: All systems not noted in ROS Statement are negative. Past Medical History Past Medical History: Atrial Fibrillation, Coronary Artery Disease (CAD), Heart Failure, COPD, Myocardial Infarction (CT) Additional Past Medical History / Comment(s): per old records-fall/rt fenoral head fx, c/p. other past medical hx include: diverticulosis, colon cancer 1977(had sx-no chemo or radiation), gallstones(had sx),occ constipation, rt eye cataract, asthma as a child, hayfever, oa- rt hip, weakness, confusion Last Myocardial Infarction Date:: 1988 History of Any Multi-Drug Resistant Organisms: None Reported Past Surgical History: Bowel Resection, Cholecystectomy, Coronary Bypass/CABG, Heart Catheterization, Hernia Repair, Orthopedic Surgery, Tonsillectomy Additional Past Surgical History / Comment(s): colonoscopies,polypectomy, aaa repair 2000, triple vessel cabg 1988, lt carotid endarterectomy,rt inguinal hernia, "has teresa in colon since sx" Past Anesthesia/Blood Transfusion Reactions: No Reported Reaction Additional Past Anesthesia/Blood Transfusion Reaction / Comment(s): 2000- received blood -no reaction Past Psychological History: No Psychological Hx Reported Additional Psychological History / Comment(s): pt lives alone in own home, no pets,(a modular 1 level w/ 4 steps up to door).uses a walker when up.no other medical equipment at home. no outside services. still drives-goes out to breakfast every am.pt served in the [employer] and worked at [employer] till retired. Smoking Status: Former smoker Past Alcohol Use History: Unable to Obtain Additional Past Alcohol Use History / Comment(s): quit smoking 1985 stated smoked between 5-10 years 1ppd. Past Drug Use History: Unable to Obtain - Past Family History Mother Family Medical History: No Reported History Additional Family Medical History / Comment(s): from "natural causes" Father Additional Family Medical History / Comment(s): kidney failure General Exam Limitations: altered mental status, physical limitation General appearance: alert, in no apparent distress Head exam: Present: atraumatic, normocephalic, normal inspection Eye exam: Present: normal appearance, PERRL, EOMI. Absent: scleral icterus, conjunctival injection, periorbital swelling ENT exam: Present: normal exam, mucous membranes moist Neck exam: Present: normal inspection. Absent: tenderness, meningismus, lymphadenopathy Respiratory exam: Present: normal lung sounds bilaterally. Absent: respiratory distress, wheezes, rales, rhonchi, stridor Cardiovascular Exam: Present: regular rate, normal rhythm, normal heart sounds. Absent: systolic murmur, diastolic murmur, rubs, gallop, clicks GI/Abdominal exam: Present: soft, normal bowel sounds. Absent: distended, tenderness, guarding, rebound, rigid Extremities exam: Present: normal inspection, full ROM, normal capillary refill. Absent: tenderness, pedal edema, joint swelling, calf tenderness Back exam: Present: normal inspection Neurological exam: Present: alert, oriented X3, CN II-XII intact Psychiatric exam: Present: normal affect, normal mood Skin exam: Present: warm, dry, intact, normal color. Absent: rash Course Vital Signs 09/10/16 09/10/16 09/10/16 11:47 11:53 12:51 Temperature 98.7 F Pulse Rate 72 68 Respiratory 18 18 18 Rate Blood Pressure 133/62 124/61 O2 Sat by Pulse 99 98 Oximetry 09/10/16 13:40 Temperature Pulse Rate 71 Respiratory 16 Rate Blood Pressure 118/62 O2 Sat by Pulse 98 Oximetry - Reevaluation(s) Reevaluation #1: 09/10/16 14:07 prior troponin is 5.6 now is less than 1 and patient with no chest pain EKG Findings - EKG Comments: EKG Findings:: EKG shows atrial fibrillation at 65, QRS 12, QTC 492 Medical Decision Making - Medical Decision Making 85 male to the ED with no complaints. Patient was transferred for possible evaluation of CHF, patient's x-ray is clear lab work is normal. Patient is in no acute distress, pulse ox is normal patient can be discharged home - Lab Data Result diagrams: 09/10/16 12:20 09/10/16 12:20 Lab Results 09/10/16 09/10/16 09/10/16 Range/Units 12:20 12:20 12:20 WBC 6.8 (3.8-10.6) k/uL RBC 3.62 L (4.30-5.90) m/uL Hgb 13.0 (13.0-17.5) gm/dL Hct 38.3 L (39.0-53.0) % MCV 105.8 H D (80.0-100.0) fL MCH 35.8 H (25.0-35.0) pg MCHC 33.8 (31.0-37.0) g/dL RDW 16.9 H (11.5-15.5) % Plt Count 128 L (150-450) k/uL Neutrophils % 76 % Lymphocytes % 16 % Monocytes % 6 % Eosinophils % 1 % Basophils % 0 % Neutrophils # 5.2 (1.3-7.7) k/uL Lymphocytes # 1.1 (1.0-4.8) k/uL Monocytes # 0.4 (0-1.0) k/uL Eosinophils # 0.1 (0-0.7) k/uL Basophils # 0.0 (0-0.2) k/uL Manual Slide Review Performed Poikilocytosis Moderate Anisocytosis Slight Macrocytosis Marked PT (9.0-12.0) sec INR (<1.1) APTT (22.0-30.0) sec Sodium 144 (137-145) mmol/L Potassium 4.2 (3.5-5.1) mmol/L Chloride 106 (98-107) mmol/L Carbon Dioxide 28 (22-30) mmol/L Anion Gap 10 mmol/L BUN 21 H (9-20) mg/dL Creatinine 0.75 (0.66-1.25) mg/dL Est GFR (MDRD) Af Amer >60 (>60 ml/min/1.73 sqM) Est GFR (MDRD) Non-Af >60 (>60 ml/min/1.73 sqM) Glucose 120 H (74-99) mg/dL Calcium 9.1 (8.4-10.2) mg/dL Magnesium 1.8 (1.6-2.3) mg/dL Total Bilirubin 1.7 H (0.2-1.3) mg/dL AST 30 (17-59) U/L ALT 32 (21-72) U/L Alkaline Phosphatase 93 (38-126) U/L Total Creatine Kinase 29 L (55-170) U/L CK-MB (CK-2) 1.6 (0.0-2.4) ng/mL CK-MB (CK-2) Rel Index 5.5 Troponin I 0.090 H* (0.000-0.034) ng/mL NT-Pro-B Natriuret Pep pg/mL Total Protein 5.9 L (6.3-8.2) g/dL Albumin 2.8 L (3.5-5.0) g/dL 09/10/16 09/10/16 Range/Units 12:20 12:20 WBC (3.8-10.6) k/uL RBC (4.30-5.90) m/uL Hgb (13.0-17.5) gm/dL Hct (39.0-53.0) % MCV (80.0-100.0) fL MCH (25.0-35.0) pg MCHC (31.0-37.0) g/dL RDW (11.5-15.5) % Plt Count (150-450) k/uL Neutrophils % % Lymphocytes % % Monocytes % % Eosinophils % % Basophils % % Neutrophils # (1.3-7.7) k/uL Lymphocytes # (1.0-4.8) k/uL Monocytes # (0-1.0) k/uL Eosinophils # (0-0.7) k/uL Basophils # (0-0.2) k/uL Manual Slide Review Poikilocytosis Anisocytosis Macrocytosis PT 29.9 H (9.0-12.0) sec INR 3.1 (<1.1) APTT 27.3 (22.0-30.0) sec Sodium (137-145) mmol/L Potassium (3.5-5.1) mmol/L Chloride (98-107) mmol/L Carbon Dioxide (22-30) mmol/L Anion Gap mmol/L BUN (9-20) mg/dL Creatinine (0.66-1.25) mg/dL Est GFR (MDRD) Af Amer (>60 ml/min/1.73 sqM) Est GFR (MDRD) Non-Af (>60 ml/min/1.73 sqM) Glucose (74-99) mg/dL Calcium (8.4-10.2) mg/dL Magnesium (1.6-2.3) mg/dL Total Bilirubin (0.2-1.3) mg/dL AST (17-59) U/L ALT (21-72) U/L Alkaline Phosphatase (38-126) U/L Total Creatine Kinase (55-170) U/L CK-MB (CK-2) (0.0-2.4) ng/mL CK-MB (CK-2) Rel Index Troponin I (0.000-0.034) ng/mL NT-Pro-B Natriuret Pep 5260 pg/mL Total Protein (6.3-8.2) g/dL Albumin (3.5-5.0) g/dL - Radiology Data Radiology results: report reviewed (CXR is negative for acute disease), image reviewed Disposition Clinical Impression: Altered mental state Disposition: HOME SELF-CARE Condition: Good Instructions: Altered Mental Status (ED) Referrals: Madi Arriaza MD [Primary Care Provider] - 1-2 days
--- NOTE | 2016-09-10 12:41 | XR ---
EXAMINATION TYPE: XR chest 2V DATE OF EXAM: 09/10/2016 12:37 PM HISTORY: difficulty breathing. REFERENCE: Previous study dated 08/19/2016. FINDINGS: There has been a midline sternotomy and before meals bypass. The heart is mildly enlarged. There is some unfolding of the thoracic aorta. There is some scarring o r atelectasis at the right lung base. The lungs are otherwise clear. Pleural spaces are clear. IMPRESSION: 1. MILD CARDIOMEGALY. 2. SCARRING VERSUS ATELECTASIS, RIGHT LUNG BASE.
[2016-09-10 12:46] LABS: INR 3.1 (<1.1); Partial Thromboplastin Time 27.3 sec (22.0-30.0); Prothrombin Time 29.9 sec (9.0-12.0)
[2016-09-10 12:48] LABS: Anisocytosis Slight; Basophils % (A) 0 %; CH 35.5; CHCM 33.9; Eosinophils # (A) 0.1 k/uL (0-0.7); Eosinophils % (A) 1 %; HCT 38.3 % (39.0-53.0); HDW 4.28; Luc # (Auto) 0.07; Luc % (Auto) 1; Lymphocytes # (A) 1.1 k/uL (1.0-4.8); Lymphocytes % (A) 16 %; MCH 35.8 pg (25.0-35.0); MCHC 33.8 g/dL (31.0-37.0); Macrocytosis Marked; Monocytes # (A) 0.4 k/uL (0-1.0); Monocytes % (A) 6 %; Neutrophils # (A) 5.2 k/uL (1.3-7.7); Neutrophils % (A) 76 %; Poikilocytosis Moderate; RBC 3.62 m/uL (4.30-5.90); RDW 16.9 % (11.5-15.5); WBC 6.8 k/uL (3.8-10.6); WBC (Perox) 6.92
[2016-09-10 12:53] LABS: ALT 32 U/L (21-72); AST 30 U/L (17-59); Alkaline Phosphatase 93 U/L (38-126); Anion Gap 10 mmol/L; Blood Urea Nitrogen 21 mg/dL (9-20); Calcium 9.1 mg/dL (8.4-10.2); Carbon Dioxide 28 mmol/L (22-30); Chloride 106 mmol/L (98-107); Glucose 120 mg/dL (74-99); Magnesium 1.8 mg/dL (1.6-2.3); Non-African American GFR(MDRD) >60 (>60 ml/min/1.73 sqM); Potassium 4.2 mmol/L (3.5-5.1); Sodium 144 mmol/L (137-145); Total Bilirubin 1.7 mg/dL (0.2-1.3); Total Protein 5.9 g/dL (6.3-8.2)
[2016-09-10 12:55] LABS: MCV 105.8 fL (80.0-100.0)
[2016-09-10 13:12] LABS: Creatine Kinase MB 1.6 ng/mL (0.0-2.4)
[2016-09-10 13:13] LABS: Troponin I 0.09 ng/mL (0.000-0.034)
[2016-09-10 13:55] LABS: Manual Review Performed
[2016-09-10 14:28] VITALS: BP 135/87; PULSE 78; RESP 18; TEMP 98.2
== END 2016-09-10 14:51 | disposition home or self-care (01) ==
LOC: EC 11:45
DX: R41.82 Altered mental status, unspecified (principal); I48.91 Unspecified atrial fibrillation; Z85.038 Personal history of other malignant neoplasm of large intestine; Z79.01 Long term (current) use of anticoagulants; Z79.02 Long term (current) use of antithrombotics/antiplatelets; Z87.891 Personal history of nicotine dependence; Z79.82 Long term (current) use of aspirin; Z79.899 Other long term (current) drug therapy
CPT/HCPCS: 36415; 71020; 80053; 82550; 82553; 83735; 83880; 84484; 85025; 85610; 85730; 93005; 99285

== ENCOUNTER 2017-03-04 14:24 | Inpatient (IN) | payer MEDICARE ==
--- NOTE | 2017-03-04 15:37 | ED ---
General Adult HPI - General Chief complaint: Shortness of Breath Stated complaint: CHF Time Seen by Provider: 03/04/17 14:30 Source: EMS, RN notes reviewed Mode of arrival: EMS Limitations: altered mental status - History of Present Illness Initial comments: This is an 86-year-old male presents emergency Department from a custodial. Patient was sent in for increased edema and shortness of breath. Patient denies being short of breath. Patient states she's not sure why is here and he has no pain. Patient denies any complaints currently. Patient states he has no headache no numbness no weakness per patient denies any lightheadedness or dizziness. Patient denies abdominal pain patient denies nausea vomiting diarrhea. She denies any recent trauma or injury. Patient denies any fever or cough. Patientis living at a custodial and knows the name and he was having difficult time moving wood that was but otherwise seems to be able to answer all questions accurately. Patient has no complaints and tells me that I should call the doctor at the custodial to figure out why they sent him in. he prefers to go back immediately - Related Data Home Medications Medication Instructions Recorded Confirmed Bisacodyl [Dulcolax] 10 mg RECTAL DAILY PRN 08/19/16 03/04/17 Famotidine [Pepcid] 20 mg PO BID@0800,169908/19/16 03/04/17 Magnesium Hydroxide [Milk of 2,400 mg PO DAILY PRN 08/19/16 03/04/17 Magnesia] Menthol/Zinc Oxide [Calmoseptine 1 applic TOPICAL BID 08/19/16 03/04/17 Ointment] Metoprolol Tartrate [Lopressor] 12.5 mg PO BID@0800,0 08/19/16 03/04/17 Na Phos,M-B/Na Phos,Di-Ba [Fleet 133 ml RECTAL DAILY PRN 08/19/16 03/04/17 Adult] Sotalol [Betapace] 80 mg PO BID@0800,0 08/19/16 03/04/17 HYDROcodone/APAP 5-325MG [[place] 1 tab PO Q4HR PRN 09/08/16 03/04/17 5-325] Aspirin 81 mg PO DAILY@1700 09/10/16 03/04/17 Collagenase [Santyl] 1 applic TOPICAL DAILY 09/10/16 03/04/17 Lidocaine 2% Cream 1 applic TOPICAL DAILY PRN 09/10/16 03/04/17 Multivitamins, Thera [Multivitamin 1 tab PO DAILY 09/10/16 03/04/17 (formulary)] Acetaminophen [Tylenol 8 Hour] 650 mg PO Q4H PRN 03/04/17 03/04/17 Albuterol Nebulized [Ventolin 2.5 mg INHALATION RT-TID 03/04/17 03/04/17 Nebulized] Albuterol Nebulized [Ventolin 2.5 mg INHALATION RT-TID PRN 03/04/17 03/04/17 Nebulized] Atorvastatin Calcium [Lipitor] 10 mg PO DAILY 03/04/17 03/04/17 Donepezil [Aricept] 10 mg PO HS 03/04/17 03/04/17 Furosemide [Lasix] 40 mg PO DAILY 03/04/17 03/04/17 Lactulose [Cephulac] 20 gm PO BID PRN 03/04/17 03/04/17 Memantine HCl [Namenda Xr] 7 mg PO DAILY 03/04/17 03/04/17 Potassium Chloride [Klor-Con 20] 20 meq PO DAILY 03/04/17 03/04/17 Tamsulosin HCl [Flomax] 0.8 mg PO DAILY 03/04/17 03/04/17 Warfarin [Coumadin] 2 mg PO SUTUTHSA 03/04/17 03/04/17 Warfarin [Coumadin] 2.5 mg PO MOWEFR 03/04/17 03/04/17 Previous Rx's Medication Instructions Recorded Nitroglycerin Sl Tabs [Nitrostat] 0.4 mg SUBLINGUAL Q5M PRN #50 tab 08/17/16 Allergies Allergy/AdvReac Type Severity Reaction Status Date / Time No Known Allergies Allergy Verified 03/04/17 14:40 Review of Systems ROS Statement: Those systems with pertinent positive or pertinent negative responses have been documented in the HPI. ROS Other: All systems not noted in ROS Statement are negative. Past Medical History Past Medical History: Atrial Fibrillation, Coronary Artery Disease (CAD), Heart Failure, COPD, Myocardial Infarction ([place]) Additional Past Medical History / Comment(s): per old records-fall/rt fenoral head fx, c/p. other past medical hx include: diverticulosis, colon cancer 1977(had sx-no chemo or radiation), gallstones(had sx),occ constipation, rt eye cataract, asthma as a child, hayfever, oa- rt hip, weakness, confusion Last Myocardial Infarction Date:: 1988 History of Any Multi-Drug Resistant Organisms: None Reported Past Surgical History: Bowel Resection, Cholecystectomy, Coronary Bypass/CABG, Heart Catheterization, Hernia Repair, Orthopedic Surgery, Tonsillectomy Additional Past Surgical History / Comment(s): colonoscopies,polypectomy, aaa repair 2000, triple vessel cabg 1988, lt carotid endarterectomy,rt inguinal hernia, "has teresa in colon since sx" Past Anesthesia/Blood Transfusion Reactions: No Reported Reaction Additional Past Anesthesia/Blood Transfusion Reaction / Comment(s): 2000- received blood -no reaction Past Psychological History: No Psychological Hx Reported Smoking Status: Former smoker Past Alcohol Use History: Unable to Obtain Past Drug Use History: Unable to Obtain - Past Family History Mother Family Medical History: No Reported History Additional Family Medical History / Comment(s): from "natural causes" Father Additional Family Medical History / Comment(s): kidney failure General Exam - General Exam Comments Initial Comments: GENERAL: Patient is well-developed and well-nourished. Patient is nontoxic and well- hydrated and is in no acute distress. ENT: Neck is soft and supple. No significant lymphadenopathy is noted. Oropharynx is clear. Moist mucous membranes. Neck has full range of motion without eliciting any pain. EYES: The sclera were anicteric and conjunctiva were pink and moist. Extraocular movements were intact and pupils were equal round and reactive to light. Eyelids were unremarkable. PULMONARY: Unlabored respirations. Good breath sounds bilaterally. No audible rales rhonchi or wheezing was noted. CARDIOVASCULAR: There is a regular rate and rhythm without any murmurs gallops or rubs. ABDOMEN: Soft and nontender with normal bowel sounds. No palpable organomegaly was noted. There is no palpable pulsatile mass. SKIN: Skin is clear with no lesions or rashes and otherwise unremarkable. NEUROLOGIC: Patient is alert and oriented 2. Cranial nerves II through XII are grossly intact. Motor and sensory are also intact. Normal speech, volume and content. Symmetrical smile. MUSCULOSKELETAL: Normal extremities with adequate strength and full range of motion. 2+ edema bilaterally LYMPHATICS: No significant lymphadenopathy is noted PSYCHIATRIC: Normal psychiatric evaluation. Normal interpersonal interactions appears functionally intact in deals appropriately with others. No signs of depression. No signs of anxiety. Limitations: altered mental status Course Vital Signs 03/04/17 03/04/17 14:26 15:13 Temperature 97.0 F L Pulse Rate 61 80 Respiratory 18 18 Rate Blood Pressure 131/65 162/102 O2 Sat by Pulse 96 98 Oximetry Medical Decision Making - Medical Decision Making Patient's EKG shows atrial fibrillation at a rate of 55 bpm QRS is under QT intervals 454 QTC is 434. Patient's old EKG was used to compare to and there are no acute changes noted other than a slower rate. Chest x-ray shows congestive heart failure and bilateral pleural effusions that were not there on his last x-ray. I gave the patient Lasix and nitroglycerin. I spoke with Dr. Celis admitted the patient I wrote admitting orders I consult cardiology continued Lasix and nitroglycerin on the floor. - Lab Data Result diagrams: 03/04/17 15:00 03/04/17 15:00 Lab Results 03/04/17 03/04/17 03/04/17 Range/Units 15:00 15:00 15:00 WBC 3.9 (3.8-10.6) k/uL RBC 3.87 L (4.30-5.90) m/uL Hgb 12.9 L (13.0-17.5) gm/dL Hct 41.6 (39.0-53.0) % MCV 107.4 H (80.0-100.0) fL MCH 33.4 (25.0-35.0) pg MCHC 31.1 (31.0-37.0) g/dL RDW 17.0 H (11.5-15.5) % Plt Count 56 L (150-450) k/uL Neutrophils % 69 % Lymphocytes % 20 % Monocytes % 7 % Eosinophils % 2 % Basophils % 0 % Neutrophils # 2.7 (1.3-7.7) k/uL Lymphocytes # 0.8 L (1.0-4.8) k/uL Monocytes # 0.3 (0-1.0) k/uL Eosinophils # 0.1 (0-0.7) k/uL Basophils # 0.0 (0-0.2) k/uL Manual Slide Review Performed Poikilocytosis (manual Present Anisocytosis Slight Macrocytosis Marked Sodium 140 (137-145) mmol/L Potassium 4.1 (3.5-5.1) mmol/L Chloride 101 (98-107) mmol/L Carbon Dioxide 30 (22-30) mmol/L Anion Gap 9 mmol/L BUN 34 H (9-20) mg/dL Creatinine 0.90 (0.66-1.25) mg/dL Est GFR (MDRD) Af Amer >60 (>60 ml/min/1.73 sqM) Est GFR (MDRD) Non-Af >60 (>60 ml/min/1.73 sqM) Glucose 107 H (74-99) mg/dL Calcium 9.1 (8.4-10.2) mg/dL Magnesium 1.9 (1.6-2.3) mg/dL Total Bilirubin 1.1 (0.2-1.3) mg/dL AST 22 (17-59) U/L ALT 28 (21-72) U/L Alkaline Phosphatase 106 (38-126) U/L Total Creatine Kinase <20 L (55-170) U/L Total Protein 6.4 (6.3-8.2) g/dL Albumin 3.0 L (3.5-5.0) g/dL Critical Care Time Critical Care Time: Yes Total Critical Care Time: 35 Disposition Clinical Impression: Acute pulmonary edema Disposition: ADMITTED IP TO THIS HOSP Referrals: Doug White DO [Primary Care Provider] - 1-2 days Time of Disposition: 16:26
--- NOTE | 2017-03-04 15:57 | XR ---
EXAMINATION TYPE: XR chest 2V DATE OF EXAM: 03/04/2017 COMPARISON: 09/10/2016 HISTORY: Shortness of breath TECHNIQUE: Frontal and lateral views of the chest are obtained. FINDINGS: Scattered senescent parenchymal changes noted. Hyperinflation compatible with COPD. Basilar pleural effusions and infiltrates. Pulmonary venous congestion noted. There is also cardiomeg akil. The findings may be secondary to congestive failure although underlying pneumonia not excluded. Correlate clinically. Mediastinal structures are stable and grossly unremarkable. No evidence for hilar prominence. Degenerative changes dorsal spine. IMPRESSION: 1. Basilar pleural effusions and infiltrates. Pulmonary venous congestion noted. There is also cardio megaly. The findings may be secondary to congestive failure although underlying pneumonia not exclude d. Correlate clinically.
[2017-03-04 16:00] LABS: Anisocytosis Slight; Basophils % (A) 0 %; CH 34.2; CHCM 32.2; Eosinophils # (A) 0.1 k/uL (0-0.7); Eosinophils % (A) 2 %; HCT 41.6 % (39.0-53.0); HDW 2.87; HGB 12.9 gm/dL (13.0-17.5); Luc # (Auto) 0.05; Luc % (Auto) 1; Lymphocytes # (A) 0.8 k/uL (1.0-4.8); Lymphocytes % (A) 20 %; MCH 33.4 pg (25.0-35.0); MCHC 31.1 g/dL (31.0-37.0); MCV 107.4 fL (80.0-100.0); Macrocytosis Marked; Mean Platelet Volume 8.9; Monocytes # (A) 0.3 k/uL (0-1.0); Monocytes % (A) 7 %; Neutrophils # (A) 2.7 k/uL (1.3-7.7); Neutrophils % (A) 69 %; RBC 3.87 m/uL (4.30-5.90); WBC 3.9 k/uL (3.8-10.6); WBC (Perox) 3.76
[2017-03-04 16:10] LABS: ALT 28 U/L (21-72); AST 22 U/L (17-59); Alkaline Phosphatase 106 U/L (38-126); Anion Gap 9 mmol/L; Blood Urea Nitrogen 34 mg/dL (9-20); Calcium 9.1 mg/dL (8.4-10.2); Carbon Dioxide 30 mmol/L (22-30); Chloride 101 mmol/L (98-107); Glucose 107 mg/dL (74-99); Magnesium 1.9 mg/dL (1.6-2.3); Non-African American GFR(MDRD) >60 (>60 ml/min/1.73 sqM); Potassium 4.1 mmol/L (3.5-5.1); Sodium 140 mmol/L (137-145); Total Bilirubin 1.1 mg/dL (0.2-1.3); Total Protein 6.4 g/dL (6.3-8.2)
[2017-03-04 16:16] LABS: Manual Review Performed
[2017-03-04 16:21] LABS: Creatine Kinase <20 U/L (55-170)
[2017-03-04] MEDS ORDERED: NITROGLYCERIN OINT 1 INCH/GM PACKET TOPICAL STA (16:23)
[2017-03-04] MEDS ORDERED: FUROSEMIDE 10 MG/ML 4 ML VIAL IV STA (16:23)
[2017-03-04 16:28] LABS: INR 2.5 (<1.2); Partial Thromboplastin Time 30.4 sec (22.0-30.0); Prothrombin Time 24.4 sec (9.0-12.0)
[2017-03-04 16:34] LABS: Creatine Kinase MB 1.1 ng/mL (0.0-2.4); Troponin I <0.012 ng/mL (0.000-0.034)
[2017-03-04] MEDS ORDERED: NITROGLYCERIN SL TABS 0.4 MG TAB SUBLINGUAL PRN (19:01)
[2017-03-04] MEDS ORDERED: LIDOCAINE 2% GEL 30 ML TUBE TOPICAL PRN (19:01)
[2017-03-04] MEDS ORDERED: BISACODYL 10 MG SUPP RECTAL PRN (19:01)
[2017-03-04] MEDS ORDERED: LACTULOSE 20 GM/30 ML CUP PO PRN (19:01)
[2017-03-04] MEDS ORDERED: MAGNESIUM HYDROXIDE 2,400 MG/10 ML CUP PO PRN (19:01)
[2017-03-04] MEDS ORDERED: WARFARIN 2.5 MG TAB PO SCH (19:15)
[2017-03-04] MEDS ORDERED: FUROSEMIDE 10 MG/ML 4 ML VIAL IV SCH (21:00)
[2017-03-04] MEDS: FUROSEMIDE 10 MG/ML 4 ML VIAL IV SCH (21:50)
[2017-03-04] MEDS: DONEPEZIL 10 MG TAB PO SCH (21:50)
[2017-03-04] MEDS ORDERED: NITROGLYCERIN OINT 1 INCH/GM PACKET TOPICAL SCH (22:00)
--- NOTE | 2017-03-04 22:42 | HP ---
HISTORY AND PHYSICAL DATE OF ADMISSION: 03/04/2017 PRESENTING COMPLAINT: Tired. HISTORY OF PRESENTING COMPLAINT: This is a pleasant 86-year-old patient of Dr. White. Lives by himself. Chronic stable medical conditions include atrial fibrillation, coronary artery disease, COPD, diverticulosis, osteoarthritis. Patient is not the best of historians, comes in feeling weak, tired, run down, swelling in his lower extremities, rather tired. Denies any chest pain. REVIEW OF SYSTEMS: CONSTITUTIONAL: Weak, tired. HEENT: Decreased hearing. RESPIRATORY: Some short of breath. CARDIOVASCULAR: No chest pain. GASTROINTESTINAL: None. GENITOURINARY: None. MUSCULOSKELETAL: Pain in different joints. DERMATOLOGICAL: Patient has an ulcer on the left heel for over 2 or 3 weeks, not much pain. PSYCHIATRY: Slightly forgetful. NEUROLOGICAL: Denies weakness. No focal weakness. PAST MEDICAL HISTORY: Atrial fibrillation, coronary artery disease, heart failure, COPD, diverticulosis, colon cancer 1977, gallstones, right eye cataract, osteoarthritis. PAST SURGICAL HISTORY: Bowel resection, cholecystectomy, coronary artery bypass, tonsillectomy, polypectomy, AAA repair 2000, triple bypass 1988, left carotid endarterectomy, right inguinal hernia repair. SOCIAL HISTORY: Lives alone sometimes uses a walker. The patient worked in the [employer] and retired from [employer]. The patient maybe smoked up to 10 years, stopped in 1985, about a pack a day. FAMILY HISTORY: Reviewed. Noncontributory to presentation. HOME MEDICATIONS: 1. Sotalol 80 mg p.o. b.i.d. 2. Calmoseptine 1 application topical b.i.d. 3. Potassium 20 mEq p.o. daily. 4. Santyl 1 application topical daily. 5. Nitrostat 0.4 sublingual q.5 p.r.n. 6. Namenda XR 7 mg p.o. daily. 7. Sunflower 5, 1 tablet q.4h p.r.n. 8. Multivitamin 1 tablet p.o. daily. 9. Lopressor 12.5 p.o. b.i.d. 10.Milk of magnesia 2400 mg p.o. daily p.r.n. 11.Lidocaine 2% topical daily p.r.n. 12.Flomax 0.8 mg p.o. daily. 13.Lactulose 20 g p.o. b.i.d. p.r.n. 14.Lasix 40 mg p.o. daily. 15.Pepcid 20 mg p.o. b.i.d. 16.Coumadin 2 mg on Tuesday, Tuesday, , Tuesday. 17.Adult Fleet p.r.n. 18.Dulcolax 10 mg rectal daily p.r.n. 19.Coumadin 2.5 mg on Tuesday, Tuesday, Tuesday. 20.Aricept 10 mg q.h.s. 21.Lipitor 10 mg p.o. daily. 22.Ventolin 2.5 t.i.d. p.r.n. 23.Aspirin 81 mg p.o. daily. 24.Ventolin 2.5 t.i.d. ALLERGIES: None. PHYSICAL EXAMINATION: VITAL SIGNS: On presentation, temperature 97, pulse 61, respirations 18, blood pressure 113/65, pulse ox 96% on room air. ' GENERAL APPEARANCE: Lying in bed, tired-appearing. EYES: Pupils equal. Conjunctivae normal. NECK: JVD unable to assess. Mass not palpable. RESPIRATORY: Effort decreased. LUNGS: Diminished breath sounds. CARDIOVASCULAR: Heart sounds irregular. Gross edema present up to the thighs. ABDOMEN: Soft, nontender. Liver and spleen not palpable. LYMPHATIC: No lymph node palpable in neck or axillae. PSYCHIATRY: Patient is able answer simple questions. Mood and affect normal. NEUROLOGICAL: Pupils equal. Cranial nerves grossly intact. Power and sensation are grossly intact. EXTREMITIES: The patient has an ulcer on the left heel, relatively clean edges. INVESTIGATIONS: White count 3.9, hemoglobin 12.9, platelets 56, INR 2.5. Potassium 4.1. ProBNP 5070. Chest x-ray shows pulmonary edema bilateral with CHF. ASSESSMENT: 1. Acute congestive heart failure exacerbation on chronic congestive heart failure, ejection fraction not known. 2. Coronary artery disease, prior history of coronary bypass. 3. Persistent atrial fibrillation, rate controlled. 4. Chronic obstructive pulmonary disease. 5. Colonic diverticulosis. 6. Primary osteoarthritis in multiple joints. 7. Chronic Coumadin monitoring. 8. CODE STATUS: DO NOT RESUSCITATE. PLAN: Patient is put on IV Lasix. Home medications are resumed. INR will be closely followed. Electrolytes will be closely followed. Per Nursing, PATIENT'S CODE STATUS IS DO NOT RESUSCITATE. Will get a 2-D echocardiogram after my assessment, code status do not raised, mass not palpable. Care was discussed with Dr. White. EMILY / DANIELA: [id number] /
[2017-03-04] MEDS ORDERED: ACETAMINOPHEN TAB 325 MG TAB PO STA (22:55)
[2017-03-05] MEDS: FUROSEMIDE 10 MG/ML 4 ML VIAL IV SCH ×2 (06:10→16:21)
[2017-03-05 07:06] LABS: INR 2.2 (<1.2)
[2017-03-05 07:18] LABS: Anion Gap 8 mmol/L; Carbon Dioxide 28 mmol/L (22-30); Chloride 104 mmol/L (98-107); Glucose 83 mg/dL (74-99); Non-African American GFR(MDRD) >60 (>60 ml/min/1.73 sqM); Sodium 140 mmol/L (137-145)
[2017-03-05 07:24] LABS: Potassium 4.1 mmol/L (3.5-5.1)
[2017-03-05 07:25] LABS: Blood Urea Nitrogen 31 mg/dL (9-20)
[2017-03-05] MEDS: MULTIVITAMINS, THERA 1 EACH TAB PO SCH (08:11)
[2017-03-05] MEDS: MEMANTINE 5 MG TAB PO SCH (08:11)
[2017-03-05] MEDS: POTASSIUM CHLORIDE ER 20 MEQ TAB.ER PO SCH (08:11)
[2017-03-05] MEDS: FAMOTIDINE 20 MG TAB PO SCH ×2 (08:11→16:22)
[2017-03-05] MEDS: TAMSULOSIN 0.4 MG CAP.ER.24H PO SCH (08:11)
[2017-03-05] MEDS ORDERED: ATORVASTATIN 10 MG TAB PO SCH (09:00)
--- NOTE | 2017-03-05 09:45 | P.CRDCN ---
History of Present Illness Consult date: 03/05/17 Requesting physician: Jose Luis Celis Reason for Consult (text): acute pulmonary edema History of present illness: This is an 86-year-old gentleman who resides in an extended care facility. He has a history of atrial fibrillation, anticoagulated on coumadin, coronary artery disease, heart failure, COPD, AL in the past, prior coronary artery bypass grafting and stenting of the SVG to the diagonal in July of this year. He was sent to the emergency department by the staff at the extended care facility for increasing edema and shortness of breath. Patient denies feeling any shortness of breath and is not sure why he is here. He denies any complaints of chest discomfort, dizziness, lightheadedness, weakness or palpitations. EKG on admission showed atrial fibrillation with a heart rate of 55. Chest x-ray showed basilar pleural effusions and infiltrates, pulmonary venous congestion was noted and suggested that findings may be secondary to congestive heart failure although underlying pneumonia is not excluded. Laboratory values show no elevation in white count, BUN of 31, creatinine 0.91, troponin less than 0.012 [place] 50[place]. He has been afebrile. Old records were reviewed and showed a moderately impaired LV systolic function with ejection fraction between 35-40%, mid to basal inferolateral hypokinesis, mild aortic regurgitation, mild mitral regurgitation and mild tricuspid regurgitation. Past Medical History Past Medical History: Atrial Fibrillation, Coronary Artery Disease (CAD), Heart Failure, COPD, Myocardial Infarction (AL) Additional Past Medical History / Comment(s): per old records-fall/rt fenoral head fx, c/p. other past medical hx include: diverticulosis, colon cancer 1977(had sx-no chemo or radiation), gallstones(had sx),occ constipation, rt eye cataract, asthma as a child, hayfever, oa- rt hip, weakness, confusion Last Myocardial Infarction Date:: 1988 History of Any Multi-Drug Resistant Organisms: None Reported Past Surgical History: Bowel Resection, Cholecystectomy, Coronary Bypass/CABG, Heart Catheterization, Hernia Repair, Orthopedic Surgery, Tonsillectomy Additional Past Surgical History / Comment(s): colonoscopies,polypectomy, aaa repair 2000, triple vessel cabg 1988, lt carotid endarterectomy,rt inguinal hernia, "has teresa in colon since sx" Past Anesthesia/Blood Transfusion Reactions: No Reported Reaction Additional Past Anesthesia/Blood Transfusion Reaction / Comment(s): 2000- received blood -no reaction Past Psychological History: No Psychological Hx Reported Additional Psychological History / Comment(s): pt lives alone in own home, no pets,(a modular 1 level w/ 4 steps up to door).uses a walker when up.no other medical equipment at home. no outside services. still drives-goes out to breakfast every am.pt served in the [employer] and worked at [employer] till retired. Smoking Status: Former smoker Past Alcohol Use History: Unable to Obtain Additional Past Alcohol Use History / Comment(s): quit smoking 1985 stated smoked between 5-10 years 1ppd. Past Drug Use History: Unable to Obtain - Past Family History Mother Family Medical History: No Reported History Additional Family Medical History / Comment(s): from "natural causes" Father Additional Family Medical History / Comment(s): kidney failure Medications and Allergies Home Medications Medication Instructions Recorded Confirmed Type Nitroglycerin Sl Tabs [Nitrostat] 0.4 mg SUBLINGUAL Q5M PRN #50 tab 08/17/1611/13 Rx Bisacodyl [Dulcolax] 10 mg RECTAL DAILY PRN 08/19/16 03/04/17 History Famotidine [Pepcid] 20 mg PO BID@0800,1700 08/19/16 03/04/17 History Magnesium Hydroxide [Milk of 2,400 mg PO DAILY PRN 08/19/16 03/04/17 History Magnesia] Menthol/Zinc Oxide [Calmoseptine 1 applic TOPICAL BID 08/19/16 03/04/17 History Ointment] Metoprolol Tartrate [Lopressor] 12.5 mg PO BID@0800,1700 08/19/16 03/04/17 History Na Phos,M-B/Na Phos,Di-Ba [Fleet 133 ml RECTAL DAILY PRN 08/19/16 03/04/17 History Adult] Sotalol [Betapace] 80 mg PO BID@0800,1700 08/19/16 03/04/17 History HYDROcodone/APAP 5-325MG [Hopkins 1 tab PO Q4HR PRN 09/08/16 03/04/17 History 5-325] Aspirin 81 mg PO DAILY@1700 09/10/16 03/04/17 History Collagenase [Santyl] 1 applic TOPICAL DAILY 09/10/16 03/04/17 History Lidocaine 2% Cream 1 applic TOPICAL DAILY PRN 09/10/16 03/04/17 History Multivitamins, Thera [Multivitamin 1 tab PO DAILY 09/10/16 03/04/17 History (formulary)] Acetaminophen [Tylenol 8 Hour] 650 mg PO Q4H PRN 03/04/17 03/04/17 History Albuterol Nebulized [Ventolin 2.5 mg INHALATION RT-TID 03/04/17 03/04/17 History Nebulized] Albuterol Nebulized [Ventolin 2.5 mg INHALATION RT-TID PRN 03/04/17 03/04/17 History Nebulized] Atorvastatin Calcium [Lipitor] 10 mg PO DAILY 03/04/17 03/04/17 History Donepezil [Aricept] 10 mg PO HS 03/04/17 03/04/17 History Furosemide [Lasix] 40 mg PO DAILY 03/04/17 03/04/17 History Lactulose [Cephulac] 20 gm PO BID PRN 03/04/17 03/04/17 History Memantine HCl [Namenda Xr] 7 mg PO DAILY 03/04/17 03/04/17 History Potassium Chloride [Klor-Con 20] 20 meq PO DAILY 03/04/17 03/04/17 History Tamsulosin HCl [Flomax] 0.8 mg PO DAILY 03/04/17 03/04/17 History Warfarin [Coumadin] 2 mg PO SUTUTHSA 03/04/17 03/04/17 History Warfarin [Coumadin] 2.5 mg PO MOWEFR 03/04/17 03/04/17 History Allergies Allergy/AdvReac Type Severity Reaction Status Date / Time No Known Allergies Allergy Verified 03/04/17 14:40 Physical Exam Vitals: Vital Signs Temp Pulse Pulse Pulse Resp BP BP 03/05/17 08:00 97.0 F L 72 20 03/05/17 04:00 97.4 F L 64 18 03/04/17 23:42 70 18 116/63 03/04/17 20:00 97.6 F 63 18 03/04/17 18:30 66 16 03/04/17 17:39 98.3 F 69 16 116/56 03/04/17 17:04 68 18 136/66 03/04/17 15:13 80 18 162/102 03/04/17 14:26 97.0 F L 61 18 131/65 BP Pulse Ox 03/05/17 08:00 103/66 95 03/05/17 04:00 92/54 94 L 03/04/17 23:42 95 03/04/17 20:00 110/64 96 03/04/17 18:30 03/04/17 17:39 99 03/04/17 17:04 96 03/04/17 15:13 98 03/04/17 14:26 96 Intake and Output 03/04/17 03/05/17 03/05/17 22:59 06:59 14:59 Intake Total 240 236 Balance 240 236 Intake: Oral 240 236 Other: Voiding Method Urinal Urinal Urinal Diaper Diaper Diaper Incontinent Incontinent Incontinent # Voids 2 2 Weight 86.545 kg 89 kg PHYSICAL EXAMINATION: HEENT: Head is atraumatic, normocephalic. Pupils equal, round. Neck is supple. There is no elevated jugular venous pressure. HEART EXAMINATION: Heart sounds irregularly irregular, S1 and S2 normal. No murmur or gallop heard. CHEST EXAMINATION: Lungs are clear to auscultation and precussion. No chest wall tenderness is noted on palpation or with deep breathing. ABDOMEN: Soft, nontender. Bowel sounds are heard. No organomegaly noted. EXTREMITIES: Diminished peripheral pulses with evidence of +1 peripheral edema and no calf tenderness noted. NEUROLOGIC patient is awake, alert and oriented x3. . Results 03/04/17 15:00 03/05/17 06:19 Cardiac Enzymes 03/04/17 03/04/17 Range/Units 15:00 15:00 AST 22 (17-59) U/L CK-MB (CK-2) 1.1 (0.0-2.4) ng/mL Troponin I <0.012 (0.000-0.034) ng/mL Coagulation 03/04/17 03/05/17 Range/Units 15:00 06:19 PT 24.4 H 21.0 H (9.0-12.0) sec APTT 30.4 H (22.0-30.0) sec CBC 03/04/17 Range/Units 15:00 WBC 3.9 (3.8-10.6) k/uL RBC 3.87 L (4.30-5.90) m/uL Hgb 12.9 L (13.0-17.5) gm/dL Hct 41.6 (39.0-53.0) % Plt Count 56 L (150-450) k/uL Comprehensive Metabolic Panel 03/04/17 03/05/17 Range/Units 15:00 06:19 Sodium 140 140 (137-145) mmol/L Potassium 4.1 4.1 (3.5-5.1) mmol/L Chloride 101 104 (98-107) mmol/L Carbon Dioxide 30 28 (22-30) mmol/L BUN 34 H 31 H (9-20) mg/dL Creatinine 0.90 0.91 (0.66-1.25) mg/dL Glucose 107 H 83 (74-99) mg/dL Calcium 9.1 9.0 (8.4-10.2) mg/dL AST 22 (17-59) U/L ALT 28 (21-72) U/L Alkaline Phosphatase 106 (38-126) U/L Total Protein 6.4 (6.3-8.2) g/dL Albumin 3.0 L (3.5-5.0) g/dL Current Medications Generic Name Dose Route Start Last Admin Trade Name Freq PRN Reason Stop Dose Admin Aspirin 81 mg 03/05/17 17:00 Aspirin PO DAILY@1700 [facility] Atorvastatin Calcium 10 mg 03/05/17 09:00 03/05/17 08:11 Lipitor PO 10 mg DAILY KYUNG Administration Bisacodyl 10 mg 03/04/17 19:01 Dulcolax RECTAL DAILY PRN Constipation Collagenase 1 applic 03/05/17 09:00 Santyl TOPICAL DAILY KYUNG Donepezil HCl 10 mg 03/04/17 21:00 03/04/17 21:50 Aricept PO 10 mg HS KYUNG Administration Famotidine 20 mg 03/05/17 08:00 03/05/17 08:11 Pepcid PO 20 mg BID@0800,1700 KYUNG Administration Furosemide 40 mg 03/04/17 21:00 03/05/17 06:10 Lasix IV 40 mg Q8H KYUNG Administration Lactulose 20 gm 03/04/17 19:01 Cephulac PO BID PRN Constipation Lidocaine HCl 1 applic 03/04/17 19:01 Xylocaine Jelly 2% TOPICAL DAILY PRN L HEEL WOUND Magnesium Hydroxide 2,400 mg 03/04/17 19:01 Milk Of Magnesia PO DAILY PRN Constipation Memantine 5 mg 03/05/17 09:00 03/05/17 08:11 Namenda PO 5 mg DAILY KYUNG Administration Multivitamins 1 each 03/05/17 12:00 03/05/17 08:11 Theragran PO 1 each DAILY@1200 KYUNG Administration Nitroglycerin 0.4 mg 03/04/17 19:01 Nitrostat SUBLINGUAL Q5M PRN Chest Pain Potassium Chloride 20 meq 03/05/17 09:00 03/05/17 08:11 K-Dur 20 PO 20 meq DAILY KYUNG Administration Tamsulosin HCl 0.8 mg 03/05/17 09:00 03/05/17 08:11 Flomax PO 0.8 mg DAILY KYUNG Administration Warfarin Sodium 2 mg 03/05/17 18:00 Coumadin PO SUTUTHSA [facility] Warfarin Sodium 2.5 mg 03/04/17 19:15 03/04/17 21:49 Coumadin PO 2.5 mg MoWeFr@1800 KYUNG Administration Intake and Output 03/04/17 03/05/17 03/05/17 22:59 06:59 14:59 Intake Total 240 236 Balance 240 236 Intake: Oral 240 236 Other: Voiding Method Urinal Urinal Urinal Diaper Diaper Diaper Incontinent Incontinent Incontinent # Voids 2 2 Weight 86.545 kg 89 kg 03/04/17 15:00 03/05/17 06:19 EKG Interpretations (text) Atrial fibrillation Assessment and Plan Plan: Assessment and plan #1 acute on chronic systolic congestive heart failure #2 chronic atrial fibrillation, anticoagulated on Coumadin #3 history of CAD with prior CABG and stenting of the SVG to the diagonal in July of this year #4 COPD From cardiology's perspective, we will obtain a 2-D echo with doppler. We will stop sotalol and metoprolol. Start the patient on lisinopril and carvedilol. Resume aspirin. Continue IV lasix. Monitor renal function. Further recommendations to follow. CAR PUSHER note has been reviewed, I agree with a documented findings and plan of care. Patient was seen and examined.
[2017-03-05 10:45] VITALS: BMI 28.1
--- NOTE | 2017-03-05 12:26 | P.PN ---
Progress Note - Text This is an addendum to the dictated cardiology consultation. The patient has a history of CAD, post CABG, post stenting in July 2016, ischemic cardiomyopathy , chronic atrial fibrillation who lives in a care home and presents with increasing edema and dyspnea. The patient is does not know why he is here and denies any significant symptoms. On physical examination he has significant peripheral edema and few crackles at the bases. His lab data is consistent with CHF as well as his chest x-ray. The patient presents with exacerbation of systolic heart failure. I will continue intravenous diuretics for the next 24-48 hours, continue beta ivis and add. Depending on his progress further recommendations will be made. Thank you for this consult we will follow with you.
--- NOTE | 2017-03-05 13:17 | P.PN ---
Progress Note - Text Progress Note Date: 03/05/17 DATE OF SERVICE: 03/05/2017 PRESENTING COMPLAINT: increasing shortness of breath HISTORY OF PRESENT ILLNESS: 86-year-old male who lives by himself came in feeling weak tired and rundown developed swelling in his lower extremities.diagnostic testing revealed congestive heart failure exacerbation and was admitted for the same. INTERVAL HISTORY: 03/05/2017: Patient lying in bed appears comfortable breathing easily.has a component of confusion. left heel wound dressed with Kerlix, no drainage noted. remains in atrial fibrillation rate controlled, cardiology to see the patient await their recommendations. Tolerating his diet eating about 50% of his meal. Ambulatory with assistance. REVIEW OF SYSTEMS: Done for constitutional ,cardiovascular, GI, pulmonary, integument with relevant findings as above. CURRENT MEDICATIONS aspirin, Lipitor, Coreg 6.25 mg by mouth twice a day, Aricept 10 mg by mouth at bedtime, Lasix 40 mg IV every 8 hours, lisinopril 2.5 mg by mouth daily, Namenda 5 mg by mouth daily,potassium chloride 20 milliequivalents by mouth daily, tamsulosin 0.8 mg by mouth daily PHYSICAL EXAM VITAL SIGNS: temperature 97.0, pulse 72, respiratory rate 20, blood pressure 103/66, oxygen saturation 95% on 2 L. GENERAL APPEARANCE: Lying in bed, not in distress. EYES: Pupils equal. Conjunctiva normal. NECK: JVD raised. Mass not palpable. RESPIRATORY: Respiratory effort normal. Lungs diminished with scattered crackles throughout to auscultation. CARDIOVASCULAR: irregular rhythml. moderate edema up to the thighs ABDOMEN: Soft. Liver and spleen not palpable. No tenderness. No mass palpable. PSYCHIATRY: Alert and oriented x3. Mood and affect normal. INTEGUMENT: Left heel wound about 2 cm in diameter INVESTIGATIONS:left heel wound 2 cm in diameter just with a Telfa pad and Kerlix no drainage noted. ASSESSMENT: -acute congestive heart failure exacerbation and chronic congestive heart failure ejection fraction not known. -coronary artery disease, prior history of coronary artery bypass. -Persistent atrial fibrillation, rate controlled. -Chronic obstructive pulmonary disease. -Colonic diverticulosis. -Primary osteoarthritis of multiple joints. -Chronic Coumadin monitoring. -CODE STATUS: chem code PLAN: 2-D echo with Doppler pending. Sotalol and metoprolol both stopped by cardiology. Lisinopril and carvedilol initiated we'll resume aspirin and continue IV Lasix, renal function monitored daily. Plan of care discussed with the patient at the bedside he is in agreement. We will follow closely. ASH WORKER statement: Patient was seen and examined by nurse practitioner Alivia Levi and all elements of the case discussed with attending Dr. Celis
--- NOTE | 2017-03-05 14:16 | ECHOF ---
Referral Reason:chf MEASUREMENTS -------- HEIGHT: 152.4 cm WEIGHT: 88.9 kg BP: 72/54 RVIDd: 3.3 cm (< 3.3) IVSd: 1.2 cm (0.6 - 1.1) LVIDd: 4.4 cm (3.9 - 5.3) LVPWd: 1.0 cm (0.6 - 1.1) IVSs: 1.5 cm LVIDs: 4.5 cm LVPWs: 1.6 cm LA Diam: 4.8 cm (2.7 - 3.8) Ao Diam: 3.7 cm (2.0 - 3.7) AV Cusp: 1.1 cm (1.5 - 2.6) LA Diam: 5.3 cm (2.7 - 3.8) MV EXCURSION: 16.399 mm (> 18.000) MV EF SLOPE: 67 mm/s (70 - 150) EPSS: 2.4 cm MV E Primo: 0.69 m/s MV DecT: 185 ms MV A Primo: 0.30 m/s MV E/A Ratio: 2.27 RAP: 5.00 mmHg RVSP: 39.46 mmHg FINDINGS -------- Atrial fibrillation. This was a technically adequate study. Pt. not compliant. The left ventricular size is normal. There is mild concentric left ventricular hypertrophy. Overall left ventricular systolic function is low-normal with, an EF between 50 - 55 %. The LV end diastolic pressure is elevated 21.11. The right ventricle is normal in size. The left atrium is moderately dilated. The right atrial size is normal. There is mild aortic valve sclerosis. There is mild aortic regurgitation. Mild mitral annular calcification present. Mild mitral regurgitation is present. Mild tricuspid regurgitation present. There is mild pulmonary hypertension. The right ventricular systolic pressure, as measured by Doppler, is 39.46mmHg. The pulmonic valve was not well visualized. Trace/mild (physiologic) pulmonic regurgitation. The aortic root size is normal. There is no pericardial effusion. CONCLUSIONS -------- 1. Atrial fibrillation. 2. Mild mitral regurgitation is present. 3. Mild tricuspid regurgitation present. 4. There is mild pulmonary hypertension. 5. Trace/mild (physiologic) pulmonic regurgitation. 6. There is no pericardial effusion. 7. Pt. not compliant. 8. There is mild concentric left ventricular hypertrophy. 9. Overall left ventricular systolic function is low-normal with, an EF between 50 - 55 %. 10. The LV end diastolic pressure is elevated 21.11. 11. The left atrium is moderately dilated. 12. There is mild aortic valve sclerosis. 13. There is mild aortic regurgitation. 14. Mild mitral annular calcification present. [employer] AUDITOR: Salima Blas RDCS
[2017-03-05] MEDS: LISINOPRIL 2.5 MG TAB PO SCH (16:21)
[2017-03-05] MEDS: CARVEDILOL 6.25 MG TAB PO SCH ×2 (16:22)
[2017-03-05] MEDS: COLLAGENASE 250 UNIT/GM OINTMENT 30 GM TUBE TOPICAL SCH (16:22)
[2017-03-05] MEDS: ASPIRIN 81 MG PO SCH (16:23)
[2017-03-05] MEDS ORDERED: ACETAMINOPHEN TAB 325 MG TAB PO PRN (17:59)
[2017-03-05] MEDS: WARFARIN 2 MG TAB PO SCH (18:17)
[2017-03-05] MEDS: DONEPEZIL 10 MG TAB PO SCH (20:07)
--- NOTE | 2017-03-05 21:37 | PN ---
PROGRESS NOTE DATE OF SERVICE: 03/05/17. ATTENDING NOTE: This patient was seen and examined by me. I discussed with my nurse practitioner, Ms. Levi. Patient admitted with CHF exacerbation and is on IV Lasix, Remains in atrial fibrillation. Heart rate controlled. Breathing a bit better. PHYSICAL EXAMINATION: Temperature 97, pulse 72, blood pressure 103/66, lungs decreased breath sounds. JVD raised. Edema slightly decreased. INR 2.2, BUN 31, creatinine 0.91. 2D echo shows low EF 50-55%. ASSESSMENT: 1. Acute on chronic congestive heart failure exacerbation from systolic and diastolic dysfunction. Ejection fraction 50%. 2. Atrial fibrillation. Rate controlled. PLAN: Patient is on Coreg 6.25 mg and Zestril. Care was discussed with the patient. Slow to respond. MMODL / IJN: [id number] /
[2017-03-06] MEDS: FUROSEMIDE 10 MG/ML 4 ML VIAL IV SCH ×2 (00:23→05:15)
--- NOTE | 2017-03-06 00:23 | P.CONS ---
History of Present Illness - Reason for Consult Consult date: 03/05/17 - Chief Complaint shortness of breath and edema - History of Present Illness 86-year-old male presents to Hospital from The extended care facility with increasing lower extremity edema and increasing shortness of breath. He has been treated with increased diuretic therapy and is feeling considerably better. However there is an ulceration to the left heel. He is quite unaware of the ulceration. Does not know when it formed. Is unaware how it's been cared for. He is quite a poor historian. He at this time is denying fever chills or rigors. Review of Systems 86-year-old male is somewhat of a poo HEENT:Denies headache or acute visual change. Denies sinus or mouth discomforts. Denies neck stiffness or pain. Denies significant oral cavity pain. Denies difficulty on swallowing. Lungs: chronic shortness of breath Cardiovascular: Denies significant shortness of breath, chest pain, chest wall pain, orthopnea, dyspnea on exertion, syncope Gastrointestinal:Denies nausea, vomiting, diarrhea, constipation, hematemesis, melena, hematochezia. No no significant change of bowel habit noticed. Musculoskeletal: denies significant myalgias or arthralgias. No new joint swelling. Denies new back pain. Skin: ulceration left heel Neuro: Denies headache or visual change. Denies any new onset weakness or difficulty with ambulation. Denies falls or seizures. Psychiatric:Denies anxiety or depression. Endocrine: Denies significant fatigue, denies significant weight loss or weight gain. Past Medical History Past Medical History: Atrial Fibrillation, Coronary Artery Disease (CAD), Heart Failure, COPD, Myocardial Infarction (ME) Additional Past Medical History / Comment(s): per old records-fall/rt fenoral head fx, c/p. other past medical hx include: diverticulosis, colon cancer 1977(had sx-no chemo or radiation), gallstones(had sx),occ constipation, rt eye cataract, asthma as a child, hayfever, oa- rt hip, weakness, confusion Last Myocardial Infarction Date:: 1988 History of Any Multi-Drug Resistant Organisms: None Reported Past Surgical History: Bowel Resection, Cholecystectomy, Coronary Bypass/CABG, Heart Catheterization, Hernia Repair, Orthopedic Surgery, Tonsillectomy Additional Past Surgical History / Comment(s): colonoscopies,polypectomy, aaa repair 2000, triple vessel cabg 1988, lt carotid endarterectomy,rt inguinal hernia, "has teresa in colon since sx" Past Anesthesia/Blood Transfusion Reactions: No Reported Reaction Additional Past Anesthesia/Blood Transfusion Reaction / Comm: 2000-received blood -no reaction Past Psychological History: No Psychological Hx Reported Additional Psychological History / Comment(s): pt lives alone in own home, no pets,(a modular 1 level w/ 4 steps up to door).uses a walker when up.no other medical equipment at home. no outside services. still drives-goes out to breakfast every am.pt served in the [employer] and worked at [employer] till retired. Smoking Status: Former smoker Past Alcohol Use History: Unable to Obtain Additional Past Alcohol Use History / Comment(s): quit smoking 1985 stated smoked between 5-10 years 1ppd. . Resides in an extended care. 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 denies animalexposures Past Drug Use History: Unable to Obtain - Past Family History Mother Family Medical History: No Reported History Additional Family Medical History / Comment(s): from "natural causes" Father Additional Family Medical History / Comment(s): kidney failure Medications and Allergies Home Medications and Allergies Comment(s): Current Medications Acetaminophen (Tylenol Tab) 650 mg PO Q6HR PRN PRN Reason: Fever and/ or Pain Last Admin: 03/05/17 18:16 Dose: 650 mg Aspirin (Aspirin) 81 mg PO DAILY@1700 [facility] Last Admin: 03/05/17 16:23 Dose: 81 mg Atorvastatin Calcium (Lipitor) 40 mg PO DAILY [facility] Bisacodyl (Dulcolax) 10 mg RECTAL DAILY PRN PRN Reason: Constipation Carvedilol (Coreg) 6.25 mg PO BID-W/MEALS [facility] Last Admin: 03/05/17 16:22 Dose: 6.25 mg Collagenase (Santyl) 1 applic TOPICAL DAILY [facility] Last Admin: 03/05/17 16:22 Dose: 1 applic Donepezil HCl (Aricept) 10 mg PO HS [facility] Last Admin: 03/05/17 20:07 Dose: 10 mg Famotidine (Pepcid) 20 mg PO BID@0800,1700 [facility] Last Admin: 03/05/17 16:22 Dose: 20 mg Furosemide (Lasix) 40 mg IV Q8H [facility] Last Admin: 03/05/17 16:21 Dose: 40 mg Lactulose (Cephulac) 20 gm PO BID PRN PRN Reason: Constipation Lidocaine HCl (Xylocaine Jelly 2%) 1 applic TOPICAL DAILY PRN PRN Reason: L HEEL WOUND Lisinopril (Zestril) 2.5 mg PO DAILY [facility] Last Admin: 03/05/17 16:21 Dose: 2.5 mg Magnesium Hydroxide (Milk Of Magnesia) 2,400 mg PO DAILY PRN PRN Reason: Constipation Memantine (Namenda) 5 mg PO DAILY [facility] Last Admin: 03/05/17 08:11 Dose: 5 mg Multivitamins (Theragran) 1 each PO DAILY@1200 [facility] Last Admin: 03/05/17 08:11 Dose: 1 each Nitroglycerin (Nitrostat) 0.4 mg SUBLINGUAL Q5M PRN PRN Reason: Chest Pain Potassium Chloride (K-Dur 20) 20 meq PO DAILY [facility] Last Admin: 03/05/17 08:11 Dose: 20 meq Tamsulosin HCl (Flomax) 0.8 mg PO DAILY [facility] Last Admin: 03/05/17 08:11 Dose: 0.8 mg Warfarin Sodium (Coumadin) 2 mg PO SUTUTHSA [facility] Last Admin: 03/05/17 18:17 Dose: 2 mg Warfarin Sodium (Coumadin) 2.5 mg PO MoWeFr@1800 [facility] Last Admin: 03/04/17 21:49 Dose: 2.5 mg Home Medications Medication Instructions Recorded Confirmed Type Nitroglycerin Sl Tabs [Nitrostat] 0.4 mg SUBLINGUAL Q5M PRN #50 tab 08/17/1611/13 Rx Bisacodyl [Dulcolax] 10 mg RECTAL DAILY PRN 08/19/16 03/04/17 History Famotidine [Pepcid] 20 mg PO BID@0800,1700 08/19/16 03/04/17 History Magnesium Hydroxide [Milk of 2,400 mg PO DAILY PRN 08/19/16 03/04/17 History Magnesia] Menthol/Zinc Oxide [Calmoseptine 1 applic TOPICAL BID 08/19/16 03/04/17 History Ointment] Metoprolol Tartrate [Lopressor] 12.5 mg PO BID@0800,1700 08/19/16 03/04/17 History Na Phos,M-B/Na Phos,Di-Ba [Fleet 133 ml RECTAL DAILY PRN 08/19/16 03/04/17 History Adult] Sotalol [Betapace] 80 mg PO BID@0800,1700 08/19/16 03/04/17 History HYDROcodone/APAP 5-325MG [[place] 1 tab PO Q4HR PRN 09/08/16 03/04/17 History 5-325] Aspirin 81 mg PO DAILY@1700 09/10/16 03/04/17 History Collagenase [Santyl] 1 applic TOPICAL DAILY 09/10/16 03/04/17 History Lidocaine 2% Cream 1 applic TOPICAL DAILY PRN 09/10/16 03/04/17 History Multivitamins, Thera [Multivitamin 1 tab PO DAILY 09/10/16 03/04/17 History (formulary)] Acetaminophen [Tylenol 8 Hour] 650 mg PO Q4H PRN 03/04/17 03/04/17 History Albuterol Nebulized [Ventolin 2.5 mg INHALATION RT-TID 03/04/17 03/04/17 History Nebulized] Albuterol Nebulized [Ventolin 2.5 mg INHALATION RT-TID PRN 03/04/17 03/04/17 History Nebulized] Atorvastatin Calcium [Lipitor] 10 mg PO DAILY 03/04/17 03/04/17 History Donepezil [Aricept] 10 mg PO HS 03/04/17 03/04/17 History Furosemide [Lasix] 40 mg PO DAILY 03/04/17 03/04/17 History Lactulose [Cephulac] 20 gm PO BID PRN 03/04/17 03/04/17 History Memantine HCl [Namenda Xr] 7 mg PO DAILY 03/04/17 03/04/17 History Potassium Chloride [Klor-Con 20] 20 meq PO DAILY 03/04/17 03/04/17 History Tamsulosin HCl [Flomax] 0.8 mg PO DAILY 03/04/17 03/04/17 History Warfarin [Coumadin] 2 mg PO SUTUTHSA 03/04/17 03/04/17 History Warfarin [Coumadin] 2.5 mg PO MOWEFR 03/04/17 03/04/17 History Allergies Allergy/AdvReac Type Severity Reaction Status Date / Time No Known Allergies Allergy Verified 03/04/17 14:40 Physical Exam Vitals: Vital Signs Temp Pulse Pulse Resp BP BP Pulse Ox 03/05/17 20:00 98.3 F 68 18 83/50 94 L 03/05/17 16:00 96.8 F L 67 18 116/70 97 03/05/17 11:46 67 20 03/05/17 11:45 96.9 F L 67 20 129/67 96 03/05/17 08:00 97.0 F L 72 20 103/66 95 03/05/17 04:00 97.4 F L 64 18 92/54 94 L Intake and Output 03/05/17 03/05/17 03/06/17 14:59 22:59 06:59 Intake Total 356 200 Balance 356 200 Intake: Oral 356 200 Other: Voiding Method Urinal Urinal Diaper Diaper Incontinent Incontinent # Voids 2 2 # Bowel Movements 1 Weight 89 kg Patient Weight 03/06/17 06:59 Weight 89 kg 86-year-old malewho is cooperative but is a poor historian seems to be quite comfortable HEENT: Anicteric conjunctiva are pink and moist nasal mucosa grossly intact without significant lesions, there is no thrush. Neck: The neck is supple without significant lymphadenopathy or thyromegaly. Lungs: Good bilateral air entry without significant crackles or wheezing. There is no significant bronchial sounds. There is no egophony or dullness. Heart: Regular rate and rhythm with an audible S1-S2, no S3 no S4. There is no significant murmur click or rub, PMI was nondisplaced. Abdomen: Positive bowel sounds soft and nontender without palpable masses or organomegaly. There was no guarding or rebound. Extremities: the upper extremities reveal evidence IV site is intact. The lower extremity showed evidence of the linear wrinkling The ulceration to the heel on the Left foot reveals evidence of a 2 x 2 by 0.2 cm ulceration that has some slough at the base. Neuro: Awake alert oriented to person place and time. There are no acute new gross focal sensory motor deficits. Results CBC & Chem 7: 03/04/17 15:00 03/05/17 06:19 Labs: Abnormal Lab Results - Last 24 Hours (Table) 03/05/17 03/05/17 Range/Units 06:19 06:19 PT 21.0 H (9.0-12.0) sec INR 2.2 H (<1.2) BUN 31 H (9-20) mg/dL Laboratory Results WBC 3.9 k/uL (3.8-10.6) 03/04/17 15:00 RBC 3.87 m/uL (4.30-5.90) L 03/04/17 15:00 Hgb 12.9 gm/dL (13.0-17.5) L 03/04/17 15:00 Hct 41.6 % (39.0-53.0) 03/04/17 15:00 MCV 107.4 fL (80.0-100.0) H 03/04/17 15:00 MCH 33.4 pg (25.0-35.0) 03/04/17 15:00 MCHC 31.1 g/dL (31.0-37.0) 03/04/17 15:00 RDW 17.0 % (11.5-15.5) H 03/04/17 15:00 Plt Count 56 k/uL (150-450) L 03/04/17 15:00 Neutrophils % 69 % 03/04/17 15:00 Lymphocytes % 20 % 03/04/17 15:00 Monocytes % 7 % 03/04/17 15:00 Eosinophils % 2 % 03/04/17 15:00 Basophils % 0 % 03/04/17 15:00 Neutrophils # 2.7 k/uL (1.3-7.7) 03/04/17 15:00 Lymphocytes # 0.8 k/uL (1.0-4.8) L 03/04/17 15:00 Monocytes # 0.3 k/uL (0-1.0) 03/04/17 15:00 Eosinophils # 0.1 k/uL (0-0.7) 03/04/17 15:00 Basophils # 0.0 k/uL (0-0.2) 03/04/17 15:00 Manual Slide Review Performed 03/04/17 15:00 Poikilocytosis (manual Present 03/04/17 15:00 Anisocytosis Slight 03/04/17 15:00 Macrocytosis Marked 03/04/17 15:00 PT 21.0 sec (9.0-12.0) H 03/05/17 06:19 INR 2.2 (<1.2) H 03/05/17 06:19 APTT 30.4 sec (22.0-30.0) H 03/04/17 15:00 Sodium 140 mmol/L (137-145) 03/05/17 06:19 Potassium 4.1 mmol/L (3.5-5.1) 03/05/17 06:19 Chloride 104 mmol/L (98-107) 03/05/17 06:19 Carbon Dioxide 28 mmol/L (22-30) 03/05/17 06:19 Anion Gap 8 mmol/L 03/05/17 06:19 BUN 31 mg/dL (9-20) H 03/05/17 06:19 Creatinine 0.91 mg/dL (0.66-1.25) 03/05/17 06:19 Est GFR (MDRD) Af Amer >60 (>60 ml/min/1.73 sqM) 03/05/17 06:19 Est GFR (MDRD) Non-Af >60 (>60 ml/min/1.73 sqM) 03/05/17 06:19 Glucose 83 mg/dL (74-99) 03/05/17 06:19 Calcium 9.0 mg/dL (8.4-10.2) 03/05/17 06:19 Magnesium 1.9 mg/dL (1.6-2.3) 03/04/17 15:00 Total Bilirubin 1.1 mg/dL (0.2-1.3) 03/04/17 15:00 AST 22 U/L (17-59) 03/04/17 15:00 ALT 28 U/L (21-72) 03/04/17 15:00 Alkaline Phosphatase 106 U/L (38-126) 03/04/17 15:00 Total Creatine Kinase <20 U/L (55-170) L 03/04/17 15:00 CK-MB (CK-2) 1.1 ng/mL (0.0-2.4) 03/04/17 15:00 CK-MB (CK-2) Rel Index 03/04/17 15:00 Troponin I <0.012 ng/mL (0.000-0.034) 03/04/17 15:00 NT-Pro-B Natriuret Pep 5070 pg/mL 03/04/17 15:00 Total Protein 6.4 g/dL (6.3-8.2) 03/04/17 15:00 Albumin 3.0 g/dL (3.5-5.0) L 03/04/17 15:00 Assessment and Plan (1) Acute pulmonary edema Status: Acute (2) Bilateral lower extremity edema Status: Acute (3) Ulcer of left heel and midfoot with fat layer exposed Narrative/Plan: 86-year-old male presents to Hospital from extended care facility with much increased shortness of breath and lower extremity edema. With intravenous diuresis he is now doing considerably better. The edema is improved. Is feeling somewhat better. There is notation of an ulceration to the left heel. Offloading to the site, Santyl dressing will be utilized. Ensuring that he has adequate nutrition will be helpful. A multivitamin if she is allowed will also be helpful. Adequate protein helps with his healing process also. At discharge we'll have the new protocol for his diuretic therapy which also help with the healing process. Status: Acute
[2017-03-06 06:28] LABS: INR 2.4 (<1.2)
[2017-03-06 06:38] LABS: Anion Gap 8 mmol/L; Blood Urea Nitrogen 31 mg/dL (9-20); Calcium 9.1 mg/dL (8.4-10.2); Carbon Dioxide 34 mmol/L (22-30); Chloride 98 mmol/L (98-107); Glucose 101 mg/dL (74-99); Non-African American GFR(MDRD) >60 (>60 ml/min/1.73 sqM); Potassium 3.8 mmol/L (3.5-5.1); Sodium 140 mmol/L (137-145)
[2017-03-06] MEDS: MULTIVITAMINS, THERA 1 EACH TAB PO SCH (08:04)
[2017-03-06] MEDS: TAMSULOSIN 0.4 MG CAP.ER.24H PO SCH (08:04)
[2017-03-06] MEDS: FAMOTIDINE 20 MG TAB PO SCH ×2 (08:05→17:07)
[2017-03-06] MEDS: ATORVASTATIN 40 MG TAB PO SCH (08:05)
[2017-03-06] MEDS: COLLAGENASE 250 UNIT/GM OINTMENT 30 GM TUBE TOPICAL SCH (08:05)
[2017-03-06] MEDS: MEMANTINE 5 MG TAB PO SCH (08:05)
[2017-03-06] MEDS: POTASSIUM CHLORIDE ER 20 MEQ TAB.ER PO SCH (08:05)
[2017-03-06] MEDS: LISINOPRIL 2.5 MG TAB PO SCH (12:18)
[2017-03-06] MEDS: CARVEDILOL 6.25 MG TAB PO SCH (12:18)
--- NOTE | 2017-03-06 12:29 | P.PN ---
Subjective Progress Note Date: 03/06/17 The patient was admitted because of symptoms of progressive dyspnea and peripheral edema. He is a very poor historian and confused as well. His blood pressure has been on the low side but there is no evidence of tachycardia or bradycardia arrhythmia. He denies any symptoms of chest discomfort or change in his breathing. He has continued to be on intravenous diuretics. He has a history of chronic atrial fibrillation and has been anticoagulated. He status post stenting of his saphenous vein graft to the left circumflex in July of this year. His echocardiogram showed an ejection fraction of 50-55% with mild mitral and tricuspid regurgitation. Objective - Vital Signs Vital signs: Vital Signs Temp 98.1 F 03/06/17 11:36 Pulse 61 03/06/17 11:36 Resp 16 03/06/17 11:36 BP 91/45 03/06/17 11:36 Pulse Ox 96 03/06/17 11:36 Intake & Output 03/05/17 03/06/17 03/06/17 18:59 06:59 18:59 Intake Total 556 420 Balance 556 420 Weight 89 kg 83 kg Intake: Oral 556 420 Other: Voiding Method Urinal Urinal Urinal Diaper Diaper Diaper Incontinent Incontinent Incontinent # Voids 2 3 # Bowel Movements 1 4 - Exam Lungs: Mild decrease in the breath sounds at the bases Heart: Irregularly irregular, S1-S2, systolic murmur at the base Abdomen: Soft nontender, no organomegaly. Extremities: +1 edema improved since yesterday. - Labs CBC & Chem 7: 03/04/17 15:00 03/06/17 05:59 Labs: Abnormal Lab Results - Last 24 Hours (Table) 03/06/17 03/06/17 Range/Units 05:59 05:59 PT 23.0 H (9.0-12.0) sec INR 2.4 H (<1.2) Carbon Dioxide 34 H (22-30) mmol/L BUN 31 H (9-20) mg/dL Glucose 101 H (74-99) mg/dL Assessment and Plan Plan: Impression: 1. Chronic atrial fibrillation, anticoagulated 2. Congestive heart failure with preserved systolic function. 3. CAD. 4. Hyperlipidemia 5. Hypotension. Plan: I will decrease the dose of his IV Lasix, switch him from Coreg to metoprolol because of his hypotension, we'll follow his renal function and depending on his progress further recommendations will be made.
--- NOTE | 2017-03-06 13:07 | P.PN ---
Progress Note - Text Progress Note Date: 03/06/17 DATE OF SERVICE: 03/06/2017 PRESENTING COMPLAINT: increasing shortness of breath HISTORY OF PRESENT ILLNESS: 86-year-old male who lives by himself came in feeling weak tired and rundown developed swelling in his lower extremities.diagnostic testing revealed congestive heart failure exacerbation and was admitted for the same. INTERVAL HISTORY: 03/06/2017: Patient lying in bed appears comfortable, breathing easily and has some confusion. diuresing well, IV Lasix dose decreased today. Had some hypotension medication switched from Coreg to metoprolol. Left heel wound dressed with Kerlix and Santyl per ID.rhythm remains in atrial fibrillation rate controlled. tolerating his diet eating about 30-40% of his meals, up with assistance. 03/05/2017: Patient lying in bed appears comfortable breathing easily.has a component of confusion. left heel wound dressed with Kerlix, no drainage noted. remains in atrial fibrillation rate controlled, cardiology to see the patient await their recommendations. Tolerating his diet eating about 50% of his meal. Ambulatory with assistance. REVIEW OF SYSTEMS: Done for constitutional ,cardiovascular, GI, pulmonary, integument with relevant findings as above. CURRENT MEDICATIONS aspirin, Lipitor, Coreg 6.25 mg by mouth twice a day, Aricept 10 mg by mouth at bedtime, Lasix 40 mg IV every12 hours, lisinopril 2.5 mg by mouth daily, Namenda 5 mg by mouth daily,potassium chloride 20 milliequivalents by mouth daily, tamsulosin 0.8 mg by mouth daily PHYSICAL EXAM VITAL SIGNS: temperature 97.0, pulse 72, respiratory rate 20, blood pressure 103/66, oxygen saturation 95% on 2 L. GENERAL APPEARANCE: Lying in bed, not in distress. EYES: Pupils equal. Conjunctiva normal. NECK: JVD raised. Mass not palpable. RESPIRATORY: Respiratory effort normal. Lungs diminished with scattered crackles throughout to auscultation. CARDIOVASCULAR: irregular rhythml. moderate edema up to the thighs ABDOMEN: Soft. Liver and spleen not palpable. No tenderness. No mass palpable. PSYCHIATRY: able to answer simple straightforward questions. Mood and affect normal. INTEGUMENT: Left heel wound about 2 cm in diameter INVESTIGATIONS:left heel wound 2 cm in diameter with a Telfa pad and Kerlix no drainage noted. ASSESSMENT: -acute congestive heart failure exacerbation and chronic congestive heart failure in a patient whose ejection fraction 50-55%. -coronary artery disease, prior history of coronary artery bypass. -Persistent atrial fibrillation, rate controlled. -Chronic obstructive pulmonary disease. -Colonic diverticulosis. -Primary osteoarthritis of multiple joints. -Chronic Coumadin monitoring. -CODE STATUS: chem code PLAN: IV Lasix to continue, metoprolol added, Coumadin for anticoagulation needs.we will continue to follow closely. SAFETY DIRECTOR statement: Patient was seen and examined by nurse practitioner Alivia Levi and all elements of the case discussed with attending Dr. Celis
[2017-03-06] MEDS: ASPIRIN 81 MG PO SCH (17:07)
[2017-03-06] MEDS: WARFARIN 2 MG TAB PO SCH (17:08)
[2017-03-06] MEDS ORDERED: FUROSEMIDE 10 MG/ML 4 ML VIAL IV SCH (21:00)
[2017-03-06] MEDS: METOPROLOL TARTRATE 12.5 MG TAB PO SCH (21:09)
[2017-03-06] MEDS: DONEPEZIL 10 MG TAB PO SCH (21:09)
--- NOTE | 2017-03-07 05:32 | PN ---
PROGRESS NOTE DATE OF SERVICE: 03/06/2017 ATTENDING NOTE: This patient was seen and examined by me. I discussed with nurse practitioner, Ms. Levi. Patient admitted with CHF, getting IV Lasix, diuresing well. The patient is incontinent, hence, strict I's & O's not been maintained. Eating some. PHYSICAL EXAMINATION: On examination, JVD raised. LUNGS: Decreased breath sounds. Decreased crackles. Edema decreased. INVESTIGATIONS: INR 2.4. Potassium 3.8. BUN 31, creatinine 1.0. ASSESSMENT: 1. Acute congestive heart failure exacerbation from diastolic dysfunction, slow to respond. 2. Persistent atrial fibrillation. 3. Coumadin monitoring. 4. Left heel wound, decub present on admission. PLAN: Coreg was switched over to metoprolol as Coreg was discontinued. IV Lasix to continue. Overall prognosis guarded. MMODL / IJN: [id number] /
[2017-03-07 06:47] LABS: INR 2.3 (<1.2); Prothrombin Time 22.2 sec (9.0-12.0)
[2017-03-07 07:19] LABS: Anion Gap 7 mmol/L; Blood Urea Nitrogen 30 mg/dL (9-20); Calcium 9.1 mg/dL (8.4-10.2); Carbon Dioxide 34 mmol/L (22-30); Chloride 99 mmol/L (98-107); Glucose 124 mg/dL (74-99); Non-African American GFR(MDRD) >60 (>60 ml/min/1.73 sqM); Potassium 3.9 mmol/L (3.5-5.1); Sodium 140 mmol/L (137-145)
[2017-03-07 08:59] VITALS: TEMP 96.9
--- NOTE | 2017-03-07 09:53 | PN ---
PROGRESS NOTE Mr. Avalos is an 86-year-old male with history of chronic atrial fibrillation, who presented with worsening edema. I am not able to obtain a good history from him. Clinically, he appears to be stable. He has a known history of coronary artery disease, status post coronary artery bypass grafting and ischemic cardiomyopathy in the past, although his echocardiogram during this admission appears to be stable. He denies any dizziness or palpitation. Hemodynamically, he is stable. He started his treatment which includes lisinopril 2.5 mg daily, metoprolol tartrate 12.5 mg twice a day, Lasix 40 mg IV q.12 hours, Lipitor in addition to aspirin 81 mg daily and Coumadin. PHYSICAL EXAMINATION: Blood pressure 119/80 with a heart in the 80s. LUNGS: No wheezes. HEART: Irregular, irregular. S1, S2. No S3 with systolic murmur. No diastolic murmur. ABDOMEN: Soft, nontender. EXTREMITIES: Trace to 1+ edema, improved compared with yesterday. LAB DATA: His lab data revealed BUN and creatinine of 30 and 1.06. Potassium 3.9. His INR of 2.3. IMPRESSION: 1. Symptoms of congestive heart failure, probably on the basis of diastolic dysfunction with preserved systolic function. 2. History of coronary artery disease, status post coronary artery bypass grafting. 3. Hyperlipidemia. 4. Atrial fibrillation. RECOMMENDATION: I will switch him to oral diuretic. Continue with his medical regimen. Depending on his progress, further recommendation will be made. MMODL / IJN: [id number] /
[2017-03-07] MEDS: POTASSIUM CHLORIDE ER 20 MEQ TAB.ER PO SCH (09:58)
[2017-03-07] MEDS: ATORVASTATIN 40 MG TAB PO SCH (09:58)
[2017-03-07] MEDS: TAMSULOSIN 0.4 MG CAP.ER.24H PO SCH (09:58)
[2017-03-07] MEDS: FAMOTIDINE 20 MG TAB PO SCH (09:58)
[2017-03-07] MEDS: COLLAGENASE 250 UNIT/GM OINTMENT 30 GM TUBE TOPICAL SCH (09:59)
[2017-03-07] MEDS: LISINOPRIL 2.5 MG TAB PO SCH (09:59)
[2017-03-07] MEDS: METOPROLOL TARTRATE 12.5 MG TAB PO SCH (09:59)
[2017-03-07] MEDS: MEMANTINE 5 MG TAB PO SCH (09:59)
[2017-03-07] MEDS: MULTIVITAMINS, THERA 1 EACH TAB PO SCH (13:27)
--- NOTE | 2017-03-07 14:10 | P.DS ---
Providers Date of admission: 03/04/17 16:26 Expected date of discharge: 03/07/17 Attending physician: Jose Luis Celis Consults: 03/04/17 16:26 Consult Physician Routine Consulting Provider: Cardiology Esthela Consult Reason/Comments: Acute pulmonary edema Do you want consulting provider notified?: Yes 03/04/17 18:51 Consult Physician Routine Consulting Provider: Sven Ny Reason/Comments: CHRONIC FOOT ULCER Do you want consulting provider notified?: Yes Primary care physician: [facility] Course: FINAL DIAGNOSES: acute congestive heart failure exacerbation and chronic congestive heart failure from systolic dysfunction in a patient whose ejection fraction is 50-55% . -coronary artery disease, prior history of coronary artery bypass. -left heel wound/decubitus ulcer, present on admission -Persistent atrial fibrillation, rate controlled. -Chronic obstructive pulmonary disease. -Colonic diverticulosis. -Primary osteoarthritis of multiple joints. -Chronic Coumadin monitoring. -CODE STATUS: chem code HOSPTIAL COURSE: 86-year-old male who lives at an extended care facilitywas experiencing increasing shortness of breath and edema EKG on admission showed atrial fibrillation with a heart rate of 55. Diagnostic images revealed basilar pleural effusions and infiltrates pulmonary venous congestion, laboratory values [place] 5070. patient admitted for the same. patient was found to have a wound on his left heel at time of admission. home medications reordered,Cardiology and infectious disease consulted. Cardiology added IV Lasix, patient diuresed well.sotalol and metoprolol stopped lisinopril and carvedilol added.patient became hypotensive IV Lasix was reduced, Coreg was switched to metoprolol. Her pressure normalized, in preparation for discharge IV Lasix switched to by mouth.infectious disease saw the patient evaluated the left heel recommended Santyl dressing changes as needed. Vital signs are stable , tolerating his diet, requires assistance in getting around, moving his bowels. Overall patient condition improved and is stable for discharge back to the extended care facility. PHYSICAL EXAM: CARDIOVASCULAR: irregular rhythm, mild edema up to the level of his knees bilaterally RESPIRATORY: respiratory effort normal, lung sounds diminished bilaterally with faint crackles noted to the bases MUSKULOSKELETAL:lower extremity weakness requiring assistance to get about, uses a walker INTEGUMENT: Left heel stage I wound, present on admission, Santyl with gauze dressing in place. Patient was seen and examined by nurse practitioner Alivia Levi in all elements of the case discussed with attending Dr. Celis DISPOSITION:return to [facility]. Patient Condition at Discharge: Stable Plan - Discharge Summary New Discharge Prescriptions: New Lisinopril [Zestril] 2.5 mg PO DAILY #30 tab Atorvastatin [Lipitor] 40 mg PO DAILY #30 tab Continue Nitroglycerin Sl Tabs [Nitrostat] 0.4 mg SUBLINGUAL Q5M PRN #50 tab PRN Reason: Chest Pain Bisacodyl [Dulcolax] 10 mg RECTAL DAILY PRN PRN Reason: Constipation Magnesium Hydroxide [Milk of Magnesia] 2,400 mg PO DAILY PRN PRN Reason: Constipation Menthol/Zinc Oxide [Calmoseptine Ointment] 1 applic TOPICAL BID Na Phos,M-B/Na Phos,Di-Ba [Fleet Adult] 133 ml RECTAL DAILY PRN PRN Reason: Constipation Famotidine [Pepcid] 20 mg PO BID@0800,1700 Metoprolol Tartrate [Lopressor] 12.5 mg PO BID@0800,1700 Collagenase [Santyl] 1 applic TOPICAL DAILY Lidocaine 2% Cream 1 applic TOPICAL DAILY PRN PRN Reason: L HEEL WOUND Multivitamins, Thera [Multivitamin (formulary)] 1 tab PO DAILY Aspirin 81 mg PO DAILY@1700 Acetaminophen [Tylenol 8 Hour] 650 mg PO Q4H PRN PRN Reason: Mild Discomfort Albuterol Nebulized [Ventolin Nebulized] 2.5 mg INHALATION RT-TID PRN PRN Reason: Shortness Of Breath Albuterol Nebulized [Ventolin Nebulized] 2.5 mg INHALATION RT-TID Donepezil [Aricept] 10 mg PO HS Lactulose [Cephulac] 20 gm PO BID PRN PRN Reason: Constipation Memantine HCl [Namenda Xr] 7 mg PO DAILY Potassium Chloride [Klor-Con 20] 20 meq PO DAILY Tamsulosin HCl [Flomax] 0.8 mg PO DAILY Warfarin [Coumadin] 2 mg PO SUTUTHSA Warfarin [Coumadin] 2.5 mg PO MOWEFR HYDROcodone/APAP 5-325MG [Akeley 5-325] 1 tab PO Q4HR PRN #20 PRN Reason: Pain Changed Furosemide [Lasix] 40 mg PO BID #60 Discontinued Sotalol [Betapace] 80 mg PO BID@0800,1700 Atorvastatin Calcium [Lipitor] 10 mg PO DAILY Discharge Medication List Nitroglycerin Sl Tabs [Nitrostat] 0.4 mg SUBLINGUAL Q5M PRN #50 tab 08/17/16 [Rx ] Bisacodyl [Dulcolax] 10 mg RECTAL DAILY PRN 08/19/16 [History] Famotidine [Pepcid] 20 mg PO BID@0800,1700 08/19/16 [History] Magnesium Hydroxide [Milk of Magnesia] 2,400 mg PO DAILY PRN 08/19/16 [History] Menthol/Zinc Oxide [Calmoseptine Ointment] 1 applic TOPICAL BID 08/19/16 [ History] Metoprolol Tartrate [Lopressor] 12.5 mg PO BID@0800,1700 08/19/16 [History] Na Phos,M-B/Na Phos,Di-Ba [Fleet Adult] 133 ml RECTAL DAILY PRN 08/19/16 [ History] Aspirin 81 mg PO DAILY@1700 09/10/16 [History] Collagenase [Santyl] 1 applic TOPICAL DAILY 09/10/16 [History] Lidocaine 2% Cream 1 applic TOPICAL DAILY PRN 09/10/16 [History] Multivitamins, Thera [Multivitamin (formulary)] 1 tab PO DAILY 09/10/16 [History ] Acetaminophen [Tylenol 8 Hour] 650 mg PO Q4H PRN 03/04/17 [History] Albuterol Nebulized [Ventolin Nebulized] 2.5 mg INHALATION RT-TID 03/04/17 [ History] Albuterol Nebulized [Ventolin Nebulized] 2.5 mg INHALATION RT-TID PRN 03/04/17 [ History] Donepezil [Aricept] 10 mg PO HS 03/04/17 [History] Lactulose [Cephulac] 20 gm PO BID PRN 03/04/17 [History] Memantine HCl [Namenda Xr] 7 mg PO DAILY 03/04/17 [History] Potassium Chloride [Klor-Con 20] 20 meq PO DAILY 03/04/17 [History] Tamsulosin HCl [Flomax] 0.8 mg PO DAILY 03/04/17 [History] Warfarin [Coumadin] 2 mg PO SUTUTHSA 03/04/17 [History] Warfarin [Coumadin] 2.5 mg PO MOWEFR 03/04/17 [History] Atorvastatin [Lipitor] 40 mg PO DAILY #30 tab 03/07/17 [Rx] Furosemide [Lasix] 40 mg PO BID #60 03/07/17 [Rx] HYDROcodone/APAP 5-325MG [Akeley 5-325] 1 tab PO Q4HR PRN #20 03/07/17 [Rx] Lisinopril [Zestril] 2.5 mg PO DAILY #30 tab 03/07/17 [Rx] Follow up Appointment(s)/Referral(s): Radhika Cao MD [STAFF PHYSICIAN] - 1 Week Doug White DO [Primary Care Provider] - 03/08/17 Ambulatory/Diagnostic Orders: Basic Metabolic Panel [LAB.AMB] Location: Determined By Patient Prothrombin Time INR [LAB.AMB] Location: Determined By Patient Patient Instructions/Handouts: Heart Failure (DC), Pulmonary Edema (DC), Heart Healthy Diet (DC), Edema (DC) Activity/Diet/Wound Care/Special Instructions: left heel wound to be dressed with santyl telfa pad and kerlix. Should off load the left heel when walking. Discharge Disposition: TRANSFER TO SNF/ECF
[2017-03-07 17:48] VITALS: BP 105/68; PULSE 66; RESP 18
--- NOTE | 2017-03-07 20:50 | P.PN ---
Subjective Progress Note Date: 03/07/17 Principal diagnosis: Shortness of breath and edema 86-year-old male presents to Hospital from The extended care facility with increasing lower extremity edema and increasing shortness of breath. He has been treated with increased diuretic therapy and is feeling considerably better. However there is an ulceration to the left heel. He is quite unaware of the ulceration. Does not know when it formed. Is unaware how it's been cared for. He is quite a poor historian. He at this time is denying fever chills or rigors. Patient feeling better today. He for discharge back to the extended care facility. Objective - Vital Signs Vital signs: Vital Signs Temp 96.9 F L 03/07/17 16:00 Pulse 66 03/07/17 16:00 Resp 18 03/07/17 16:00 BP 105/68 03/07/17 16:00 Pulse Ox 95 03/07/17 16:00 Intake & Output 03/07/17 03/07/17 03/08/17 06:59 18:59 06:59 Intake Total 520 Balance 520 Weight 82 kg 82 kg Intake: Oral 520 Other: Voiding Method Urinal Urinal Diaper Diaper Incontinent Incontinent # Voids 3 3 # Bowel Movements 3 - Exam 86-year-old malewho is cooperative but is a poor historian seems to be quite comfortable HEENT: Anicteric conjunctiva are pink and moist nasal mucosa grossly intact without significant lesions, there is no thrush. Neck: The neck is supple without significant lymphadenopathy or thyromegaly. Lungs: Good bilateral air entry without significant crackles or wheezing. There is no significant bronchial sounds. There is no egophony or dullness. Heart: Regular rate and rhythm with an audible S1-S2, no S3 no S4. There is no significant murmur click or rub, PMI was nondisplaced. Abdomen: Positive bowel sounds soft and nontender without palpable masses or organomegaly. There was no guarding or rebound. Extremities: the upper extremities reveal evidence IV site is intact. The lower extremity showed evidence of the linear wrinkling The ulceration to the heel on the Left foot reveals evidence of a 2 x 2 by 0.2 cm ulceration that has some slough at the base. Neuro: Awake alert oriented to person place and time. There are no acute new gross focal sensory motor deficits. - Labs CBC & Chem 7: 03/04/17 15:00 03/07/17 06:26 Labs: Abnormal Lab Results - Last 24 Hours (Table) 03/07/17 03/07/17 Range/Units 06:26 06:26 PT 22.2 H (9.0-12.0) sec INR 2.3 H (<1.2) Carbon Dioxide 34 H (22-30) mmol/L BUN 30 H (9-20) mg/dL Glucose 124 H (74-99) mg/dL Laboratory Results WBC 3.9 k/uL (3.8-10.6) 03/04/17 15:00 RBC 3.87 m/uL (4.30-5.90) L 03/04/17 15:00 Hgb 12.9 gm/dL (13.0-17.5) L 03/04/17 15:00 Hct 41.6 % (39.0-53.0) 03/04/17 15:00 MCV 107.4 fL (80.0-100.0) H 03/04/17 15:00 MCH 33.4 pg (25.0-35.0) 03/04/17 15:00 MCHC 31.1 g/dL (31.0-37.0) 03/04/17 15:00 RDW 17.0 % (11.5-15.5) H 03/04/17 15:00 Plt Count 56 k/uL (150-450) L 03/04/17 15:00 Neutrophils % 69 % 03/04/17 15:00 Lymphocytes % 20 % 03/04/17 15:00 Monocytes % 7 % 03/04/17 15:00 Eosinophils % 2 % 03/04/17 15:00 Basophils % 0 % 03/04/17 15:00 Neutrophils # 2.7 k/uL (1.3-7.7) 03/04/17 15:00 Lymphocytes # 0.8 k/uL (1.0-4.8) L 03/04/17 15:00 Monocytes # 0.3 k/uL (0-1.0) 03/04/17 15:00 Eosinophils # 0.1 k/uL (0-0.7) 03/04/17 15:00 Basophils # 0.0 k/uL (0-0.2) 03/04/17 15:00 Manual Slide Review Performed 03/04/17 15:00 Poikilocytosis (manual Present 03/04/17 15:00 Anisocytosis Slight 03/04/17 15:00 Macrocytosis Marked 03/04/17 15:00 PT 22.2 sec (9.0-12.0) H 03/07/17 06:26 INR 2.3 (<1.2) H 03/07/17 06:26 APTT 30.4 sec (22.0-30.0) H 03/04/17 15:00 Sodium 140 mmol/L (137-145) 03/07/17 06:26 Potassium 3.9 mmol/L (3.5-5.1) 03/07/17 06:26 Chloride 99 mmol/L (98-107) 03/07/17 06:26 Carbon Dioxide 34 mmol/L (22-30) H 03/07/17 06:26 Anion Gap 7 mmol/L 03/07/17 06:26 BUN 30 mg/dL (9-20) H 03/07/17 06:26 Creatinine 1.06 mg/dL (0.66-1.25) 03/07/17 06:26 Est GFR (MDRD) Af Amer >60 (>60 ml/min/1.73 sqM) 03/07/17 06:26 Est GFR (MDRD) Non-Af >60 (>60 ml/min/1.73 sqM) 03/07/17 06:26 Glucose 124 mg/dL (74-99) H 03/07/17 06:26 Calcium 9.1 mg/dL (8.4-10.2) 03/07/17 06:26 Magnesium 1.9 mg/dL (1.6-2.3) 03/06/17 05:59 Total Bilirubin 1.1 mg/dL (0.2-1.3) 03/04/17 15:00 AST 22 U/L (17-59) 03/04/17 15:00 ALT 28 U/L (21-72) 03/04/17 15:00 Alkaline Phosphatase 106 U/L (38-126) 03/04/17 15:00 Total Creatine Kinase <20 U/L (55-170) L 03/04/17 15:00 CK-MB (CK-2) 1.1 ng/mL (0.0-2.4) 03/04/17 15:00 CK-MB (CK-2) Rel Index 03/04/17 15:00 Troponin I <0.012 ng/mL (0.000-0.034) 03/04/17 15:00 NT-Pro-B Natriuret Pep 5070 pg/mL 03/04/17 15:00 Total Protein 6.4 g/dL (6.3-8.2) 03/04/17 15:00 Albumin 3.0 g/dL (3.5-5.0) L 03/04/17 15:00 Assessment and Plan (1) Acute pulmonary edema Status: Acute (2) Bilateral lower extremity edema Status: Acute (3) Ulcer of left heel and midfoot with fat layer exposed Narrative/Plan: 86-year-old male presents to Hospital from [facility] with much increased shortness of breath and lower extremity edema. With intravenous diuresis he is now doing considerably better. The edema is improved. Is feeling somewhat better. There is notation of an ulceration to the left heel. Offloading to the site, Santyl dressing will be utilized. This should be applied daily with a saline moistened dressing over it and wrapping in place. He'll need to have a heals up position. Ensuring that he has adequate nutrition will be helpful. A multivitamin is allowed will also be helpful. Adequate protein helps with his healing process also. At discharge we'll have the new protocol for his diuretic therapy which also help with the healing process. Status: Acute
[2017-03-07] MEDS ORDERED: FUROSEMIDE 40 MG TAB PO SCH (21:00)
[2017-03-08] MEDS ORDERED: ASPIRIN 81 MG PO SCH (09:00)
--- NOTE | 2017-03-09 06:26 | DS ---
DISCHARGE SUMMARY DATE OF SERVICE: 03/08/2017 ATTENDING NOTE: Patient was seen and examined by me. I discussed with my nurse practitioner, Ms. Levi. The patient was admitted with CHF exacerbation on IV Lasix, done really well. Breathing has improved. ON EXAM: LUNGS: Decreased breath sounds. Edema has gone down. Blood pressure 105/68. Seen by Dr. Cao from Cardiology. Given his age, overall prognosis is guarded. Zestril was added. The patient is on Coumadin. Discharge planning more than 35 minutes. MMODL / IJN: [id number] /
--- NOTE | 2017-03-28 05:48 | DS ---
DISCHARGE SUMMARY CORRECTION TO DISCHARGE SUMMARY: DATE OF ADMISSION: 03/04/2017 DATE OF DISCHARGE: 03/07/2017 FINAL DIAGNOSIS: Acute on chronic congestive heart failure exacerbation from diastolic dysfunction. The patient's ejection fraction 50% to55% from underlying coronary artery disease. EMILY / DANIELA: [id number] /
== END 2017-03-07 18:16 | DRG 291 ==
LOC: EC 14:24 → 6SEL 16:26
PROVIDERS: ADMIT Hospitalist; ATTEND Hospitalist
DX: I50.33 Acute on chronic diastolic (congestive) heart failure (principal); L89.624 Pressure ulcer of left heel, stage 4; I95.9 Hypotension, unspecified; I48.1 Persistent atrial fibrillation; J44.9 Chronic obstructive pulmonary disease, unspecified; I25.5 Ischemic cardiomyopathy; I08.3 Combined rheumatic disorders of mitral, aortic and tricuspid valves; Z95.1 Presence of aortocoronary bypass graft; Z66 Do not resuscitate; R32 Unspecified urinary incontinence; E78.5 Hyperlipidemia, unspecified; I25.10 Atherosclerotic heart disease of native coronary artery without angina pectoris; K57.30 Diverticulosis of large intestine without perforation or abscess without bleeding; M19.91 Primary osteoarthritis, unspecified site; I25.2 Old myocardial infarction; H26.9 Unspecified cataract; Z79.82 Long term (current) use of aspirin; Z79.01 Long term (current) use of anticoagulants; Z79.899 Other long term (current) drug therapy; Z85.038 Personal history of other malignant neoplasm of large intestine; Z86.79 Personal history of other diseases of the circulatory system; Z90.49 Acquired absence of other specified parts of digestive tract; Z87.891 Personal history of nicotine dependence
CPT/HCPCS: 36415; 71020; 80048; 80053; 82550; 82553; 83735; 83880; 84484; 85025; 85610; 85730; 93005; 93306; 99291